=== PATIENT | male | born 1985 | race Caucasian/White ===

== ENCOUNTER 2020-05-03 13:34 | Outpatient (REF) | payer OTHER, SELFPAY ==
--- NOTE | 2020-05-03 13:35 | XR_ITS ---
EXAMINATION: XR KNEES, BILATERAL STANDING XR KNEE, RIGHT XR KNEE, LEFT CLINICAL INFORMATION: Pain COMPARISON: None TECHNIQUE: AP standing views of both knees as well as sunrise and lateral views of each knee. FINDINGS: There is no evidence of acute fracture or dislocation of the right or left knee. Joint spaces are maintained bilaterally. No significant degenerative spurring is seen. No right or left knee effusions are appreciated. There is minimal spurring about the lateral facet of the patellofemoral joint on the right. There is a small left patella spur seen site of insertion of the quadriceps tendon. XR/XR knee RT 2V IMPRESSION: No significant right or left knee abnormality appreciated.
--- NOTE | 2020-05-03 13:35 | XR_ITS ---
EXAMINATION: XR KNEES, BILATERAL STANDING XR KNEE, RIGHT XR KNEE, LEFT CLINICAL INFORMATION: Pain COMPARISON: None TECHNIQUE: AP standing views of both knees as well as sunrise and lateral views of each knee. FINDINGS: There is no evidence of acute fracture or dislocation of the right or left knee. Joint spaces are maintained bilaterally. No significant degenerative spurring is seen. No right or left knee effusions are appreciated. There is minimal spurring about the lateral facet of the patellofemoral joint on the right. There is a small left patella spur seen site of insertion of the quadriceps tendon. XR/XR knee standing BI IMPRESSION: No significant right or left knee abnormality appreciated.
--- NOTE | 2020-05-03 13:35 | XR_ITS ---
EXAMINATION: XR KNEES, BILATERAL STANDING XR KNEE, RIGHT XR KNEE, LEFT CLINICAL INFORMATION: Pain COMPARISON: None TECHNIQUE: AP standing views of both knees as well as sunrise and lateral views of each knee. FINDINGS: There is no evidence of acute fracture or dislocation of the right or left knee. Joint spaces are maintained bilaterally. No significant degenerative spurring is seen. No right or left knee effusions are appreciated. There is minimal spurring about the lateral facet of the patellofemoral joint on the right. There is a small left patella spur seen site of insertion of the quadriceps tendon. XR/XR knee LT 2V IMPRESSION: No significant right or left knee abnormality appreciated.
== END 2020-05-03 13:35 | disposition home or self-care (01) ==
LOC: HO.HOSX 13:34
PROVIDERS: PCP Nurse Practitioner Family; Referring Provider Nurse Practitioner Family; Visit Provider Orthopaedic Surgery
DX: M22.2X1 Patellofemoral disorders, right knee (principal); M22.2X2 Patellofemoral disorders, left knee; F17.210 Nicotine dependence, cigarettes, uncomplicated
CPT/HCPCS: 73560; 73565; 99202

== ENCOUNTER 2020-06-21 01:37 | Emergency (ER) | payer OTHER, SELFPAY ==
--- NOTE | 2020-06-21 | XR_ITS ---
EXAMINATION: ELBOW 3 VIEWS, LEFT CLINICAL INFORMATION: Pain following injury. COMPARISON: None. TECHNIQUE: AP, lateral, oblique views of the left elbow are provided. FINDINGS: There are no fractures or dislocations. No elbow joint effusion is identified. XR/XR elbow LT min 3V IMPRESSION: Unremarkable left elbow radiographs.
[2020-06-21 01:40] VITALS: BP 135/73; PULSE 85; RESP 16; TEMP 36.8; O2SAT 99; BMI 30.4
--- NOTE | 2020-06-21 03:31 | ED.EXTPRO ---
HPI - Extremity Problem General Chief complaint: Extremity Injury, Upper Stated complaint: Elbow swelling Time Seen by Provider: 06/21/20 03:31 Source: patient Mode of arrival: ambulatory Limitations: no limitations History of Present Illness HPI Narrative: Of the patient fell yesterday at work and landed on his back hitting his left elbow to the ground today woke up in the night because of increased pain in the left elbow noticed to have slight redness no open wound MD Complaint: extremity pain and extremity swelling Onset (ago): day(s) (1) Location: left Quality: aching Radiation: none Relieving factors: nothing Related Data Home Medications Medication Instructions Recorded Confirmed hydroxyzine HCl 25 mg tablet 25 mg PO BID PRN 05/03/20 sertraline PO 05/03/20 Previous Rx's Medication Instructions Recorded cephalexin [Keflex] 500 mg PO QID 10 Days #40 cap 06/21/20 doxycycline hyclate 100 mg PO BID 10 Days #20 tab 06/21/20 ibuprofen 600 mg PO Q6H PRN #20 tab 06/21/20 Allergies Allergy/AdvReac Type Severity Reaction Status Date / Time No Known Allergies Allergy Unverified 03/16/20 15:38 Review of Systems Review of Systems: Yes all other systems are reviewed and are negative PMFSH Past Medical History Medical History No known health problems Social History Social History Alcohol intake: never Packs Per Day: 0.5 Cigarettes Per Day: 10.0 Substance Use Type: Marijuana Advance Directives: No Advance Directives Information Provided: No Current occupational status: employed Current occupation: Right Handed Physical Exam Vital Signs: Vital Signs: Last Vital Signs Temp 98.2 F 06/21/20 01:40 Pulse 85 06/21/20 01:40 Resp 16 06/21/20 01:40 BP 135/73 06/21/20 01:40 Pulse Ox 99 06/21/20 01:40 Body Mass Index 30.4 Const: General: cooperative, healthy appearing, comfortable and no acute distress Extrem: Other: Soft tissue swelling at left olecranon bursa to touch no bony tenderness good range of movement of elbow as such Shoulder/upper arm images: 1. 2 x 2 cm erythematous soft tissue swelling at the olecranon tender>> bursitis MDM - Extremity (Nontraumatic) MDM Narrative Medical decision making narrative: Patient clinically with left olecranon bursitis with cellulitis likely got worse after the injury will give him Keflex and doxycycline and pain management give sling for support Imaging Data Left elbow: Attestation: I personally reviewed and interpreted this imaging study as follows: Radiologist's impression: XR/XR elbow LT min 3V IMPRESSION: Unremarkable left elbow radiographs. Discharge Plan Discharge Clinical Impression: Olecranon bursitis, left elbow Contusion of elbow, left Qualifiers: Encounter type: initial encounter Qualified Code(s): S50.02XA - Contusion of left elbow, initial encounter Patient Disposition: Home, Self-Care Instructions: Elbow Bursitis (ED), Contusion in Adults (ED) Additional Instructions: Wear the sling for support take pain medication and antibiotic as prescribed report to the ER if worsening of the redness/pain Prescriptions: New cephalexin [Keflex] 500 mg capsule 500 mg PO QID 10 Days Qty: 40 RF: 0 ibuprofen 600 mg tablet 600 mg PO Q6H PRN (Reason: pain) Qty: 20 RF: 0 doxycycline hyclate 100 mg tablet 100 mg PO BID 10 Days Qty: 20 RF: 0
[2020-06-21] MEDS: Ibuprofen 600 MG TABLET PO (04:07)
[2020-06-21] MEDS: cephALEXin 500 MG CAPSULE PO (04:07)
== END 2020-06-21 04:38 | disposition home or self-care (01) ==
PROVIDERS: Emergency Provider Internal Medicine
DX: S50.02XA Contusion of left elbow, initial encounter (principal); W01.0XXA Fall on same level from slipping, tripping and stumbling without subsequent striking against object, initial encounter; Y93.9 Activity, unspecified; Y92.9 Unspecified place or not applicable; Y99.0 Civilian activity done for income or pay
CPT/HCPCS: 73080; 99283

== ENCOUNTER 2024-06-11 11:30 | Outpatient (AMB) | payer OTHER, SELFPAY ==
--- NOTE | 2024-06-11 11:33 | MHC.OFFVIS ---
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 Patient reports this has is worse at night, he wakes up with both hands numb. Describes pain that radiates up into the right side of his neck. Reports difficulty with lifting, gripping, grasping, and squeezing when he is having pain. States his wrists feel tight and his hands get swelling causing him to be unable to make a full closed fist with strength. Patient reports numbness and tingling in all his bilateral digits. Hx of hand braces but he is unable to work with them. 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 Patient states that the symptoms have been going on for approximately 6 months, and that they have gradually worsened over that time. Patient states that his symptoms are intermittent, daily, and worse at night. Patient states that currently awakens from sleep. Patient states that he rarely experiences daytime symptoms. Patient states that all of his fingers go numb when his hand goes numb, but he is unsure if the small finger is actually involved or not. No other acute complaints or concerns at this time. [facility] Medical History No known health problems Social History Alcohol intake: never Patient Tobacco Use Status: Current everyday Tobacco user Tobacco use type: Cigarette Cigarette Packs Per Day: 0.5 Cigarettes Per Day: 10.0 Substance Use Type: Marijuana Current occupational status: employed Current occupation: Right Handed Review of Systems Const All systems reviewed & are unremarkable except as noted in HPI and below Physical Exam Vital Signs: BMI result Body Mass Index 28.9 Extrem Other: Normal sensation of the tips of all digits of bilateral hands in the office today No thenar or intrinsic wasting. Good APB muscle firing and good finger cross. Vascular: Capillary refill brisk. ROM: Patient can make a fist and extend all their digits. Skin: No lacerations or abrasions noted. General: No ecchymosis. No erythema or evidence of infection. Assessment & Plan Assessment & Plan (1) Numbness and tingling in both hands: Code(s): R20.0 - Anesthesia of skin; R20.2 - Paresthesia of skin Category: Medical Plan 1. Numbness and tingling of bilateral hands Symptoms intermittent, daily, worse at night Patient is educated about this condition and the diagnostic and treatment options available At this time, patient was referred for EMG and nerve conduction study for assessment of the health of the nerves bilateral upper extremities Patient was amenable to this plan Patient will follow-up after EMG and nerve conduction study for results review and discussion of further treatment options if indicated, sooner with any acute concerns Orders: Orders NE electromyogram (EMG) Today R20.0 - Anesthesia of skin, R20.2 - Paresthesia of skin NE nerve conduction velocity Today R20.0 - Anesthesia of skin, R20.2 - Paresthesia of skin Coding Level of Care Code New Pt Level 3 (25100) Diagnoses Numbness and tingling in both hands R20.0; R20.2
[2024-06-11 11:34] VITALS: BMI 28.9
--- OUTSIDE RECORDS SUMMARY | 2024-06-11 11:38 | XMS_ITS ---
Author Name [facility] [place] [facility] Address [address] [place] [address] Care Team Providers Care Reed Worker Name Role Phone MARIA DEL CARMEN REYES Primary Care Provide r Unavailable Selected Encounter This section includes the information on record at [place] for the Encounter. Date/Time Encounter Type Encounter Description Reason Pro vider Source May 12, 2024 11:57 AM Outpatient Encounter TELEPHONE TRIAGE IHE Encounter Template Text not used by [place] Plan of Treatment: Future Appointments (+ 6 months) and Future Tests (+/- 45 days) The Plan of Treatment section includes future care activities for the patient from all [place] treatmentfacilities. This section includes future appointments and future orders which are active, pending or scheduled. Future Appointments This section includes appointments that were scheduled to occur 6 months from the date of the Encounter, up to a maximum of 20 appointments. The data comes from all [place] treatment facilities. Appointment Date/Time Appointment Type Appointme nt Facility Name Jun 11, 2024 11:30 AM [facility]ORY [facility]INE [facility] Sep 17, 2024 01:00 PM AMBULATORY - MEDICINE [facility] Active, Pending, and Scheduled Orders This section includes a listing of several types of active, pending, and scheduled orders, including clinic medications orders, diagnostic test orders, procedure orders and consult orders; where the start date of the order is 45 days before the date of the Encounter or 45 days after the date of theEncounter. The data comes from all [place] treatment facilities. Test Date/Time Test Type Test Details Facility Name May 18, 2024 11:39 AM Consult Order [facility] [employer] Social History: Smoking Status (Most current) and Tobacco Use (All prior to encounter date) This section includes the most current, and the historical, smoking and tobacco- related health factors from the [place] facility where the Encounter took place. Current Smoking Status This section includes the most current smoking, or tobacco-related health factor, from the [place] facility where the Encounter took place. Date/Time Current Smoking Status Comment [facility] it Jun 09, 2019 03:29 PM CURRENT SMOKER [place] [facility] Tobacco Use History This section includes a history of the smoking, or tobacco-related health factors, that were collected on or before the date of the Encounter. The data comes from the [place] facility where the Encounter took place. Date/Time Smoking Status/Tobac co Use Comment Facility Jun 09, 2019 03:29 PM CURRENT SMOKER [place] [facility] [place] [facility] Mar 03, 2019 03:14 PM ORYX ADMIT TOBACCO SCREEN YES [facility] [place] [facility] Mar 03, 2019 03:14 PM ORYX ADMIT TOBACCO USE CIGS GR 5D [facility] [place] [facility] Mar 03, 2019 03:14 PM ORYX DAILY TOBACCO LEAD APPLIER RECEIVED [facility] [place] [facility] Mar 03, 2019 03:14 PM ORYX DAILY TOBACCO MEDS REFUSED [facility] [place] [facility] Mar 03, 2019 09:27 AM VA-TOBACCO USE 5 TO 15 YEARS [facility] [place] [facility] Mar 03, 2019 09:27 AM VA-TOBACCO USE ADVICE [facility] [place] [facility] Mar 03, 2019 09:27 AM VA-TOBACCO USE LEAD APPLIER NO [facility] [place] [facility] Mar 03, 2019 09:27 AM VA-TOBACCO USE MED NO [facility] [place] [facility] Mar 03, 2019 09:27 AM VA-TOBACCO USE WI 30 MIN OF WAKEUP [facility] [place] [facility] Mar 03, 2019 09:27 AM VA-TOBACCO USER EVERY DAY [facility] Jul 07, 2012 02:47 PM QUIT TOBACCO USE IN PAST YEAR quit [facility] month ago [facility] Encounter Notes: All associated encounter notes This section contains the clinical notes associated to the Encounter. Date/Time Encounter Note(s) Provider Source May 12, 2024 11:57 AM RN PROGRESS NOTE: LOCAL TITLE: CCC: CLINICAL TRIAGE STANDARD TITLE: RN PROGRESS NOTE DATE OF NOTE: MAY 12, 2024@11:57:14 ENTRY DATE: MAY 12, 2024@11:57:15 AUTHOR: AYANA BOLAÑOS EXP COSIGNER: URGENCY: STATUS: COMPLETED Patient Demographics Patient Name: BECK CIFUENTES Patient Primary [address]: [address] [place] [address] Patient Primary Phone: [phone] Patient : 1985 Patient Age: 39 Caller/Recipient Relation to Patient: Self Emergency Contact: PATRICK LOO Triage Summary Conducted triage/discussed symptoms Pain Score: 2 Utilized the Triage Tool: Yes Chief Complaint: Hand Pain (both hands) System WHEN: Within 24 Hours Nurse's Recommendation / WHEN: Within 24 Hours System WHERE: Clinic Nurse's Recommendation / WHERE: Clinic/[facility] Patient Disposition Patient/Caregiver agrees to plan of care: Yes Patient WHERE: Clinic/[facility] Patient WHEN: Within 24 hours Nursing Plan and Disposition Referred Patient for In-Person Appt Transferred patient to Sched & Admin-Apt Provided location of Urgent Care Center Advised of [place] [employer] [facility] Benefits Other course(s) of action Generated msg to PACT/Provider Provided guidance for worsening symptoms: *Caller/Patient* advised to call facilities [place] Clinical Contact Center or seek immediate medical attention for new or worsening symptoms Nurse Summary Nurse Summary: b/l hand & wrist pain x several months reports b/l hand & wrist pain x several months, feels that it might be carpal tunnel as his mother has similar history. denies injury, does work w/hands. at time of call right hand/wrist pain 2/10, left hand wrist 0/10 pain, states pain is worse is am. feels that hands are swollen in am, not red or swollen at time of call Plan: [facility] recommendation: medical eval w/in 24 hours, will go to local under ma w/worsening s/s or if unable to see pact [facility] [address] [place] [id number] Main number: [phone] [place] in agreement with [facility] RN recommendations. Message sent to 's PACT team via CPRS/CRM, View alerted 2 Pact Team members/Nurse/s PER VISN 1 Protocol for f/u. Caller/ verbalizes understanding of the information provided. Advised caller/ that a note will be forwarded to the provider and/or the manager wound care for review, further recommendations, and/or follow-up. Advised of 24 hour availability of clinical call center at [phone] to answer questions, address concerns & to provide assistance in navigating Healthcare for veterans. Given strict ED precautions to immediately seek treatment should their condition worsen, new signs or symptoms develop, or with any other emergent matters Modality: Warm conference call with [facility] for scheduling Verbalizes understanding to seek care in Urgent Care or Emergency Department should symptoms worsen before their appointment time. Clinical Contact Center Codes Clinic/Location: V1 CWM PHONE [facility] RN Decision Support System Output: Triage Complete Triage Date: 05/12/2024, 11:44 AM Triage Note: Decision Support Tool Used: TXCC Phone Triage Fri, 12 May 2024 16:39:30 +0000 [facility] Demographics 39 y/o Male Results CC: Hand Pain (both hands) Software suggested: Within 24 Hours Software suggested follow-up location: Clinic Values and Measures Duration of CC: 5 Months Positive Responses HPI: numbness, hands, new HPI: weakness, hands or arms Negative Responses Denies: HPI: hand pain, moderate to severe Denies: HPI: hand pain, radiation from neck Denies: HPI: hand pain, severe Denies: HPI: pain, radiation down arms Denies: HPI: skin erythema, hands Denies: HPI: urinary incontinence IMPORTANT: This note was created by [facility] Clinical Contact Center staff. Please do not alert the staff member by adding them as a signer for future communications. Alerts are not monitored by this user. /scot/ AYANA BOLAÑOS RN VISN1 [facility] Signed: 05/12/2024 11:57 Receipt Acknowledged By: 05/18/2024 09:42 /es/ ALIDA SPEAR LPN LPN 05/18/2024 10:04 /es/ LAQUITA ZAMAN RN REGISTERED NURSE AYANA BOLAÑOS [facility]
--- OUTSIDE RECORDS SUMMARY | 2024-06-11 11:38 | XMS_ITS | Continuity of Care Document ---
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 It does not include entries that were removed or entered in error. Problem Status Onset Date Problem Type Date of Resolution Comments Source Low Back Pain Active 006 Condition Jan 08, 2013 Entered By: BECK TATE Comment: worse on working [facility] Aftercare Following Surgery For Injury / Trauma Inactive Condition DoD joint pain, localized in the knee Active Condition DoD open wound of knee left Inactive Condition DoD lack of adequate sleep Active Condition DoD human papilloma virus infection Active Condition DoD acute bronchitis Inactive Condition DoD marital problem Inactive Condition DoD other specified family circumstances Active Condition 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 DoD headache syndromes Active Condition DoD Intervention And Counseling On Cessation Of Tobacco Use Active Condition DoD Body Mass Index Inactive Condition DoD obesity Active Condition DoD Patient Education Dietary Active Condition DoD Observation For Suspected Medical Condition Inactive Condition DoD no psychiatric diagnosis or condition on axis I Active Condition DoD Observation For Suspected Condition Inactive Condition DoD ankle sprain left Inactive Condition DoD borderline glaucoma Active Condition DoD scar Active Condition DoD acne Inactive Condition DoD nicotine dependence Active Condition DoD tobacco use Active Condition DoD 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 DoD refractive error - hypermetropia Active Condition DoD astigmatism regular Active Condition DoD Patient Education - Proper Use Of Medications Inactive Condition DoD visit for: routine eye exam Inactive Condition DoD abrasion or friction burn Inactive Condition DoD costochondritis (Tietze's syndrome) Inactive Condition DoD cellulitis of the right hand Inactive Condition DoD hand sprain right Inactive Condition DoD visit for: services physical separation Active Condition DoD visit for: laboratory Active Condition DoD visit for: screening exam pulmonary tuberculosis Active Condition DoD Need For Vaccination Against Bacterial Diseases Active Condition DoD Need For Vaccination Against Smallpox Active Condition DoD Need For Vaccination Hepatitis B Active Condition DoD visit for: services physical Active Condition DoD Cognitive Skills - Judgement Activities Inactive Condition DoD Need For Vaccination Against Influenza Inactive Condition DoD Need For Vaccination Typhoid Active Condition DoD Need For Vaccination Against Combinations Of Diseases Active Condition DoD Patient Education - Injury Prevention Inactive Condition DoD Guidance: Concerns About Alcohol Use Inactive Condition DoD Guidance: Concerns About Tobacco Use Active Condition DoD Guidance: Concerns About Unsafe Sexual Practices Inactive Condition DoD Patient Counseling: Active Condition DoD visit for: administrative purpose Inactive Condition DoD visit for: follow-up exam Inactive Condition DoD warts genital Inactive Condition DoD visit for: ears / hearing exam Active Condition DoD assessment of patient condition work-related Inactive Condition DoD warts genital Active Condition will u se liquid nitrogen on these to treat DoD common cold Inactive Condition DoD refractive error Active Condition DoD visit for: services physical accession Inactive Condition DoD Anxiety depression Active Condition [facility] Chronic post-traumatic stress disorder (SNOMED CT [id number]) Active Condition Jan 08, 2013 Entered By: BECK TATE [facility]: [facility] Entered By: BOBBI CARL Comment: reviewed [facility] Condylomata Acuminata Active Condition [place]/PERIODONT DIS NOS Active Condition [facility] History of calculus of kidney Active Condition [facility] History of male erectile disorder Active Condition Jun 07 13 Entered By: BECK TATE Comment: intermitant, worsening over last year [facility] Knee [facility] pain Active Condition [facility] LACK OF HOUSING Active Condition [facility] Personal History of Combat and Operational Stress Reaction Active Condition [facility] Renal colic Active Condition Nov 29, 2016 Entered By: LEYDI GARCIA Comment: Diagnosed and treated by [facility] on 11/29/2016 [facility] Thoracic back pain Active Condition [facility] Tobacco user Active Condition Jun 07, 2013 Entered By: BECK TATE Comment: 0.5ppd [facility] Allergies, Adverse Reactions, Alerts Combined list of allergies from 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 It does not include entries that were removed or entered in error. Substance Category Reaction Severity Reaction type Status Date Reported Comments Source No Known Allergies Drug allergy (disorder) active 04/29/2008 Conrad FLEMING Immunizations Combined list of available immunizations from the 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 Immunization Series Date Given Administered By Site Reaction Lot Number CVX Code Drug Rn Staffing Status Comments Source FLU,3 YRS (HISTORICAL) 2016 88 complet ed [facility] DTAP, UNSPECIFIED FORMULATION 2014 107 complet ed [facility] FLU,3 YRS (HISTORICAL) 2011 88 complet ed [facility] FLU,3 YRS (HISTORICAL) 2011 88 complet ed Miliatry [facility] tetanus toxoid, reduced diphtheria toxoid, and acellular pertu is vaccine, adsorbed 1 2011 LAQUITA ARREGUIN [id number] [place], [place] [address] complet ed tetanus toxoid, reduced diphtheri a toxoid, and acellular pertussis vaccine, adsorbed DoD influenza virus vaccine, live, attenuated, for intranasal use 1 2010 [id number] Unknown (UNK) comple t ed influenza virus vaccine, live, attenuate d, for intranasa l use DoD influenza virus vaccine, split virus (incl. purified surface antigen)-reti red CODE 1 2009 [id number] Sanofi Pasteur (PMC) complet ed influenza virus vaccine, split virus (incl. purified surface antigen)- retired CODE DoD anthrax vaccine 6 2009 [id number] Unknown (UNK) comple t ed anthrax vaccine DoD PNEUMOCOCCAL, UNSPECIFIED FORMULATION 2009 109 complet ed . [facility] anthrax vaccine 5 2009 [id number] [employer] [place] ([facility]) complet ed anthrax vaccine DoD typhoid Vi capsular polysaccharid e vaccine 1 2009 [id number] Sanofi Pasteur (PMC) complet ed typhoid Vi capsular polysacch aride vaccine DoD DTAP, UNSPECIFIED FORMULATION 2009 107 complet ed [facility] Novel influenza-H1N 1-09, injectable 1 2008 [id number] 127 Pixta. (NOV) complet ed Novel influenza -Q1V5-85, injectabl e DoD influenza virus vaccine, live, attenuated, for intranasal use 1 2008 [id number] 111 Given Goods. (MED) complet ed influenza virus vaccine, live, attenuate d, for intranasa l use DoD influenza virus vaccine, live, attenuated, for intranasal use 1 2008 [id number] 111 [employer]. (MED) complet ed influenza virus vaccine, live, attenuate d, for intranasa l use DoD influenza virus vaccine, live, attenuated, for intranasal use 1 2007 [id number] 111 Unknown (UNK) comple t ed influenza virus vaccine, live, attenuate d, for intranasa l use DoD anthrax vaccine 4 2007 [id number] [employer] [place] (MIP) complet ed anthrax vaccine DoD anthrax vaccine 3 2007 [id number] Unknown (UNK) comple t ed anthrax vaccine DoD anthrax vaccine 2 2007 [id number] 24 [employer] [place] (MIP) complet ed anthrax vaccine DoD hepatitis A vaccine, adult dosage 3 2007 [id number] 52 Unknown (UNK) comple t ed hepatitis A vaccine, adult dosage DoD anthrax vaccine 1 2007 ZEB GENTILE [id number] 24 [employer] [place] ([facility]) complet ed anthrax vaccine DoD hepatitis B vaccine, adult dosage 2 2007 ZEB GENTILE [id number] 43 SmithKline (SKB) complet ed hepatitis B vaccine, adult dosage DoD vaccinia (smallpox) vaccine 1 2007 ZEB GENTILE [id number] WyjulianneA[place]arl[place] (WAL) complet ed vaccinia (smallpox ) vaccine DoD tuberculin skin test; purified protein derivative solution, intradermal 1 2007 ZEB GENTILE [id number] 96 [place] (PD) complet ed tuberculi n skin test; purified protein derivativ e solution, intraderm al DoD influenza virus vaccine, split virus (incl. purified surface antigen)-reti red CODE 1 2006 [id number] 15 SmithKline (SKB) complet ed influenza virus vaccine, split virus (incl. purified surface antigen)- retired CODE DoD typhoid Vi capsular polysaccharid e vaccine 1 2006 [id number] Sanofi Pasteur (PMC) complet ed typhoid Vi capsular polysacch aride vaccine DoD hepatitis A and hepatitis B vaccine 2 2006 [id number] 104 [employer]VisorKline (SKB) complet ed hepatitis A and hepatitis B vaccine DoD poliovirus vaccine, inactivated 1 2006 [id number] 10 Sanofi Pasteur (PMC) complet ed polioviru s vaccine, inactivat ed DoD measles, mumps and rubella virus vaccine 1 2006 UNK 03 Unknown (UNK) Not Given measles, mumps and rubella virus vaccine DoD varicella virus vaccine 1 2006 UNK 21 Unknown (UNK) Not Given varicella virus vaccine DoD hepatitis B vaccine, adult dosage 1 2006 UNK 43 Unknown (UNK) Not Given hepatitis B vaccine, adult dosage DoD hepatitis A vaccine, adult dosage 1 2006 [id number] 52 Merck (MSD) complet ed hepatitis A vaccine, adult dosage DoD meningococcal polysaccharid e (groups A, C, Y and W-135) diphtheria toxoid conjugate vaccine (MCV4P) 1 2006 [id number] 114 Sanofi Pasteur (PMC) complet ed meningoco ccal polysacch aride (groups A, C, Y and W-135) diphtheri a toxoid conjugate vaccine (MCV4P) DoD tetanus toxoid, reduced diphtheria toxoid, and acellular pertu is vaccine, adsorbed 1 2006 [id number] 115 Sanofi Pasteur (PMC) complet ed tetanus toxoid, reduced diphtheri a toxoid, and acellular pertussis vaccine, adsorbed DoD Encounters Combined list of: 1) Encounters from Department of Veterans Affairs facilities going back up to thelast 18 months. 2) Encounters from the Department of Defense facilities going back up to 280 months. Location Location Details Encounter Type Encounter Number Reason For Visit Attending Provider ADM Date DC Date Status Disposition Source [employer](PES Optometry -Trainee) OUTPATIENT [id number] YARIEL CAN 12/19 Released w/o Limitations [employer](P ES Optomet ry-Kyree nee) [employer](TMC Ambulator y) OUTPATIENT [id number] TESS STEPHENSON 01/09 Released w/o Limitations [employer](T MC Ambulat ory) [employer](TMC Ambulator y) OUTPATIENT [id number] BUSTER JULIAN 01/16 Released w/o Limitations [employer](T MC Ambulat ory) [employer](IEP Hearing Conservat ion) OUTPATIENT [id number] BASIL THAYER 01/21 Released w/o Limitations [employer](I EP Hearing Conserv ation) [employer]([facility]MC Ambulator y) OUTPATIENT [id number] MARCELA MELÉNDEZ 02/05 Released w/o Limitations [employer](T MC Ambulat ory) [employer]([facility]MC Ambulator y) OUTPATIENT [id number] KOBE SANDHU 02/11 Released w/o Limitations [employer](T MC Ambulat ory) [employer](TMC Ambulator y) OUTPATIENT [id number] F/U ANANT LINDQUIST 02/18 Released w/o Limitations [employer](T MC Ambulat ory) [employer]([facility]MC Ambulator y) OUTPATIENT [id number] BUSTER JULIAN 02/24 Released w/o Limitations [employer](T MC Ambulat ory) BERNADETTE Wharton([facility]) OUTPATIENT [id number] SELF CARE CLASS ROXANA ACUNA 03/05 Released w/o Limitations [facility]) [facility]ERNADETTE Wharton([facility]) OUTPATIENT [id number] PT HERE FOR IMMUN CLINIC ONLY/[facility] VICENTE MAGALLON 04/29 Released w/o Limitations [facility]ERNA[facility] Pino(Inte rnal Medicin e Clinic) [facility] Primary Care) OUTPATIENT [id number] flu shot ZEB GENTILE 07/13 Released w/o Limitations [facility] Primary [facility]) [facility]) OUTPATIENT [id number] INPROC MEHDI KAMARA 07/17 Released w/o Limitations [facility]) [facility] Primary Care) OUTPATIENT [id number] PETRA FISHER 08/10 Released w/o Limitations [facility] Primary Care) [facility](Z [facility]SK Primary Care) OUTPATIENT [id number] f/u STD PETRA MAYERS 08/18 Released w/o Limitations [facility] Primary Care) [facility](Z [facility]SK Primary Care) OUTPATIENT [id number] SAMANTHAAdrianZEB 08/20 Released w/o Limitations [facility] Primary Care) [facility] OUTPATIENT [id number] 02/12 Released w/o Limitations Theater Facilit y [facility] Pre/Post Deploymen t) OUTPATIENT [id number] CATARINA BYRNE 04/30 Released w/o Limitations [facility] Pre/Pos t Deploym ent) [facility] Optometry ) OUTPATIENT [id number] chapter PAM Mcfadden 11/30 Released w/o Limitations [facility] Optomet ry) [facility](1AD 2CR [facility] [place]) OUTPATIENT [id number] CATARINA Pardo 12/15 Released w/o Limitations [facility](1AD 2CR [address] [place] N) [facility](1AD 2CR 6TH [place]) OUTPATIENT [id number] infecte d R hand KARISSA LOZANO 03/08 Immediate Referral [facility](1AD 2CR [facility] [place] N) [facility](1AD 2CR 6[facility] [place]) OUTPATIENT [id number] d/c KARISSA LOZANO 03/09 Released w/o Limitations [facility](1AD 2CR [address]TH [place] N) [facility] OUTPATIENT [id number] 11/03 Released w/o Limitations Theater Fac[facility] y [facility] OUTPATIENT [id number] 12/15 Released w/o Limitations Theater Facilit y [facility](Hearin g Conservat ion 2) OUTPATIENT [id number] Hearing Exam FREDRICK HASSAN Shilo 04/19 Released w/o Limitations [facility](Hear ing Conserv ation 2) [facility](Optome try Clinic) OUTPATIENT [id number] eye exam GAIL VERÓNICA K 05/28 Released w/o Limitations [facility](Opto metry Clinic) [facility]) OUTPATIENT [id number] visual field24 -2 LOIDA REYNOLDSELLI Hewitt 05/31 Released w/o Limitations [facility](Opto metry Clinic) [facility]) OUTPATIENT [id number] 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 Alvarado v/f 30-2 Fast YANNI ALVARADO 12/17 Released w/o Limitations [facility](Opht halmolo gy Clinic) [facility](Ophtha lmology Clinic) OUTPATIENT [id number] per Dr. Alvarado V/F ...use cyclo RX YANNI ALVARADO 01/09 Released w/o Limitations [facility](Deploy ment) OUTPATIENT [id number] PDHRA/V PRINCESS POLLOCK Tucker 01/09 Released w/o Limitations [facility](Depl oyment) JIAN [facility](Aviati on Clinic) OUTPATIENT [id number] Ankle Pain MORENO OLIVEIRA 04/18 Released with Work/Duty Limitations [facility]) OUTPATIENT [id number] MARGARITA FARMER 04/27 Released w/o Limitations [facility]) [facility]([employer] JAYSHREE Level 1) OUTPATIENT [id number] EVAL MARIA DEL ROSARIO ANG E 06/05 Released w/o Limitations [facility] M JAYSHREE Level 1) [facility]) OUTPATIENT [id number] YISEL JACOBS 06/10 Released w/o Limitations [facility]) [facility] JAYSHREE Level 1) OUTPATIENT [id number] rtm MARIA DEL ROSARIO ANG E 07/22 Released w/o Limitations [facility](IMCO M JAYSHREE Level 1) [facility] JAYSHREE Level 1) OUTPATIENT [id number] grp MARIA DEL ROSARIO ANG E 07/25 Released w/o Limitations [facility](IMCO M JAYSHREE Level 1) [facility](Clinic al Dietetics ) OUTPATIENT [id number] self referre d weight managem ent GWYN MCDONALD 08/05 Released w/o Limitations JINA [facility](Clin ical Dieteti cs) JINA Weber([facility] JAYSHREE Level 1) OUTPATIENT [id number] [facility] ANG, MARIA DEL ROSARIO E 08/08 Released w/o Limitations [facility] [place]IMCO M JAYSHREE Level 1) [facility] [place] JAYSHREE Level 1) OUTPATIENT [id number] [facility] ANG, MARIA DEL ROSARIO E 08/15 Released w/o Limitations [facility] [place]IM[facility] M JAYSHREE Level 1) [facility] [place]AY[place] Level 1) OUTPATIENT [id number] [facility] ANGMARIA DEL ROSARIO E 08/26 Released w/o Limitations [facility] [place] M JAYSHREE Level 1) [facility] [place] Level 1) OUTPATIENT [id number] [facility] ANGMARIA DEL ROSARIO E Released w/o Limitations [facility] [place] JAY[place] Level 1) [facility] [place] Level 1[place] OUTPATIENT [id number] [facility] ANG, MARIA DEL ROSARIO E 09/01 Released w/o Limitations [facility] [place]AY[place] Level 1) [facility] [place] [place] Level 1[place] OUTPATIENT [id number] [facility] ANG, MARIA DEL ROSARIO E 09/03 Released w/o Limitations [facility] [place] JAY[place]REE Level 1) [facility] [place](IMCOM JAYSHREE Level 1) OUTPATIENT [id number] [facility] ANGMARIA DEL ROSARIO E 09/15 Released w/o Limitations [facility] [place] M JAYSHREE Level 1) [facility] [place](IMCOM JAYSHREE Level 1) OUTPATIENT [id number] [facility] ANG, MARIA DEL ROSARIO E 09/23 Released w/o Limitations [facility] [place] M JAYSHREE Level 1) Watson[facility]INA Richey([facility]) OUTPATIENT [id number] Tobacco cessati on [facility] E 10/06 Released w/o Limitations [facility] J[facility] Armijo([facility]) WatsonJINA Richey(Aviati on [facility]) OUTPATIENT [id number] LUIS Alonso J 10/13 Released w/o Limitations [facility](Avia tion Clinic) [facility]) OUTPATIENT [id number] eye exam VERÓNICA REYNOLDS 10/15 Released w/o Limitations [facility](Opto metry Clinic) J[facility] M01C WTT 3) OUTPATIENT [id number] Chapter 14-12C HORTENSIA LCANCY 11/04 Released w/o Limitations JINA Weber([facility] M01C WTT 3) JINA Weber([facility]) OUTPATIENT [id number] chapter physicVERÓNICA Castellon 11/04 Released w/o Limitations [facility](Opto metry Clinic) [facility](Hearin g Conservat ion 2) OUTPATIENT [id number] Hearing Exam FREDRICK HASSAN 11/04 Released w/o Limitations [facility](Hear ing Conserv ation 2) [facility] OUTPATIENT [id number] DOC SANTIAGO 11/24 Sick at Home/Quarter s [facility]INA [facility]) JINA Weber(Aviati on Clinic) OUTPATIENT [id number] part 2 CHAPTER physicMORENO Momin 12/02 Released w/o Limitations JINA [facility](Avia tion Clinic) [facility](Aviati on Clinic) OUTPATIENT [id number] cyst on head WILIAN MANZANARES Aby 01/08 Released w/o Limitations [facility](Avia [facility]ion Clinic) [facility] OUTPATIENT [id number] FREDRICK MARTIN 01/10 Released w/o Limitations [facility]) [facility] OUTPATIENT [id number] DOC SANTIAGO 01/11 Released w/o Limitations JINA Weber([facility]) JINA Weber([facility]) OUTPATIENT [id number] mitali jaimes f/u MORENO OLIVEIRA 01/13 Released with Work/Duty Limitations JINA [facility]) [facility] Encounter [id number] DEBBIE UNGER 11/16 [facility] En[facility] [id number] 12/09 [facility] Encounter [id number] 12/09 [facility] Encounter [id number] 05/12 [facility] Out[facility] Encounter [id number] 05/12 [facility] Procedures Combined list of: 1) Procedures from Department of Veterans Affairs facilities going back up to thelast 18 months, not all VA non-surgical procedures are included; 2) All procedures from the Department of Defense facilities. Procedure Procedure Type Code Date Perfomer Comments Sourc e DESTRUCTION OF LESION(S), PENIS (EG, CONDYLOMA, PAPILLOMA, MOLLUSCUM CONTAGIOSUM, HERPETIC VESICLE), SIMPLE; CRYOSURGERY 02/25/20 07 DoD DESTRUCTION (EG, LASER SURGERY, ELECTROSURGERY, CRYOSURGERY, CHEMOSURGERY, SURGICAL CURETTEMENT), OF BENIGN LESIONS OTHER THAN SKIN TAGS OR CUTANEOUS VASCULAR PROLIFERATIVE LESIONS; UP TO 14 LESIONS 02/12/20 DoD DESTRUCTION (EG, LASER SURGERY, ELECTROSURGERY, CRYOSURGERY, CHEMOSURGERY, SURGICAL CURETTEMENT), OF BENIGN LESIONS OTHER THAN SKIN TAGS OR CUTANEOUS VASCULAR PROLIFERATIVE LESIONS; UP TO 14 LESIONS 02/06/20 DoD PHYS/OTH QUALIFIED [employer] PRODUCTS GLAZER QUALIFIED,EDUCATION,T RAIN,LICENSURE/REGULA TION (WHEN APPLICABLE) EDUC SER RENDERED TO PATS IN A GRP SETTING (EG,,OBESITY, OR DIABETIC INSTRUCT) 01/22/20 07 [facility] DESTRUCT (EG, LASER SURGERY, ELECTROSURGERY, CRYOSURGERY, CHEMOSURGERY, SURGICAL CURETTEMENT), PREMALIGNANT LESIONS (EG, ACTINIC KERATOSES); 2ND THRU 14 LESIONS, EA (LIST SEP ADDITION CD, 1ST LESION) 01/17/20 07 [facility] DETERMINATION OF REFRACTIVE STATE 12/20/19 07 [facility] INFLUENZA VIRUS VACCINE, TRIVALENT (IIV3), SPLIT VIRUS, 0.5 ML DOSAGE, FOR INTRAMUSCULAR USE 04/29/20 07 [facility] EDUCATIONAL SUPPLIES, SUCH BOOKS, TAPES, AND PAMPHLETS, FOR THE PATIENT'S EDUCATION AT COST TO PHYSICIAN OR OTHER QUALIFIED HEALTH [employer] PRODUCTS GLAZER 03/05/20 07 [facility] PSYCHIATRIC EVALUATION OF HOSPITAL RECORDS, OTHER PSYCHIATRIC REPORTS, PSYCHOMETRIC AND/OR PROJECTIVE TESTS, AND OTHER ACCUMULATED DATA FOR MEDICALDIAGNOSTIC PURPOSES 03/26/20 12 [facility] PREPARATION OF REPORT OF PATIENT'S PSYCHIATRIC STATUS, HISTORY, TREATMENT, OR PROGRESS (OTHER THAN FOR LEGAL OR CONSULTATIVE PURPOSES) FOR OTHER INDIVIDUALS, AGENCIES, OR INSURANCE CARRIERS 02/19/20 12 [facility] PSYCHIATRIC DIAGNOSTIC INTERVIEW EXAMINATION 02/13/20 12 [facility] FAMILY PSYCHOTHERAPY (CONJOINT PSYCHOTHERAPY) (WITH PATIENT PRESENT), 50 MINUTES 02/10/20 12 [facility] CRUTCHES UNDERARM, WOOD, ADJUSTABLE OR FIXED, PAIR, WITH PADS, TIPS AND HANDGRIPS 01/12/20 12 [facility] SIMPLE REPAIR OF SUPERFICIAL WOUNDS OF SCALP, NECK, AXILLAE, EXTERNAL GENITALIA, TRUNK AND/OR EXTREMITIES (INCLUDING HANDS AND FEET); 20.1 CM TO 30.0 CM 01/11/20 12 [facility] FAMILY PSYCHOTHERAPY (CONJOINT PSYCHOTHERAPY) (WITH PATIENT PRESENT), 50 MINUTES 01/10/20 12 [facility] FAMILY PSYCHOTHERAPY (CONJOINT PSYCHOTHERAPY) (WITH PATIENT PRESENT), 50 MINUTES 12/30/19 12 [facility] PSYCHIATRIC EVALUATION OF HOSPITAL RECORDS, OTHER PSYCHIATRIC REPORTS, PSYCHOMETRIC AND/OR PROJECTIVE TESTS, AND OTHER ACCUMULATED DATA FOR MEDICALDIAGNOSTIC PURPOSES 11/20/19 12 [facility] PREPARATION OF REPORT OF PATIENT'S PSYCHIATRIC STATUS, HISTORY, TREATMENT, OR PROGRESS (OTHER THAN FOR LEGAL OR CONSULTATIVE PURPOSES) FOR OTHER INDIVIDUALS, AGENCIES, OR INSURANCE CARRIERS 11/07/19 12 [facility] AUDIOMETRIC TESTING OF GROUPS 11/05/19 12 [facility] SCREENING TEST OF VISUAL ACUITY, QUANTITATIVE, BILATERAL 11/05/19 12 [facility] INDIVIDUAL PSYCHOTHERAPY, INSIGHT ORIENTED, BEHAVIOR MODIFYING AND/OR SUPPORTIVE, IN AN OFFICE OR OUTPATIENT FACILITY, APPROXIMATELY 45 TO 50 MINUTES [id number] WITH THE PATIENT 10/29/19 12 [facility] FITTING OF SPECTACLES, EXCEPT FOR APHAKIA; MONOFOCAL 10/16/19 12 [facility] INTERPRETATION OR EXPLANATION OF RESULTS OF PSYCHIATRIC, OTH MEDICAL EXAMS/PROCEDURES, OR OTH ACCUMULATED DATA TO FAMILY OR OTH RESPONSIBLE PERSONS,OR ADVISING THEM HOW TO ASSIST PATIENT 09/24/19 12 [facility] INTERACTIVE GROUP PSYCHOTHERAPY 09/16/19 12 [facility] INTERACTIVE GROUP PSYCHOTHERAPY 09/04/19 12 [facility] ALCOHOL AND/OR DRUG SERVICES; GROUP COUNSELING BY A CLINICIAN 09/02/19 [facility] ALCOHOL AND/OR DRUG SERVICES; GROUP COUNSELING BY A CLINICIAN 08/28/19 12 [facility] ALCOHOL AND/OR DRUG SERVICES; GROUP COUNSELING BY A CLINICIAN 08/26/19 12 [facility] ALCOHOL AND/OR DRUG SERVICES; GROUP COUNSELING BY A CLINICIAN 08/07/19 12 [facility] MEDICAL NUTRITION THERAPY; INITIAL ASSESSMENT AND INTERVENTION, INDIVIDUAL, [id number] WITH THE PATIENT, EACH 15 MINUTES 08/05/19 [facility] ALCOHOL AND/OR DRUG SERVICES; GROUP COUNSELING BY A CLINICIAN 07/29/19 12 [facility] ALCOHOL AND/OR DRUG SERVICES; GROUP COUNSELING BY A CLINICIAN 07/24/19 12 [facility] INTERPRETATION OR EXPLANATION OF RESULTS OF PSYCHIATRIC, OTH MEDICAL EXAMS/PROCEDURES, OR OTH ACCUMULATED DATA TO FAMILY OR OTH RESPONSIBLE PERSONS,OR ADVISING THEM HOW TO ASSIST PATIENT 07/22/19 12 [facility] SIMPLE REPAIR OF SUPERFICIAL WOUNDS OF SCALP, NECK, AXILLAE, EXTERNAL GENITALIA, TRUNK AND/OR EXTREMITIES (INCLUDING HANDS AND FEET); 2.5 CM OR LESS 06/10/20 11 [facility] BEHAVIORAL HEALTH SCREENING TO DETERMINE ELIGIBILITY FOR ADMISSION TO TREATMENT PROGRAM 06/05/20 11 [facility] ALBUTEROL, INHALATION SOLUTION, FDA-APPROVED FINAL PRODUCT, NON-COMPOUNDED, ADMINISTERED THROUGH DME, UNIT DOSE, 1 MG 04/27/20 11 [facility] SCREENING TEST OF VISUAL ACUITY, QUANTITATIVE, BILATERAL 01/10/20 11 [facility] VISUAL FIELD EXAM,UNILAT/BI,INTERP &REP;EXT EXM(EG,GOLDMANN VIS FLD,AT LEAST 3 ISOP PLOT&STAT DET W/IN RHYS 30DEG/QUANT,AUTO THRSH LINDA,OCT G-1,32/42,HUMP VIS FLD ANAL FULL THRSH 30-2,24-2, OR 30/60-2) 01/10/20 11 [facility] SCANNING COMPUTERIZED OPHTHALMIC DIAGNOSTIC IMAGING, POSTERIOR SEGMENT, WITH INTERPRETATION AND REPORT, UNILATERAL OR BILATERAL; OPTIC NERVE 12/18/19 11 [facility] COMPUTERIZED CORNEAL TOPOGRAPHY, UNILATERAL OR BILATERAL, WITH INTERPRETATION AND REPORT 11/30/19 11 [facility] DESTRUCTION (EG, LASER SURGERY, ELECTROSURGERY, CRYOSURGERY, CHEMOSURGERY, SURGICAL CURETTEMENT), OF BENIGN LESIONS OTHER THAN SKIN TAGS OR CUTANEOUS VASCULAR PROLIFERATIVE LESIONS; UP TO 14 LESIONS 11/22/19 11 [facility] VISUAL FIELD EXAM,UNILAT/BI,INTERP &REP;EXT EXM(EG,GOLDMANN VIS FLD,AT LEAST 3 ISOP PLOT&STAT DET W/IN RHYS 30DEG/QUANT,AUTO THRSH LINDA,OCT G-1,32/42,HUMP VIS FLD ANAL FULL THRSH 30-2,24-2, OR 30/60-2) 05/31/20 10 [facility] VISUAL FIELD EXAM,UNILAT/BI,INTERP &REP;EXT EXM(EG,GOLDMANN VIS FLD,AT LEAST 3 ISOP PLOT&STAT DET W/IN RHYS 30DEG/QUANT,AUTO THRSH LINDA,OCT G-1,32/42,HUMP VIS FLD ANAL FULL THRSH 30-2,24-2, OR 30/60-2) 05/28/20 10 [facility] COLLECTION OF VENOUS BLOOD BY VENIPUNCTURE 04/19/20 10 [facility] SCREENING TEST OF VISUAL ACUITY, QUANTITATIVE, BILATERAL 04/19/20 10 [facility] EAR PROTECTOR ATTENUATION MEASUREMENTS 04/19/20 10 [facility] COLLECTION OF VENOUS BLOOD BY VENIPUNCTURE 07/31/19 10 [facility] SCREENING TEST OF VISUAL ACUITY, QUANTITATIVE, BILATERAL 07/04/19 10 [facility] COLLECTION OF VENOUS BLOOD BY VENIPUNCTURE 07/04/19 10 [facility] PSYCHIATRIC DIAGNOSTIC INTERVIEW EXAMINATION 12/06/19 09 [facility] SCREENING TEST OF VISUAL ACUITY, QUANTITATIVE, BILATERAL 12/01/19 09 [facility] COLLECTION OF VENOUS BLOOD BY VENIPUNCTURE 04/30/20 08 [facility] IMMUNIZATION ADMINISTRATION (INCLUDES PERCUTANEOUS, INTRADERMAL, SUBCUTANEOUS, OR INTRAMUSCULAR INJECTIONS); 1 VACCINE (SINGLE OR COMBINATION VACCINE/TOXOID) 08/20/19 08 [facility] HEALTH AND BEHAVIOR INTERVENTION, EACH 15 MINUTES, [id number]; GROUP (2 OR MORE PATIENTS) 07/08/19 08 [facility] Psychiatric Diagnostic Evaluation Review of Records and Reports Psychiatric Diagnostic Evaluation Review of Records and Reports [id number] 07/14/19 13 CAROLYN ABDALLA [facility] Psychiatric Therapy Preparation of Psychiatric Status Report Psychiatric Therapy Preparation of Psychiatric Status Report [id number] 07/14/19 13 CAROLYN ABDALLA [facility] Psychiatric Diagnostic Evaluation Comprehensive Examination Psychiatric Diagnostic Evaluation Comprehensive Examination [id number] 02/20/20 12 JOHNTAHAN WILKERSON [facility] Psychiatric Therapy Preparation of Psychiatric Status Report Psychiatric Therapy Preparation of Psychiatric Status Report [id number] 02/19/20 12 FLORA KILLIAN [facility] Psychiatric Diagnostic Evaluation Review of Records and Reports Psychiatric Diagnostic Evaluation Review of Records and Reports [id number] 02/19/20 12 FLORA KILLIAN [facility] Clinical Social Work Counseling Marital 02/11/20 12 LULU MYERS [facility] Crutches, underarm, wood, adjustable or fixed, pair, with pads, tips and handgrips 01/12/20 12 DOC SANTIAGO [facility] Clinical Social Work Counseling Marital 01/10/20 12 LULU MYERS [facility] Clinical Social Work Counseling Marital 12/30/19 12 LULU MYERS [facility] Psychiatric Diagnostic Evaluation Review of Records and Reports Psychiatric Diagnostic Evaluation Review of Records and Reports [id number] 11/21/19 12 JENNIFER STRINGER [facility] Psychiatric Therapy Preparation of Psychiatric Status Report Psychiatric Therapy Preparation of Psychiatric Status Report [id number] 11/21/19 12 JENNIFER STRINGER [facility] Psychiatric Therapy Preparation of Psychiatric Status Report Psychiatric Therapy Preparation of Psychiatric Status Report [id number] 11/08/19 12 MADDIE NATION [facility] Psychiatric Diagnostic Evaluation Comprehensive Examination Psychiatric Diagnostic Evaluation Comprehensive Examination [id number] 11/08/19 12 MADDIE NATION [facility] Screening Test Of Visual Acuity, Quantitative, Bilateral Screening Test Of Visual Acuity, Quantitative, Bilateral [id number] 11/05/19 12 VERÓNICA REYNOLDS [facility] Audiogram (Screening) Audiogram (Screening) [id number] 11/05/19 12 FREDRICK HASSAN [facility] Audiometry Group Testing Audiometry Group Testing [id number] 11/05/19 12 FREDRICK HASSAN [facility] Clinical Social Work Individual Outpatient Counseling 45 Minutes Clinical Social Work Individual Outpatient Counseling 45 Minutes [id number] 10/29/19 12 JENNIFER STRINGER [facility] Spectacles Services Fitting Monofocal Except For Aphakia Spectacles Services Fitting Monofocal Except For Aphakia 60383 10/16/19 12 VERÓNICA REYNOLDS fit by tech [facility] Ophthalmological Prior Patient Start Comprehensive Care Ophthalmological Prior Patient Start Comprehensive Care [id number] 10/16/19 12 VERÓNICA REYNOLDS [facility] Determination Of Refractive State Determination Of Refractive State 77047 10/16/19 12 VERÓNICA REYNOLDS [facility] Scanning Computerized Ophthalmic Diagnostic Imaging Optic Nerve Scanning Computerized Ophthalmic Diagnostic Imaging Optic Nerve 81145 10/16/19 12 VERÓNICA REYNOLDS [facility] Psychiatric Therapy Counseling Family / Guardians Psychiatric Therapy Counseling Family / Guardians [id number] 09/24/19 12 MARIA DEL ROSARIO ANG E DoD Alcohol and/or drug services; group counseling by a clinician 09/16/19 12 MARIA DEL ROSARIO ANG E DoD Psychotherapy Group Interactive Psychotherapy Group Interactive [id number] 09/16/19 12 MARIA DEL ROSARIO ANG E DoD Alcohol and/or drug services; group counseling by a clinician 09/12/19 12 MARIA DEL ROSARIO ANG E DoD Psychotherapy Group Interactive Psychotherapy Group Interactive [id number] 09/12/19 12 MARIA DEL ROSARIO ANG E DoD Alcohol and/or drug services; group counseling by a clinician 09/06/19 12 MARIA DEL ROSARIO ANG E DoD Psychotherapy Group Interactive Psychotherapy Group Interactive [id number] 09/06/19 12 MARIA DEL ROSARIO ANG E DoD Alcohol and/or drug services; group counseling by a clinician 08/29/19 12 MARIA DEL ROSARIO ANG E DoD Psychotherapy Group Interactive Psychotherapy Group Interactive [id number] 08/29/19 12 MARIA DEL ROSARIO ANG E Nadja Alcohol and/or drug services; group counseling by a clinician 08/26/19 12 MARIA DEL ROSARIO ANG E DoD Psychotherapy Group Interactive Psychotherapy Group Interactive [id number] 08/26/19 12 MARIA DEL ROSARIO ANG E Nadja Psychiatric Therapy Counseling Family / Guardians Psychiatric Therapy Counseling Family / Guardians [id number] 08/06/19 12 MARIA DEL ROSARIO ANG Medical Nutrition Therapy Initial A e ment And Intervention Each 15 Minutes Medical Nutrition Therapy Initial Assessment And Intervention Each 15 Minutes [id number] 08/05/19 12 GWYN MCDONALD Alcohol and/or drug services; group counseling by a clinician 07/26/19 12 MARIA DEL ROSARIO ANG E DoD Psychotherapy Group Interactive Psychotherapy Group Interactive [id number] 07/26/19 12 MARIA DEL ROSARIO ANG DoD Behavioral health screening to determine eligibility for admi ion to treatment program 06/07/20 11 MARIA DEL ROSARIO ANG DoD Alcohol and/or drug a e ment 06/07/20 11 MARIA DEL ROSARIO ANG Psychiatric Diagnostic Evaluation Comprehensive Examination Psychiatric Diagnostic Evaluation Comprehensive Examination [id number] 06/07/20 11 MARIA DEL ROSARIO ANG Screening Test Of Visual Acuity, Quantitative, Bilateral Screening Test Of Visual Acuity, Quantitative, Bilateral 91701 01/10/20 11 OBI GALLEGOS Visual Chandler Test Extended Examination Visual Chandler Test Extended Examination [id number] 01/10/20 11 YANNI ALVARADO Ophthalmological Prior Patient Start Intermediate Level Care Ophthalmological Prior Patient Start Intermediate Level Care [id number] 01/10/20 11 YANNI ALVARADO Scanning Computerized Ophthalmic Diagnostic Imaging Optic Nerve Scanning Computerized Ophthalmic Diagnostic Imaging Optic Nerve 50216 12/18/19 11 YANNI ALVARADO Anterior Chamber Angles (Gonioscopy) Anterior Chamber Angles (Gonioscopy) 29110 12/18/19 11 YANNI ALVARADO Ophthalmological Prior Patient Start Comprehensive Care Ophthalmological Prior Patient Start Comprehensive Care 11507 12/18/19 11 YANNI ALVARADO Visual Chandler Test Extended Examination Visual Chandler Test Extended Examination [id number] 12/18/19 11 YANNI ALVARADO Computerized Corneal Topography Computerized Corneal Topography 39799 11/30/19 11 YANNI ALVARADO Determination Of Refractive State Determination Of Refractive State 27334 11/30/19 11 YANNI ALVARADO Corneal Pachymetry Both Eyes Corneal Pachymetry Both Eyes 18484 11/30/19 11 YANNI ALVARADO Ophthalmological New Patient Start Comprehensive Care Ophthalmological New Patient Start Comprehensive Care 02190 11/30/19 11 YANNI ALVARADO Destruct Of Benign Lesion By Any Method Second Through 14 11/22/19 11 RONNIE DANIEL Visual Chandler Test Extended Examination Visual Chandler Test Extended Examination [id number] 05/31/20 10 VERÓNICA REYNOLDS Ophthalmological Prior Patient Start Intermediate Level Care Ophthalmological Prior Patient Start Intermediate Level Care [id number] 05/31/20 10 VERÓNICA REYNOLDS Ophthalmological New Patient Start Comprehensive Care Ophthalmological New Patient Start Comprehensive Care 82540 05/28/20 10 VERÓNICA REYNOLDS Determination Of Refractive State Determination Of Refractive State 05363 05/28/20 10 VERÓNICA REYNOLDS Spectacles Services Fitting Monofocal Except For Aphakia Spectacles Services Fitting Monofocal Except For Aphakia 34820 05/28/20 10 VERÓNICA REYNOLDS [facility] Visual Chandler Test Extended Examination Visual Chandler Test Extended Examination [id number] 05/28/20 10 VERÓNICA REYNOLDS [facility] Diagnostic Imaging Ocular Coherence Topography 05/28/20 10 VERÓNICA REYNOLDS [facility] Audiogram (Screening) Audiogram (Screening) [id number] 04/19/20 10 ALLY BARRERA [facility] Audiometry Group Testing Audiometry Group Testing 54596 04/19/20 10 ALLY BARRERA [facility] Ear Protector Attenuation Measurements Ear Protector Attenuation Measurements 26131 04/19/20 10 ALLY BARRERA [facility] Psychiatric Diagnostic Evaluation Comprehensive Examination Psychiatric Diagnostic Evaluation Comprehensive Examination 84268 12/07/19 09 KEITH KELLER [facility] Screening Test Of Visual Acuity, Quantitative, Bilateral Screening Test Of Visual Acuity, Quantitative, Bilateral [id number] 12/01/19 09 PAM CHAUDHARY [facility] Influenza Virus Vaccine Intranasal Live Attenuated 05/02/20 08 SCHMITZMARGARITA RUCKER [facility] Immunization Admin By Intranasal / Oral Route One Vaccine Immunization Admin By Intranasal / Oral Route One Vaccine [id number] 05/02/20 08 [facility] Venipuncture Venipuncture [id number] 05/02/20 08 [facility] Hepatitis B Vaccine (Active) Adult Dosage 08/20/19 08 [facility] Skin Test Anergy Tuberculin Intradermal Skin Test Anergy Tuberculin Intradermal 72961 08/20/19 08 [facility] Anthrax Vaccine, For Subcutaneous Use 08/20/19 08 [facility] Vaccines Vaccines 11621 08/20/19 08 [facility] Immunization Administration By Injection, Each Additional Vaccine 08/20/19 08 [facility] Immunization Administration By Injection, One Vaccine Immunization Administration By Injection, One Vaccine [id number] 08/20/19 08 [facility] Health And Behav Intervention, Each Additional 15 Min Grp (2 Or More) Health And Behav Intervention, Each Additional 15 Min Grp (2 Or More) 07313 07/17/19 08 MEHDI KAMARA [facility] Influenza Split Virus Vaccine 0.5mL Dosage Intramuscular 05/04/20 07 JOHN PHAN [facility] Typhoid Vaccine Vi Capsular Polysaccharide, For Intramus Use Typhoid Vaccine Vi Capsular Polysaccharide, For Intramus Use 57866 05/04/20 [facility] Immun[facility] Administration By Injection, Each Additional Vaccine 05/04/20 [facility] Hepatitis A And Hepatitis B (Intramuscular Use) Adult Dosage Hepatitis A And Hepatitis B (Intramuscular Use) Adult Dosage 80469 05/04/20 [facility] Immunization Administration By Injection, One Vaccine Immunization Administration By Injection, One Vaccine 55941 05/04/20 [facility] Physician Supervised Services Provision Of Educational Supplies Physician Supervised Services Provision Of Educational Supplies [id number] 03/06/20 07 ROXANA ACUNA Destruction Of Flat Warts By Cryosurgery Up To 14 Lesions 02/25/20 07 BUSTER JULIAN Destruction Of Flat Warts By Cryosurgery Up To 14 Lesions 02/12/20 07 KRISTI BEDOYA Destruction Of Flat Warts By Cryosurgery Up To 14 Lesions 02/06/20 07 KRISTI BEDOYA wart rx with liquis nitrogen [facility] Ear mold/insert, not disposable, any type 01/22/20 07 [facility] Ear Protector Attenuation Measurements Ear Protector Attenuation Measurements [id number] 01/22/20 07 [facility] Threshold Audiogram (Pure Tone) Threshold Audiogram (Pure Tone) [id number] 01/22/20 07 [facility] Audiometry Group Testing Audiometry Group Testing 95903 01/22/20 07 [facility] Special Physician Services Analysis Of Computerized Data Special Physician Services Analysis Of Computerized Data [id number] 01/22/20 07 [facility] Physician Supervised Services Provision Of Special Supplies Physician Supervised Services Provision Of Special Supplies [id number] 01/22/20 07 [facility] Physician Supervised Group Educational Services 01/22/20 07 [facility] Destruct Of Premalignant Lesion By Any Method 2nd Through 14 01/17/20 07 BUSTER JULIAN Destruction Of Premalignant Lesion By Any Method One Lesion 01/17/20 07 BUSTER JULIAN Determination Of Refractive State Determination Of Refractive State 99220 12/20/19 07 TAMRA KAUR [facility] Spectacles Services Fitting Monofocal Except For Aphakia Spectacles Services Fitting Monofocal Except For Aphakia 59843 12/20/19 07 TAMRA KAUR Ophthalmological New Patient Start Intermediate Level Care Ophthalmological New Patient Start Intermediate Level Care 81765 12/20/19 07 TAMRA KAUR Social History Combined list of available smoking, tobacco, and other social history from 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 Social History Type Response Date Comment Source Tobacco smoking status [facility]-TOBACCO USER EVERY DAY 03/13/2021 [facility] History of tobacco use MS-TOBACCO USE > 15 LESS THAN 30 YEARS 03/13/2021 [facility] History of tobacco use MS-TOBACCO USER EVERY DAY 03/20/2020 [facility] History of tobacco use [facility]09[facility] History of tobacco use ORYX ADMIT TOBACCO SCREEN YES 03/03/[facility] [place] [facility] SPECIAL[facility] NO 01/21/2019 [facility] History of tobacco use CURRENT SMOKER 01/28/2018 [facility] History of tobacco use V1-PT NOT INTERESTED IN QUIT TOBACCO USE 10/29/2017 [facility] History of tobacco use CURRENT SMOKER 02/03/2017 [facility] History of tobacco use CURRENT SMOKER 08/16/2014 [facility] History of tobacco use V1-PT READY TO QUIT TOBACCO USE 06/07/2013 [facility] History of tobacco use QUIT TOBACCO USE IN PAST YEAR 08/21/2012 [facility] History of tobacco use QUIT TOBACCO USE IN PAST YEAR 07/07/2012 quit a month [facility] This section is an empty social history section. [facility] Plan of Care List of future care activities from Department of 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 Additional future care activities may be listed in the Assessment and Plan section. Date/Time Care Activity Care Activity Detail Facili ty 06/11/2024 AMBULATORY - MEDICINE [facility] [place] [facility] 09/17/2024 [facility] [place] [facility] 05/18/2024 Consult Order [facility] Cons Filling Layer Up's Choice DAVID
--- OUTSIDE RECORDS SUMMARY | 2024-06-11 11:38 | XMS_ITS ---
Author Name [facility] [place] Organization [facility] [place] Address [address] [place] [address] Care Team Providers Care Nipple Threader Name Role Phone MARIA DEL CARMEN REYES Primary Care Provide r Unavailable Selected Encounter This section includes the information on record at [place] for the Encounter. Date/Time Encounter Type Encounter Description Reason Pro vider Source May 12, 2024 12:42 PM Outpatient Encounter ADMIN PAT ACTIVTIES (MASNONCT) IHE Encounter Template Text not used by ME Plan of Treatment: Future Appointments (+ 6 months) and Future Tests (+/- 45 days) The Plan of Treatment section includes future care activities for the patient from all [place] treatmentfacilities. This section includes future appointments and future orders which are active, pending or scheduled. Future Appointments This section includes appointments that were scheduled to occur 6 months from the date of the Encounter, up to a maximum of 20 appointments. The data comes from all [place] treatment facilities. Appointment Date/Time Appointment Type Appointme nt Facility Name Jun 11, 2024 11:30 AM [facility] [place] Sep 17, 2024 01:00 PM [facility] Active, Pending, and Scheduled Orders This section includes a listing of several types of active, pending, and scheduled orders, including clinic medications orders, diagnostic test orders, procedure orders and consult orders; where the start date of the order is 45 days before the date of the Encounter or 45 days after the date of theEncounter. The data comes from all [place] treatment facilities. Test Date/Time Test Type Test Details Facility Name May 18, 2024 11:39 AM Consult Order [facility] Cons Reproductive Surgeon's Jabari LYNN Social History: Smoking Status (Most current) and Tobacco Use (All prior to encounter date) This section includes the most current, and the historical, smoking and tobacco- related health factors from the [place] facility where the Encounter took place. Current Smoking Status This section includes the most current smoking, or tobacco-related health factor, from the [place] facility where the Encounter took place. Date/Time Current Smoking Status Comment [facility] it Jun 09, 2019 03:29 PM CURRENT SMOKER ME C NTRL [facility] Tobacco Use History This section includes a history of the smoking, or tobacco-related health factors, that were collected on or before the date of the Encounter. The data comes from the [place] facility where the Encounter took place. Date/Time Smoking Status/Tobac co Use Comment Facility Jun 09, 2019 03:29 PM CURRENT SMOKER [place] [facility] [place] Mar 03, 2019 03:14 PM ORYX ADMIT TOBACCO SCREEN YES [place] [facility] [place] Mar 03, 2019 03:14 PM ORYX ADMIT TOBACCO USE CIGS GR 5D [place] [facility] [place] Mar 03, 2019 03:14 PM ORYX DAILY TOBACCO SHANK TURNER RECEIVED ME [facility] Mar 03, 2019 03:14 PM ORYX DAILY TOBACCO MEDS REFUSED [place] [facility] [facility] [place] [facility] Mar 03, 2019 09:27 AM VA-TOBACCO USE 5 TO 15 YEARS [place] [facility] [place] [facility] Mar 03, 2019 09:27 AM VA-TOBACCO USE ADVICE [place] [facility] [place] Mar 03, 2019 09:27 AM VA-TOBACCO USE SHANK TURNER NO [place] [facility] [place] [facility] Mar 03, 2019 09:27 AM VA-TOBACCO USE MED NO [place] [facility] [place] Mar 03, 2019 09:27 AM VA-TOBACCO USE WI 30 MIN OF WAKEUP [place] [facility] [place] Mar 03, 2019 09:27 AM [facility]ACCO USER EVERY DAY [facility] Jul 07, 2012 02:47 PM QUIT TOBACCO USE IN PAST YEAR [facility] Encounter Notes: All associated encounter notes This section contains the clinical notes associated to the Encounter. Date/Time Encounter Note(s) Provider Source May 12, 2024 12:43 PM ADMINISTRATIVE NOT E: LOCAL TITLE: CCC: SCHEDULING ADMINISTRATION STANDARD TITLE: ADMINISTRATIVE NOTE DATE OF NOTE: MAY 12, 2024@12:43:01 ENTRY DATE: MAY 12, 2024@12:43:01 AUTHOR: SILVIA MORA EXP COSIGNER: URGENCY: STATUS: COMPLETED CCC: SCHEDULING ADMINISTRATION Has ADDENDA Patient Demographics Patient Name: BECK CIFUENTES Patient Primary Phone: [phone] Patient Primary Address: [address] [place] [id number] Patient : 1985 Patient Age: 39 Caller/Recipient Relation to Patient: Self Administrative Administrative Note Reason: Other Administrative Note Comments: was transferred to to schedule a face to face appointment with PCP within 24 hours. was unable to find an available appointment for Petrolia's Bilateral hand/wrist pain, so will use backup option of Urgent Care. is requesting a call back from PACT Team to follow-up and help assist with his next steps. Petrolia can be reached at: [phone] IMPORTANT: This note was created by [facility] Clinical Contact Center staff. Please do not alert the staff member by adding them as a signer for future communications. Alerts are not monitored by this user. /scot/ SILVIA MORA Signed: 05/12/2024 12:43 Receipt Acknowledged By: 05/18/2024 10: /scot/ ALIDA SPEAR LPN LPN * AWAITING SIGNATURE * LAQUITA ZAMAN 05/18/2024 ADDENDUM STATUS: COMPLETED contacted and reports that he went to Urgent care Was given wrist splints, oral steroids, topical treatment, Ibuprofen. Diagnosis - Carpal Tunnel - bilateral hands [facility] MD in [place] /john SPEAR LPN LPN Signed: 05/18/2024 10:10 SILVIA MORA CN[facility]
--- OUTSIDE RECORDS SUMMARY | 2024-06-11 11:38 | XMS_ITS | Encounter Summary ---
Author Name [facility] [place] [facility] [place] Address [address] [place] [address] Care Team Providers Care Saw Feeder Name Role Phone MARIA DEL CARMEN REYES Primary Care Provide r Unavailable Selected Encounter This section includes the information on record at [place] for the Encounter. Date/Time Encounter Type Encounter Description Reason Provider Source November 17, 2023 11:53 AM Outpatient Encounter TELEPHONE TRIAGE LYNDON UNGER Encounter Template Text not used by [place] Plan of Treatment: Future Appointments (+ 6 months) and Future Tests (+/- 45 days) The Plan of Treatment section includes future care activities for the patient from all [place] treatmentfacilities. This section includes future appointments and future orders which are active, pending or scheduled. Future Appointments This section includes appointments that were scheduled to occur 6 months from the date of the Encounter, up to a maximum of 20 appointments. The data comes from all [place] treatment facilities. Appointment Date/Time Appointment Type Appointme nt Facility Name Dec 11, 2023 09:00 AM AMBULATORY - MEDICINE [facility] Active, Pending, and Scheduled Orders This section includes a listing of several types of active, pending, and scheduled orders, including clinic medications orders, diagnostic test orders, procedure orders and consult orders; where the start date of the order is 45 days before the date of the Encounter or 45 days after the date of theEncounter. The data comes from all [place] treatment facilities. Test Date/Time Test Type Test Details Facility Name Dec 27, 2023 12:00 AM Laboratory - Chemi stry Order SYPHILIS ABS W/RFLX BLOOD (SST-GOLD) SERUM [facility] Dec 27, 2023 12:00 AM Laboratory - Chemi stry Order CT/GC DNA PANEL(IN-HOUSE) URINE [facility] Dec 27, 2023 12:00 AM Laboratory - Chemi stry Order LIPID PANEL FASTING BLOOD (SST-SERUM) [facility] 29, 2024 12:00 AM Laboratory - Chemi stry Order BASIC METABOLIC PANEL (fasting) BLOOD (SST-SERUM) [facility] Dec 27, 2023 12:00 AM Laboratory - Chemi stry Order LIVER FUNCTION BLOOD (SST-SERUM) [facility] 29, 2024 12:00 AM Laboratory - Chemi stry Order CBC AND DIFF (AUTO) BLOOD (LAV-BLOOD) [facility] 29, 2024 12:00 AM Laboratory - Chemi stry Order HEMOGLOBIN A1C PANEL BLOOD (LAV-BLOOD) [facility] 29, 2024 12:00 AM Laboratory - Chemi stry Order HIV 1&2 Ag/Ab SCREEN BLOOD (SST-SERUM) [facility] 29, 2024 12:00 AM Laboratory - Chemi stry Order HERPES SIMPLEX ANTIBODIES 1&2 (IgG) BLOOD (SST-SERUM) [facility] 29, 2024 12:00 AM Laboratory - Chemi stry Order TSH BLOOD (SST-SERUM) [facility] Dec 27, 2023 12:00 AM Laboratory - Chemi stry Order HEPATITIS C ANTIBODY (HCV)-ARC BLOOD (MARBLED-TOP SERUM) [facility] Social History: Smoking Status (Most current) and Tobacco Use (All prior to encounter date) This section includes the most current, and the historical, smoking and tobacco- related health factors from the [place] facility where the Encounter took place. Current Smoking Status This section includes the most current smoking, or tobacco-related health factor, from the [place] facility where the Encounter took place. Date/Time Current Smoking Status Comment [facility] Jun 09, 2019 03:29 PM CURRENT SMOKER [place] C [facility] [place] [facility] Tobacco Use History This section includes a history of the smoking, or tobacco-related health factors, that were collected on or before the date of the Encounter. The data comes from the [place] facility where the Encounter took place. 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 [facility]ED [facility] Mar 03, 2019 03:14 PM ORYX DAILY TOBACCO MEDS [facility]FUSED [facility] Mar 03, 2019 09:27 AM VA-TOBACCO USE 5 TO 15 YEARS [facility] Mar 03, 2019 09:27 AM VA-TOBACCO USE ADVICE [facility] W[facility] Mar 03, 2019 09:27 AM 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 NO [facility] Mar 03, 2019 09:27 AM VA-TOBACCO USE MED NO [facility] Mar 03, 2019 09:27 AM VA-TOBACCO USE WI 30 MIN OF WAKEUP [facility] Mar 03, 2019 09:27 AM VA-TOBACCO USER EVERY DAY [facility] Jul 07, 2012 02:47 PM QUIT TOBACCO USE IN PAST YEAR quit a month ago [facility] Encounter Notes: All associated encounter notes This section contains the clinical notes associated to the Encounter. Date/Time Encounter Note(s) Provider Source November 21, 2023 04:03 PM ADDENDUM: LOCAL TITLE: Addendum STANDARD TITLE: ADDENDUM DATE OF NOTE: NOVEMBER 21, 2023@16:03:43 ENTRY DATE: NOVEMBER 21, 2023@16:03:44 AUTHOR: George REYES COSIGNER: URGENCY: STATUS: COMPLETED Last PCP visit 2020. Could you please call patient and schedule physical within the next 3 to 4 months lab order placed. Thank you /scot/ MARIA DEL CARMEN REYES MD PHYSICIAN Signed: 11/21/2023 16:04 Receipt Acknowledged By: 11/25/2023 09:40 /es/ GERARDO MANUEL CHRISTIANNE === --- Original Document --- 11/17/23 CCC: CLINICAL TRIAGE: Patient Demographics Patient Name: BECK CIFUENTES Patient Primary Address: [address] [place] [address] Patient Primary Phone: [phone] Patient : 1985 Patient Age: 38 Current Location: [address] [place] [address] Call Back Number: Caller/Recipient Relation to Patient: Self Emergency Contact: PATRICK LOO Triage Summary Conducted triage/discussed symptoms Pain Score: 8 (Severe Pain) Utilized the Triage Tool: Yes Chief Complaint: Tongue Pain System WHEN: Within 2 Weeks Nurse's Recommendation / WHEN: Within 8 Hours System WHERE: Clinic Nurse's Recommendation / WHERE: Telephone Visit Patient Disposition Patient/Caregiver agrees to plan of care: Yes Patient WHERE: Telephone Visit Patient WHEN: Within 8 hours Nursing Plan and Disposition Other course(s) of action Generated msg to PACT/Provider Provided guidance for worsening symptoms: *Caller/Patient* advised to call facilities [place] Clinical Contact Center or seek immediate medical attention for new or worsening symptoms Nurse Summary Nurse Summary: [place] reports tongue pain x 3 days approx. along with pertinent positive + negative s/sx detailed at the end of this RN's assessment. reports the pain is currently a 7/8-10. [place] attributes his s/sx to a filling that came out from his left lower tooth, behind his L canine tooth. reports since the filling came out (what he believes to be the filling), his tongue has been hurting, red and sore. Vet requests a referral from PCP to a dentist JAYSHREE. Vet also requests a call back from PACT JAYSHREE today. Vet agrees to go to for further evaluation if he doesn't receive a call back from PACT today. has no additional questions and/or requests at this time. Alerting PACT Team for review and follow up. - Clinical Contact Center Codes Clinic/Location: V1 CWM PHONE CCC RN TXCC Triage Complete Triage Date: 11/17/2023, 11:42 AM Triage Note: Phone Triage 17 Nov 2023 15:38:09 +0000 [facility] Demographics 38 y/o Male Results CC: Tongue Pain Software suggested: Within 2 Weeks Software suggested follow-up location: Clinic, consider [facility] care Values and Measures Duration of CC: 3 Days Positive Responses HPI: intraoral ulcers, white, painful HPI: tongue pain VS: temperature not taken Negative Responses Denies: HPI: buccal mucosal swelling Denies: HPI: cervical lymph node swelling and tenderness Denies: HPI: facial pain, unilateral, episodic Denies: HPI: facial tenderness and swelling, overlying jaw Denies: HPI: intraoral lump, duration longer than 2 weeks Denies: HPI: intraoral pain, moderate to severe Denies: HPI: jaw injury, within past 2 days Denies: HPI: mario-lingual swelling, episodic Denies: HPI: sore throat, moderate to severe Denies: HPI: strawberry tongue Denies: HPI: sublingual swelling, episodic Denies: HPI: tongue swelling, worsening Denies: HPI: tooth pain, moderate to severe Denies: HPI: vomiting Denies: MEDS: chemotherapy Denies: PMH: diabetes Denies: PMH: HIV positive Denies: PSH: organ transplant /scot/ LYNDON UNGER RN REGISTERED NURSE Signed: 11/17/2023 11:54 Receipt Acknowledged By: 11/20/2023 08:57 /scot/ FATOU ROWLAND RN REGISTERED NURSE 11/21/2023 10:32 /es/ ALIDA SPEAR LPN LPN 11/21/2023 16:00 /scot/ MARIA DEL CARMEN REYES MD PHYSICIAN 11/25/2023 ADDENDUM STATUS: UNSIGNED You may not VIEW this UNSIGNED Addendum. George REYES CNTRL [facility] [place] [facility] November 17, 2023 11:53 AM RN PROGRESS NOTE: LOCAL TITLE: CCC: CLINICAL TRIAGE STANDARD TITLE: RN PROGRESS NOTE DATE OF NOTE: NOVEMBER 17, 2023@11:53:42 ENTRY DATE: NOVEMBER 17, 2023@11:53:42 AUTHOR: UNGER,LYNDON EXP COSIGNER: URGENCY: STATUS: COMPLETED CCC: CLINICAL TRIAGE Has ADDENDA Patient Demographics Patient Name: BECK CIFUENTES Patient Primary Address: [address] [place] [address] Patient Primary Phone: [phone] Patient : 1985 Patient Age: 38 Current Location: [address] [place] [address] Call Back Number: Caller/Recipient Relation to Patient: Self Emergency Contact: PATRICK LOO Triage Summary Conducted triage/discussed symptoms Pain Score: 8 (Severe Pain) Utilized the Triage Tool: Yes Chief Complaint: Tongue Pain System WHEN: Within 2 Weeks Nurse's Recommendation / WHEN: Within 8 Hours System WHERE: Clinic Nurse's Recommendation / WHERE: Telephone Visit Patient Disposition Patient/Caregiver agrees to plan of care: Yes Patient WHERE: Telephone Visit Patient WHEN: Within 8 hours Nursing Plan and Disposition Other course(s) of action Generated msg to PACT/Provider Provided guidance for worsening symptoms: *Caller/Patient* advised to call facilities [place] Clinical Contact Center or seek immediate medical attention for new or worsening symptoms Nurse Summary Nurse Summary: [place] reports tongue pain x 3 days approx. along with pertinent positive + negative s/sx detailed at the end of this RN's assessment. [place] reports the pain is currently a 7/8-10. [place] attributes his s/sx to a filling that came out from his left lower tooth, behind his L canine tooth. [place] reports since the filling came out (what he believes to be the filling), his tongue has been hurting, red and sore. Vet requests a referral from PCP to a dentist JAYSHREE. Vet also requests a call back from PACT JAYSHREE today. Vet agrees to go to for further evaluation if he doesn't receive a call back from PACT today. has no additional questions and/or requests at this time. Alerting PACT Team for review and follow up. - Clinical Contact Center Codes Clinic/Location: V1 CWM PHONE CCC RN TXCC Triage Complete Triage Date: 11/17/2023, 11:42 AM Triage Note: Phone Triage 17 Nov 2023 15:38:09 +0000 [facility] Demographics 38 y/o Male Results CC: Tongue Pain Software suggested: Within 2 Weeks Software suggested follow-up location: Clinic, consider virtual care Values and Measures Duration of CC: 3 Days Positive Responses HPI: intraoral ulcers, white, painful HPI: tongue pain VS: temperature not taken Negative Responses Denies: HPI: buccal mucosal swelling Denies: HPI: cervical lymph node swelling and tenderness Denies: HPI: facial pain, unilateral, episodic Denies: HPI: facial tenderness and swelling, overlying jaw Denies: HPI: intraoral lump, duration longer than 2 weeks Denies: HPI: intraoral pain, moderate to severe Denies: HPI: jaw injury, within past 2 days Denies: HPI: mario-lingual swelling, episodic Denies: HPI: sore throat, moderate to severe Denies: HPI: strawberry tongue Denies: HPI: sublingual swelling, episodic Denies: HPI: tongue swelling, worsening Denies: HPI: tooth pain, moderate to severe Denies: HPI: vomiting Denies: MEDS: chemotherapy Denies: PMH: diabetes Denies: PMH: HIV positive Denies: PSH: organ transplant /scot/ LYNDON UNGER RN REGISTERED NURSE Signed: 11/17/2023 11:54 Receipt Acknowledged By: 11/20/2023 08:57 /scot/ FATOU ROWLAND RN REGISTERED NURSE 11/21/2023 10:32 /es/ ALIDA SPEAR LPN LPN 11/21/2023 16:00 /scot/ MARIA DEL CARMEN REYES MD PHYSICIAN 11/21/2023 ADDENDUM STATUS: COMPLETED Last PCP visit 2020. Could you please call patient and schedule physical within the next 3 to 4 months lab order placed. 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 /john FAUST Signed: 11/25/2023 09:40 LYNDON UNGER CNTRL [facility]
--- OUTSIDE RECORDS SUMMARY | 2024-06-11 11:38 | XMS_ITS | Encounter Summary ---
Author Name [facility] [place] Organization [facility] [place] [facility] [place] Address [address] [place] [address] Care Team Providers Care Hides And Skins Colorer Name Role Phone MARIA DEL CARMEN REYES Primary Care Provide r Unavailable Selected Encounter This section includes the information on record at [place] for the Encounter. Date/Time Encounter Type Encounter Description Reason Pro vider Source Dec 10, 2023 03:24 PM Outpatient Encounter TELEPHONE TRIAGE IHE Encounter Template Text not used by [place] Plan of Treatment: Future Appointments (+ 6 months) and Future Tests (+/- 45 days) The Plan of Treatment section includes future care activities for the patient from all [place] treatmentfacilities. This section includes future appointments and future orders which are active, pending or scheduled. Future Appointments This section includes appointments that were scheduled to occur 6 months from the date of the Encounter, up to a maximum of 20 appointments. The data comes from all [place] treatment facilities. Appointment Date/Time Appointment Type Appointme nt Facility Name Dec 11, 2023 09:00 [facility] Active, Pending, and Scheduled Orders This section includes a listing of several types of active, pending, and scheduled orders, including clinic medications orders, diagnostic test orders, procedure orders and consult orders; where the start date of the order is 45 days before the date of the Encounter or 45 days after the date of theEncounter. The data comes from all [place] treatment facilities. Test Date/Time Test Type Test Details Facility Name Dec 27, 2023 12:00 AM Laboratory - Chemi stry Order SYPHILIS ABS W/RFLX BLOOD (SST-GOLD) SERUM [facility] 29, 2024 12:00 AM Laboratory - Chemi stry Order CT/GC DNA PANEL(IN-HOUSE) URINE [facility] Dec 27, 2023 12:00 AM Laboratory - Chemi stry Order BASIC METABOLIC PANEL (fasting) BLOOD (SST-SERUM) [facility] 29, 2024 12:00 AM Laboratory - Chemi stry Order LIPID PANEL FASTING BLOOD (SST-SERUM) [facility] 29, 2024 12:00 AM Laboratory - Chemi stry Order LIVER FUNCTION BLOOD (SST-SERUM) [facility] 29, 2024 12:00 AM Laboratory - Chemi stry Order CBC AND DIFF (AUTO) BLOOD (LAV-BLOOD) [facility] 29, 2024 12:00 AM Laboratory - Chemi stry Order HEMOGLOBIN A1C PANEL BLOOD (LAV-BLOOD) [facility] 29, 2024 12:00 AM Laboratory - Chemi stry Order TSH BLOOD (SST-SERUM) [facility] 29, 2024 12:00 AM Laboratory - Chemi stry Order HIV 1&2 Ag/Ab SCREEN BLOOD (SST-SERUM) [facility] 29, 2024 12:00 AM Laboratory - Chemi stry Order HERPES SIMPLEX ANTIBODIES 1&2 (IgG) BLOOD (SST-SERUM) [facility] 29, 2024 12:00 AM Laboratory - Chemi stry Order HEPATITIS C ANTIBODY (HCV)-ARC BLOOD (MARBLED-TOP SERUM) [facility] Social History: Smoking Status (Most current) and Tobacco Use (All prior to encounter date) This section includes the most current, and the historical, smoking and tobacco- related health factors from the [facility] where the Encounter took place. Current Smoking Status This section includes the most current smoking, or tobacco-related health factor, from the [place] facility where the Encounter took place. Date/Time Current Smoking Status Comment [facility] Jun 09, 2019 03:29 PM CURRENT SMOKER [place] [facility] [place] [facility] Tobacco Use History This section includes a history of the smoking, or tobacco-related health factors, that were collected on or before the date of the Encounter. The data comes from the [place] facility where the Encounter took place. 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 Mar 03, 2019 03:14 PM ORYX DAILY TOBACCO MEDS REFUSED [facility] [place] [facility] Mar 03, 2019 09:27 AM VA-TOBACCO USE 5 TO 15 YEARS [facility] Mar 03, 2019 09:27 AM VA-TOBACCO USE ADVICE [facility] Mar 03, 2019 09:27 AM VA-TOBACCO USE MINE ENGINEERING SUPERVISOR NO [facility] Mar 03, 2019 09:27 AM VA-TOBACCO USE MED NO [facility] Mar 03, 2019 09:27 AM VA-TOBACCO USE WI 30 MIN OF WAKEUP [facility] Mar 03, 2019 09:27 AM VA-TOBACCO USER EVERY DAY [facility] Jul 07, 2012 02:47 PM QUIT TOBACCO USE IN PAST YEAR quit a month ago [facility] Encounter Notes: All associated encounter notes This section contains the clinical notes associated to the Encounter. Date/Time Encounter Note(s) Provider Source Dec 10, 2023 03:24 PM RN PROGRESS NOTE: LOCAL TITLE: CCC: CLINICAL TRIAGE STANDARD TITLE: RN PROGRESS NOTE DATE OF NOTE: DEC 10, 2023@15:24:12 ENTRY DATE: DEC 10, 2023@15:24:12 AUTHOR: MARIA ALEJANDRA DAMON COSIGNER: URGENCY: STATUS: COMPLETED CCC: CLINICAL TRIAGE Has ADDENDA Patient Demographics Patient Name: BECK CIFUENTES Patient Primary [address]: [address] [place] [id number] Patient Primary Phone: [phone] Patient : 1985 Patient Age: 38 Current Location: home Call Back Number: in chart Caller/Recipient Relation to Patient: Self Emergency Contact: PATRICK LOO Triage Summary Conducted triage/discussed symptoms Pain Score: 5 (Moderate to Severe Pain) Utilized the Triage Tool: Yes Chief Complaint: Knee Pain System WHEN: Within 3 Days Nurse's Recommendation / WHEN: Within 3 Days System WHERE: Clinic Nurse's Recommendation / WHERE: Clinic/[facility] Patient Disposition Patient/Caregiver agrees to plan of care: Yes Patient WHERE: Appointment Other - Patient Where Disposition: PCP Patient WHEN: Within 3 days Nursing Plan and Disposition Referred Patient for In-Person Appt Transferred patient to Sched & Admin-Apt Other course(s) of action Generated msg to PACT/Provider Provided guidance for worsening symptoms: *Caller/Patient* advised to call facilities [place] Clinical Contact Center or seek immediate medical attention for new or worsening symptoms Nurse Summary Nurse Summary: The calls complaining of chronic right knee pain worsening since he started working the past 2 days with sharp pain on lateral side when twisting, with kneeling, or walking on uneven surfaces. He also believes he may have carpal tunnel in bilateral hands with whole hand numbness in all fingers that can radiate up arm, but declines pain starting in neck and states it feels colder, but not physically colder, which is worse at night with difficulty grasping items. He also complains of an episode of neck pain about 2-3 weeks ago lasting for about 1 week when he tilted his head back with pain radiating to his throat and clavicle and drinking or swallowing difficulties (none now) and did not seek care. Advised to be assessed within 3 days and he agreed with plan and states he is finally in a place where he can start to reestablish his care at the [place] and mentions he has a few other conditions he would like to discuss once scheduled. Warm transferred for scheduling and if no availability he declined going to an in network urgent care locally. Clinical Contact Center Codes Clinic/Location: V1 CWM PHONE CCC RN TXCC Triage Complete Triage Date: 12/10/2023, 03:08 PM Triage Note: Phone Triage 10 Dec 2023 19:02:51 +0000 [facility] Demographics 38 y/o Male Results CC: Knee Pain Software suggested: Within 3 Days Software suggested follow-up location: Clinic, consider virtual care Values and Measures Duration of CC: 2 Weeks Positive Responses HPI: knee pain, moderate to severe VS: temperature not taken Negative Responses Denies: HPI: knee injury, within past 2 days Denies: HPI: knee pain, radiates from back Denies: HPI: knee pain, severe Denies: HPI: knee pain, worsening Denies: HPI: knee swelling, with knee pain Denies: HPI: leg numbness, new Denies: HPI: leg swelling, localized below the painful knee Denies: HPI: lymph node pain, lymph node swelling, inguinal Denies: HPI: pain, radiation down back of leg Denies: HPI: red streaks, from a spot on the knee Denies: HPI: skin erythema, knee Denies: HPI: skin lump, swollen, painful, over the knee Denies: HPI: skin swelling, knee, worsening Denies: HPI: skin tenderness, knee, worsening Denies: HPI: unable to walk Denies: PMH: clotting disorder Denies: PMH: gout Denies: PMH: rheumatoid arthritis Denies: PSH: knee surgery, within past week /scot/ MARIA ALEJANDRA HUGHES 1 [facility] 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 He states his knee is a bit better today. States he gets a sharp pain once a while. He denies any swelling at this time. [place] was supposed to have appt with PCP today at 9AM but he no showed. [place] states he plans to do sick call in [place] tomorrow and will reschedule PCP appt to follow up later if needed. /scot/ LAQUITA ZAMAN RN REGISTERED NURSE Signed: 12/11/2023 13:18 MARIA ALEJANDRA DAMON CN[facility]L [facility]
--- OUTSIDE RECORDS SUMMARY | 2024-06-11 11:38 | XMS_ITS ---
Author Name [facility] [place] Organization [facility] [place] Address [address] [place] [address] Care Team Providers Care Press Tool Maker Name Role Phone MARIA DEL CARMEN REYES Primary Care Provide r Unavailable Selected Encounter This section includes the information on record at [place] for the Encounter. Date/Time Encounter Type Encounter Description Reason Pro vider Source Dec 10, 2023 03:03 PM Outpatient Encounter ADMIN PAT ACTIVTIES (MASNONCT) IHE Encounter Template Text not used by [place] Plan of Treatment: Future Appointments (+ 6 months) and Future Tests (+/- 45 days) The Plan of Treatment section includes future care activities for the patient from all [place] treatmentfacilities. This section includes future appointments and future orders which are active, pending or scheduled. Future Appointments This section includes appointments that were scheduled to occur 6 months from the date of the Encounter, up to a maximum of 20 appointments. The data comes from all [place] treatment facilities. Appointment Date/Time Appointment Type Appointme nt Facility Name Dec 11, 2023 09:00 AM AM[facility]ULATORY - MEDICINE [facility] Active, Pending, and Scheduled Orders This section includes a listing of several types of active, pending, and scheduled orders, including clinic medications orders, diagnostic test orders, procedure orders and consult orders; where the start date of the order is 45 days before the date of the Encounter or 45 days after the date of theEncounter. The data comes from all [place] treatment facilities. Test Date/Time Test Type Test Details Facility Name Dec 27, 2023 12:00 AM Laboratory - Chemi stry Order SYPHILIS ABS W/RFLX BLOOD (SST-GOLD) SERUM [facility] Dec 27, 2023 12:00 AM Laboratory - Chemi stry Order CT/GC DNA PANEL(IN-HOUSE) URINE [facility] Dec 27, 2023 12:00 AM Laboratory - Chemi stry Order BASIC METABOLIC PANEL (fasting) BLOOD (SST-SERUM) [facility] Dec 27, 2023 12:00 AM Laboratory - Chemi stry Order LIPID PANEL FASTING BLOOD (SST-SERUM) [facility] 29, 2024 12:00 AM Laboratory - Chemi stry Order LIVER FUNCTION BLOOD (SST-SERUM) [facility] Dec 27, 2023 12:00 AM Laboratory - Chemi stry Order CBC AND DIFF (AUTO) BLOOD (LAV-BLOOD) [facility] 29, 2024 12:00 AM Laboratory - Chemi stry Order HEMOGLOBIN A1C PANEL BLOOD (LAV-BLOOD) [facility] 29, 2024 12:00 AM Laboratory - Chemi stry Order TSH BLOOD (SST-SERUM) [facility] Dec 27, 2023 12:00 AM Laboratory - Chemi stry Order HERPES SIMPLEX ANTIBODIES 1&2 (IgG) BLOOD (SST-SERUM) [facility] 29, 2024 12:00 AM Laboratory - Chemi stry Order HIV 1&2 Ag/Ab SCREEN BLOOD (SST-SERUM) [facility] Dec 27, 2023 12:00 AM Laboratory - Chemi stry Order HEPATITIS C ANTIBODY (HCV)-ARC BLOOD (MARBLED-TOP SERUM) [facility] Social History: Smoking Status (Most current) and Tobacco Use (All prior to encounter date) This section includes the most current, and the historical, smoking and tobacco- related health factors from the [place] facility where the Encounter took place. Current Smoking Status This section includes the most current smoking, or tobacco-related health factor, from the [place] facility where the Encounter took place. Date/Time Current Smoking Status Comment Facil ity Jun 09, 2019 03:29 PM CURRENT SMOKER [place] C [facility] Tobacco Use History This section includes a history of the smoking, or tobacco-related health factors, that were collected on or before the date of the Encounter. The data comes from the [place] facility where the Encounter took place. 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 [place] [facility]TR [facility] [place] [facility] Mar 03, 2019 03:14 PM ORYX DAILY TOBACCO MEDS REFUSED [place] [facility] [place] [facility] Mar 03, 2019 09:27 AM VA-TOBACCO USE 5 TO 15 YEARS [place] [facility]TR [facility] [place] [facility] Mar 03, 2019 09:27 AM VA-TOBACCO USE ADVICE [place] [facility] [place] [facility] Mar 03, 2019 09:27 AM VA-TOBACCO USE TABLE GAMES DEALER NO [place] [facility] [place] [facility] Mar 03, 2019 09:27 AM VA-TOBACCO USE MED NO [place] [facility] [place] [facility] Mar 03, 2019 09:27 AM VA-TOBACCO USE WI 30 MIN OF WAKEUP [place] [facility] [place] [facility] Mar 03, 2019 09:27 AM VA-TOBACCO USER EVERY DAY [place] [facility] [place] [facility] Jul 07, 2012 02:47 PM QUIT TOBACCO USE IN PAST YEAR quit a month ago [place] [facility] [place] [facility] Encounter Notes: All associated encounter notes This section contains the clinical notes associated to the Encounter. Date/Time Encounter Note(s) Provider Source Dec 10, 2023 03:03 PM ADMINISTRATIVE NOTE: LOCAL TITLE: CCC: SCHEDULING ADMINISTRATION STANDARD TITLE: ADMINISTRATIVE NOTE DATE OF NOTE: DEC 10, 2023@15:03:53 ENTRY DATE: DEC 10, 2023@15:03:54 AUTHOR: MIKAELA MARTINEZ COSIGNER: URGENCY: STATUS: COMPLETED CCC: SCHEDULING ADMINISTRATION Has ADDENDA Patient Demographics Patient Name: BECK CIFUENTES Patient Primary Phone: [phone] Patient Primary [address]: [address] [place] [id number] Patient : 1985 Patient Age: 38 Current Location: home Call Back Number: in chart Caller/Recipient Relation to Patient: Self Administrative Administrative Note Reason: Other Administrative Note Comments: Vet called for a STD screening he needs to be checked out he states no symptoms but he is starting with a new partner please reach out to the vet /scot/ MIKAELA MARTINEZ Signed: 12/10/2023 15:04 Receipt Acknowledged By: 12/12/2023 08:23 /es/ ALIDA SPEAR LPN LPN 12/11/2023 13:21 /scot/ LAQUITA ZAMAN RN REGISTERED NURSE 12/11/2023 ADDENDUM STATUS: COMPLETED STD screening order already in place. /scot/ LAQUITA ZAMAN RN REGISTERED NURSE Signed: 12/11/2023 13:21 [facility]
== END 2024-06-11 11:43 | disposition home or self-care (01) ==
PROVIDERS: PCP Internal Medicine
DX: R20.0 Anesthesia of skin (principal); R20.2 Paresthesia of skin
CPT/HCPCS: 99203

== ENCOUNTER → 2024-06-11 11:30 | Outpatient (BNVA) | payer OTHER, SELFPAY | PROVIDERS: PCP Internal Medicine | DX: R20.0 Anesthesia of skin (principal); R20.2 Paresthesia of skin | CPT/HCPCS: 99202 ==

== ENCOUNTER 2024-07-15 14:06 | Outpatient (REF) | payer OTHER, SELFPAY ==
--- NOTE | 2024-07-15 14:12 | EMG_ITS ---
Chief complaint: Bilateral hand numbness Reason for referral: Evaluate for Carpal Tunnel Syndrome Referred by: Alex STOVER Procedure done: Bilateral upper extremities NCS/EMG Precautions and/or limitations: None The limb temperature was monitored continuously and remained between 32-36 degrees C during the performance of the NCS. Nerve Conduction Studies Anti Sensory Summary Table ?Stim Site NR Onset (ms) Norm Onset (ms) Peak (ms) Norm Peak (ms) O-P Amp (?V) Norm O-P Amp Site1 Site2 Delta-0 (ms) Dist (cm) Jignesh (m/s) Norm Jignesh (m/s) Left Median Anti Sensory (2nd Digit) Wrist ? 3.7 4.5 <3.6 6.7 >10 Wrist 2nd Digit 3.7 14.0 38 Right Median Anti Sensory (2nd Digit) Wrist NR <3.6 >10 Wrist 2nd Digit 14.0 Right Radial Anti Sensory (Thumb) Forearm ? 1.5 2.3 <3.1 14.4 Forearm Thumb 1.5 0.0 Left Ulnar Anti Sensory (5th Digit) Wrist ? 0.9 2.9 <3.7 16.1 >15.0 Wrist 5th Digit 0.9 14.0 156 Right Ulnar Anti Sensory (5th Digit) Wrist ? 1.0 3.0 <3.7 17.5 >15.0 Wrist 5th Digit 1.0 14.0 140 Motor Summary Table ?Stim Site NR Onset (ms) Norm Onset (ms) O-P Amp (mV) Norm O-P Amp iAmp (mV) Amp (1st) (%) Site1 Site2 Delta-0 (ms) Dist (cm) Jignesh (m/s) Norm Jignesh (m/s) Left Median Motor (Abd Poll Brev) Wrist ? 4.3 <3.9 11.0 >4.5 13.0 100.0 Elbow Wrist 4.2 20.5 49 >45 Elbow ? 8.5 10.7 12.8 97.3 Right Median Motor (Abd Poll Brev) Wrist ? 6.1 <3.9 9.6 >4.5 11.6 100.0 Elbow Wrist 4.5 22.5 50 >45 Elbow ? 10.6 8.9 10.9 92.7 Left Ulnar Motor (Abd Dig Minimi) Wrist ? 2.9 <3.0 6.1 >5 7.8 100.0 B Elbow Wrist 3.7 21.0 57 >45 B Elbow ? 6.6 6.0 7.6 98.4 A Elbow B Elbow 1.9 10.0 53 >45 A Elbow ? 8.5 6.8 9.4 111.5 Right Ulnar Motor (Abd Dig Minimi) Wrist ? 2.9 <3.0 5.1 >5 6.3 100.0 B Elbow Wrist 4.1 22.0 54 >45 B Elbow ? 7.0 5.5 7.2 107.8 A Elbow B Elbow 2.0 10.0 50 >45 A Elbow ? 9.0 5.6 7.3 109.8 EMG ?Side Muscle Nerve Root Ins Act Fibs Psw Amp Dur Poly Recrt Int Pat Comment Right 1stDorInt Ulnar C8-T1 Nml Nml Nml Nml Nml 0 Nml Complete Right FlexCarRad Median C6-7 Nml Nml Nml Nml Nml 0 Nml Complete Right Biceps Musculocut C5-6 Nml Nml Nml Nml Nml 0 Nml Complete Right Triceps Radial C6-7-8 Nml Nml Nml Nml Nml 0 Nml Complete Right Deltoid Axillary C5-6 Nml Nml Nml Nml Nml 0 Nml Complete Left 1stDorInt Ulnar C8-T1 Nml Nml Nml Nml Nml 0 Nml Complete Left FlexCarRad Median C6-7 Nml Nml Nml Nml Nml 0 Nml Complete Left Biceps Musculocut C5-6 Nml Nml Nml Nml Nml 0 Nml Complete Left Triceps Radial C6-7-8 Nml Nml Nml Nml Nml 0 Nml Complete Left Deltoid Axillary C5-6 Nml Nml Nml Nml Nml 0 Nml Complete FINDINGS: Bilateral median motor nerves showed prolonged distal latency, normal amplitude and normal conduction velocity. Right median sensory nerve showed absent response. Left median sensory nerve showed small amplitude and prolonged peak latency. All other nerves tested were within normal. Concentric needle EMG was performed in selected muscles of the upper extremity. Study did not reveal signs of electric abnormalities as shown in the table above. IMPRESSION: 1. This is an abnormal study. 2. There is electrodiagnostic evidence for bilateral moderate-severe median neuropathy at the wrist, consistent with carpal tunnel syndrome. Right worse than left. 3. There is no electrodiagnostic evidence for ulnar neuropathy, brachial plexopathy, or cervical radiculopathy. Thank you for your kind referral. Aisha Mark MD, DAVID Board Certified, [place] [employer] and Rehabilitation (ABPMR) Board Certified, [place] Board of Electrodiagnostic Medicine (ABEM) CODIN [phone] x 2 MTDD
--- OUTSIDE RECORDS SUMMARY | 2024-07-15 18:44 | XMS_ITS | Continuity of Care Document ---
Author Name [facility] Organization [facility] Care Team Providers Care Anesthesiologist Assistant Certified Name Role Phone 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 It does not include entries that were removed or entered in error. Problem Status Onset Date Problem Type Date of Resolution Comments Source Low Back Pain Active 006 Condition Jan 08, 2013 Entered By: BECK TATE Comment: worse on working [facility] Anxiety depression Active Condition [facility] Chronic post-traumatic stress disorder (SNOMED [place] [id number]) Active Condition Jan 08, 2013 Entered By: BECK TATE [facility] Entered By: [facility] Entered By: BOBBI CARL Comment: reviewed [facility] Condylomata Acuminata Active Condition [place] GINGIV/PERIODONT DIS NOS Active Condition [facility] [...] LEYDI GARCIA Comment: Diagnosed and treated by [facility] on 11/29/2016 [facility] Thoracic back pain Active Condition [facility] Tobacco user Active Condition Jun 07, 2013 Entered By: BECK TATE Comment: 0.5ppd [facility] Aftercare Following [...] for: services physical accession Inactive Condition DoD Allergies, Adverse Reactions, Alerts Combined list of [...] Site Reaction Lot Number CVX Code Drug Manager Configuration Status Comments Source FLU,3 YRS (HISTORICAL) 2016 88 complet ed [facility] DTAP, UNSPECIFIED FORMULATION 2014 107 complet ed [facility] FLU,3 YRS (HISTORICAL) 2011 88 complet ed [facility] FLU,3 YRS (HISTORICAL) 2011 88 complet ed Miliatry [facility] tetanus toxoid, reduced diphtheria toxoid, and acellular pertu is vaccine, adsorbed 1 2011 LAQUITA ARREGUIN [id number] [place], [place] [address]) complet ed tetanus toxoid, reduced diphtheri a toxoid, and acellular pertussis vaccine, adsorbed DoD influenza virus vaccine, live, attenuated, for intranasal use 1 2010 [id number] 111 Unknown (UNK) comple t ed influenza virus vaccine, live, attenuate d, for intranasa l use DoD influenza virus vaccine, split virus (incl. purified surface antigen)-reti red CODE 1 2009 [id number] Sanofi Pasteur (PMC) complet ed influenza virus vaccine, split virus (incl. purified surface antigen)- retired CODE DoD anthrax vaccine 6 2009 [id number] Unknown (UNK) comple t ed anthrax vaccine DoD PNEUMOCOCCAL, UNSPECIFIED FORMULATION 2009 109 complet ed . [facility] anthrax vaccine 5 2009 [id number] [employer] [place] ([facility]) complet ed anthrax vaccine DoD typhoid Vi capsular polysaccharid e vaccine 1 2009 [id number] Sanofi Pasteur (PMC) complet ed typhoid Vi capsular polysacch aride vaccine DoD DTAP, UNSPECIFIED FORMULATION 2009 107 complet ed [facility] Novel influenza-H1N 1-09, injectable 1 2008 [id number] [employer]. (NOV) complet ed Novel influenza -T3T2-76, injectabl e DoD influenza virus vaccine, live, attenuated, for intranasal use 1 2008 [id number] 111 [employer]. (MED) complet ed influenza virus vaccine, live, attenuate d, for intranasa l use DoD influenza virus vaccine, live, attenuated, for intranasal use 1 2008 [id number] 111 [employer]. (MED) complet ed influenza virus vaccine, live, attenuate d, for intranasa l use DoD influenza virus vaccine, live, attenuated, for intranasal use 1 2007 [id number] 111 Unknown (UNK) comple t ed influenza virus vaccine, live, attenuate d, for intranasa l use DoD anthrax vaccine 4 2007 [id number] 24 [employer] [place] (MIP) complet ed anthrax vaccine DoD anthrax vaccine 3 2007 [id number] 24 Unknown (UNK) comple t ed anthrax vaccine DoD anthrax vaccine 2 2007 [id number] 24 [employer] [place] (MIP) complet ed anthrax vaccine DoD hepatitis A vaccine, adult dosage 3 2007 [id number] 52 Unknown (UNK) comple t ed hepatitis A vaccine, adult dosage DoD anthrax vaccine 1 2007 ZEB GENTILE [id number] 24 [employer] [place] ([facility]) complet ed anthrax vaccine DoD hepatitis B vaccine, adult dosage 2 2007 ZEB GENTILE [id number] 43 SmithKline (SKB) complet ed hepatitis B vaccine, adult dosage DoD vaccinia (smallpox) vaccine 1 2007 ZEB GENTILE [id number] WyjulianneA[place]arlotte (WAL) complet ed vaccinia (smallpox ) vaccine DoD tuberculin skin test; purified protein derivative solution, intradermal 1 2007 ZEB GENTILE [id number] 96 [place] (PD) complet ed tuberculi n [...] B vaccine 2 2006 [id number] 104 [employer]Kline (SKB) complet ed hepatitis A and hepatitis B vaccine DoD poliovirus vaccine, inactivated 1 2006 [id number] 10 Sanofi Pasteur (PMC) complet ed polioviru [...] diphtheria toxoid conjugate vaccine (MCV4P) 1 2006 [id number] 114 Sanofi Pasteur (PMC) complet ed meningoco ccal polysacch aride (groups A, C, Y and W-135) diphtheri a toxoid conjugate vaccine (MCV4P) DoD tetanus toxoid, reduced diphtheria toxoid, and acellular pertu is vaccine, adsorbed 1 2006 [id number] 115 Sanofi Pasteur (PMC) complet ed [...] Source [employer](PES Optometry -Trainee) OUTPATIENT [id number] YARIEL CAN 12/19 Released w/o Limitations [employer](P ES Optomet ry-Kyree nee) [employer](TMC Ambulator y) OUTPATIENT [id number] TESS STEPHENSON 01/09 Released w/o Limitations [employer](T MC Ambulat ory) [employer](TMC Ambulator y) OUTPATIENT [id number] BUSTER JULIAN 01/16 Released w/o Limitations [employer](T MC Ambulat ory) [employer](IEP Hearing Conservat ion) OUTPATIENT [id number] BASIL THAYER 01/21 Released w/o Limitations [employer](I EP Hearing Conserv ation) [employer](TMC Ambulator y) OUTPATIENT [id number] MARCELA MELÉNDEZ 02/05 Released w/o Limitations [employer](T MC Ambulat ory) [employer](TMC Ambulator y) OUTPATIENT [id number] KOBE SANDHU 02/11 Released w/o Limitations [employer](T MC Ambulat ory) [employer](TMC Ambulator y) OUTPATIENT [id number] F/U ANANT LINDQUIST 02/18 Released w/o Limitations [employer](T MC Ambulat ory) [employer](TMC Ambulator y) OUTPATIENT [id number] BUSTER JULIAN 02/24 Released w/o Limitations [employer](T MC Ambulat ory) BERNADETTE Wharton([facility]) OUTPATIENT [id number] SELF CARE CLASS ROXANA ACUNA 03/05 Released w/o Limitations BERNADETTE Pino([facility]) BERNADETTE Wharton([facility]) OUTPATIENT [id number] PT HERE FOR IMMUN CLINIC ONLY/[facility] VICENTE MAGALLON 04/29 Released w/o Limitations BERNADETTE Pino(Inte rnal Medicin e Clinic) [facility] Primary Care) OUTPATIENT [id number] flu shot ZEB GENTILE 07/13 Released w/o Limitations [facility]) [facility]) OUTPATIENT [id number] INPROC MEHDI KAMARA 07/17 Released w/o Limitations [facility]) [facility](Z VSK Primary Care) OUTPATIENT [id number] PETRA FISHER 08/10 Released w/o Limitations [facility](ZZZ [facility]SK Primary Care) [facility](Z VSK Primary Care) OUTPATIENT [id number] f/u STD PETRA MAYERS 08/18 Released w/o Limitations [facility](Z VSK Primary Care) [facility](Z VSK Primary Care) OUTPATIENT [id number] SAMANTHAAdrianZEB 08/20 Released w/o Limitations [facility](Z [facility]SK Primary Care) [facility] OUTPATIENT [id number] 02/12 Released w/o Limitations Theater Facilit y [facility]SK Pre/Post Deploymen t) OUTPATIENT [id number] CATARINA BYRNE 04/30 Released w/o Limitations [facility]SK Pre/Pos t Deploym ent) [facility] Optometry ) OUTPATIENT [id number] chapter PAM Mcfadden 11/30 Released w/o Limitations [facility]SK Optomet ry) [facility](1AD 2CR 6TH [place]) OUTPATIENT [id number] CATARINA Pardo 12/15 Released w/o Limitations [facility](1AD 2CR 6TH [place] N) [facility](1AD 2CR 6TH S[place]ADRON) OUTPATIENT [id number] infecte d R hand KARISSA LOZANO 03/08 Immediate Referral [facility](1AD 2CR 6TH [place] N) [facility](1AD 2CR 6TH [place]) OUTPATIENT [id number] d/c KARISSA LOZANO 03/09 Released w/o Limitations [facility](1AD 2CR 6TH [place]QU[place] N) [facility] OUTPATIENT [id number] 11/03 Released w/o Limitations Theater Facilit y [facility] OUTPATIENT [id number] 12/15 Released w/o Limitations Theater Facilit y [facility](Hearin g Conservat ion 2) OUTPATIENT [id number] Hearing Exam FREDRICK HASSAN Shilo 04/19 Released w/o Limitations [facility](Hear ing Conserv ation 2) [facility] try Clinic) OUTPATIENT [id number] eye exam GAIL VERÓNICA K 05/28 Released w/o Limitations [facility](Opto metry Clinic) [facility]) OUTPATIENT [id number] visual field24 -2 LOIDA REYNOLDSELLI Hewitt 05/31 Released w/o Limitations [facility](Opto metry Clinic) [facility]) OUTPATIENT [id number] Tobacco Quill Machine Operator MARGARITA Marx 08/06 Released w/o Limitations JINA Weber([facility]) [facility](Aviati on Clinic) OUTPATIENT [id number] REFERRA L TO DERM MORENO OLIVEIRA 09/28 Released w/o Limitations [facility](Avia tion Clinic) [facility](Dermat ology Clinic) OUTPATIENT [id number] Genital warts RONNIE DANIEL 11/21 Released w/o Limitations [facility](Derm atology Clinic) [facility](Ophtha lmology Clinic) OUTPATIENT [id number] PRK Screen YANNI ALVARADO 11/29 Released w/o Limitations [facility](Opht halmolo gy Clinic) [facility](Ophtha lmology Clinic) OUTPATIENT [id number] per Dr. Alvarado v/f 30-2 Fast YANNI ALVARADO 12/17 Released w/o Limitations [facility](Opht halmolo gy Clinic) [facility](Ophtha lmology Clinic) OUTPATIENT [id number] per Dr. Alvarado V/F ...use cyclo RX YANNI ALVARADO 01/09 Released w/o Limitations [facility](Deploy ment) OUTPATIENT [id number] PDHRA/V PRINCESS POLLOCK Tucker 01/09 Released w/o Limitations [facility](Depl oyment) [facility]INA [facility](Aviati on Clinic) OUTPATIENT [id number] Ankle Pain MORENO OLIVEIRA 04/18 Released with Work/Duty Limitations [facility]INA Weber([facility]) OUTPATIENT [id number] MARGARITA FARMER 04/27 Released w/o Limitations JINA Weber([facility]) [facility]INA Weber([employer] JAYSHREE Level 1) OUTPATIENT [id number] EVAL MARIA DEL ROSARIO ANG E 06/05 Released w/o Limitations JINA Weber([facility] M JAYSHREE Level 1) JINA Weber([facility]) OUTPATIENT [id number] YISEL JACOBS 06/10 Released w/o Limitations JINA [facility]) JINA Weber([employer] JAYSHREE Level 1) OUTPATIENT [id number] rtm MARIA DEL ROSARIO ANG E 07/22 Released w/o Limitations JINA Weber([facility]CO M JAYSHREE Level 1) [facility]([employer] JAYSHREE Level 1) OUTPATIENT [id number] grp MARIA DEL ROSARIO ANG E 07/25 Released w/o Limitations JINA Weber([facility] M JAYSHREE Level 1) J[facility] Weber(Clinic al Dietetics ) OUTPATIENT [id number] self referre d weight managem ent GWYN MCDONALD 08/05 Released w/o Limitations JINA Weber(Clin ical Dieteti cs) JINA Weber([facility] JAYSHREE Level 1) OUTPATIENT [id number] [facility] ANG, MARIA DEL ROSARIO E 08/08 Released w/o Limitations [facility] [place] M JAY[place] 1) [facility] [place] [place] Level 1[place] OUTPATIENT [id number] [facility] ANG, MARIA DEL ROSARIO E 08/15 Released w/o Limitations [facility] [place] [place]AY[place] Level 1) [facility] [place] [place] Level 1) OUTPATIENT [id number] [facility] ANGMARIA DEL ROSARIO E 08/26 Released w/o Limitations [facility] [place] Level 1) [facility] [place] [place] Level 1) OUTPATIENT [id number] [facility] ANGMARIA DEL ROSARIO E Released w/o Limitations [facility] [place] 1[place] [facility] [place] [place] [place] Level 1[place] OUTPATIENT [id number] [facility] ANG, MARIA DEL ROSARIO E 09/01 Released w/o Limitations [facility] [place] 1[place] [facility] [place] [place] Level 1[place] OUTPATIENT [id number] [facility] ANG, MARIA DEL ROSARIO E 09/03 Released w/o Limitations [facility] [place] Level 1) [facility] SHRUTHI [place]([facility] JAYSHREE Level 1) OUTPATIENT [id number] [facility] ANGMARIA DEL ROSARIO E 09/15 Released w/o Limitations [facility] [place]AY[place] Level 1) [facility] SHRUTHI [place]([facility] JAYSHREE Level 1) OUTPATIENT [id number] [email or web address] ANG, MARIA DEL ROSARIO E 09/23 Released w/o Limitations [facility] [place] JAYSHREE Level 1) WatsonJINA Richey([facility]) OUTPATIENT [id number] Tobacco cessati on [facility] E 10/06 Released w/o Limitations [facility] JINA Armijo([facility]) WatsonJINA Richey(Aviati on [facility]) OUTPATIENT [id number] LUIS Alonso J 10/13 Released w/o Limitations [facility](Avia tion Clinic) [facility]) OUTPATIENT [id number] eye exam VERÓNICA REYNOLDS 10/15 Released w/o Limitations [facility](Opto metry Clinic) JINA [facility] M01C WTT 3) OUTPATIENT [id number] Chapter 14-12C HORTENSIA CLANCY 11/04 Released w/o Limitations JINA Weber([facility] M01C WTT 3) JINA Weber([facility]) OUTPATIENT [id number] chapter physicVERÓNICA Castellon 11/04 Released w/o Limitations JINA [facility]o metry Clinic) JINA Weber(Hearin g Conservat ion 2) OUTPATIENT [id number] Hearing Exam FREDRICK HASSAN 11/04 Released w/o Limitations JINA [facility](Hear ing Conserv ation 2) [facility] OUTPATIENT [id number] DOC SANTIAGO 11/24 Sick at Home/Quarter s JINA Weber([facility] gen [facility] Clinic) JINA Weber(Aviati on Clinic) OUTPATIENT [id number] part 2 CHAPTER physicMORENO Momin 12/02 Released w/o Limitations JINA Weber(Avia tion Clinic) JINA Weber([facility]iati on Clinic) OUTPATIENT [id number] cyst on head WILIAN MANZANARES Aby 01/08 Released w/o Limitations JINA [facility](Avia tion Clinic) [facility] OUTPATIENT [id number] FREDRICK MARTIN 01/10 Released w/o Limitations JINA Weber([facility]) [facility] OUTPATIENT [id number] DOC SANTIAGO 01/11 Released w/o Limitations JINA Weber([facility]) JINA Weber([facility]) OUTPATIENT [id number] mitali jaimes f/u MORENO OLIVEIRA 01/13 Released with Work/Duty Limitations JINA [facility]) [facility] Encounter [id number] DEBBIE UNGER 11/16 [facility] En[facility] [id number] 12/09 [facility] Encounter [id number] 12/09 [facility] Encounter [id number] 05/12 [facility] En[facility] [id number] 05/12 [facility] Encounter [id number] 07/08 [facility] Encounter [id number] 07/12 [facility] Procedures [...] PROLIFERATIVE LESIONS; UP TO 14 LESIONS 02/12/20 07 [facility] DESTRUCTION (EG, LASER SURGERY, ELECTROSURGERY, CRYOSURGERY, CHEMOSURGERY, SURGICAL CURETTEMENT), OF BENIGN LESIONS OTHER THAN SKIN TAGS OR CUTANEOUS VASCULAR PROLIFERATIVE LESIONS; UP TO 14 LESIONS 02/06/20 07 [facility] PHYS/OTH QUALIFIED HEALTH MILL LABOR SUPERVISOR QUALIFIED,EDUCATION,T RAIN,LICENSURE/REGULA TION (WHEN APPLICABLE) EDUC SER RENDERED TO PATS IN A GRP SETTING (EG,,OBESITY, OR DIABETIC INSTRUCT) 01/22/20 07 [facility] DESTRUCT (EG, LASER SURGERY, ELECTROSURGERY, CRYOSURGERY, CHEMOSURGERY, SURGICAL CURETTEMENT), PREMALIGNANT LESIONS (EG, ACTINIC KERATOSES); 2ND THRU 14 LESIONS, EA (LIST SEP ADDITION CD, 1ST LESION) 01/17/20 07 [facility] DETERMINATION OF REFRACTIVE STATE 12/20/19 07 [facility] INFLUENZA VIRUS VACCINE, TRIVALENT (IIV3), SPLIT VIRUS, 0.5 ML DOSAGE, FOR INTRAMUSCULAR USE 04/29/20 07 [facility] EDUCATIONAL SUPPLIES, SUCH BOOKS, TAPES, AND PAMPHLETS, FOR THE PATIENT'S EDUCATION AT COST TO PHYSICIAN OR OTHER QUALIFIED HEALTH MILL LABOR SUPERVISOR 03/05/20 07 [facility] PSYCHIATRIC EVALUATION OF HOSPITAL RECORDS, OTHER PSYCHIATRIC REPORTS, PSYCHOMETRIC AND/OR PROJECTIVE TESTS, AND OTHER ACCUMULATED DATA FOR MEDICALDIAGNOSTIC PURPOSES 03/26/20 12 [facility] PREPARATION OF REPORT OF PATIENT'S PSYCHIATRIC STATUS, HISTORY, TREATMENT, OR PROGRESS (OTHER THAN FOR LEGAL OR CONSULTATIVE PURPOSES) FOR OTHER INDIVIDUALS, AGENCIES, OR INSURANCE CARRIERS 02/19/20 12 [facility] PSYCHIATRIC DIAGNOSTIC INTERVIEW EXAMINATION 02/13/20 12 [facility] FAMILY PSYCHOTHERAPY (CONJOINT PSYCHOTHERAPY) (WITH PATIENT PRESENT), 50 MINUTES 02/10/20 12 [facility] CRUTCHES UNDERARM, WOOD, ADJUSTABLE OR FIXED, PAIR, WITH PADS, TIPS AND HANDGRIPS 01/12/20 12 [facility] SIMPLE REPAIR OF SUPERFICIAL WOUNDS OF SCALP, NECK, AXILLAE, EXTERNAL GENITALIA, TRUNK AND/OR EXTREMITIES (INCLUDING HANDS AND FEET); 20.1 CM TO 30.0 CM 01/11/20 12 [facility] FAMILY PSYCHOTHERAPY (CONJOINT PSYCHOTHERAPY) (WITH PATIENT PRESENT), 50 MINUTES 01/10/20 12 [facility] FAMILY PSYCHOTHERAPY (CONJOINT PSYCHOTHERAPY) (WITH PATIENT PRESENT), 50 MINUTES 12/30/19 12 [facility] PSYCHIATRIC EVALUATION OF HOSPITAL RECORDS, OTHER PSYCHIATRIC REPORTS, PSYCHOMETRIC AND/OR PROJECTIVE TESTS, AND OTHER ACCUMULATED DATA FOR MEDICALDIAGNOSTIC PURPOSES 11/20/19 12 [facility] PREPARATION OF REPORT OF PATIENT'S PSYCHIATRIC STATUS, HISTORY, TREATMENT, OR PROGRESS (OTHER THAN FOR LEGAL OR CONSULTATIVE PURPOSES) FOR OTHER INDIVIDUALS, AGENCIES, OR INSURANCE CARRIERS 11/07/19 [facility] AUDIOMETRIC TESTING OF GROUPS 11/05/19 [facility] SCREENING TEST OF VISUAL ACUITY, QUANTITATIVE, BILATERAL 11/05/19 12 [facility] INDIVIDUAL PSYCHOTHERAPY, INSIGHT ORIENTED, BEHAVIOR MODIFYING AND/OR SUPPORTIVE, IN AN OFFICE OR OUTPATIENT FACILITY, APPROXIMATELY 45 TO 50 MINUTES [id number] WITH THE PATIENT 10/29/19 [facility] FITTING OF SPECTACLES, EXCEPT FOR APHAKIA; MONOFOCAL 10/16/19 12 [facility] INTERPRETATION OR EXPLANATION OF RESULTS OF PSYCHIATRIC, OTH MEDICAL EXAMS/PROCEDURES, OR OTH ACCUMULATED DATA TO FAMILY OR OTH RESPONSIBLE PERSONS,OR ADVISING THEM HOW TO ASSIST PATIENT 09/24/19 12 [facility] INTERACTIVE GROUP PSYCHOTHERAPY 09/16/19 12 [facility] INTERACTIVE GROUP PSYCHOTHERAPY 09/04/19 12 [facility] ALCOHOL AND/OR DRUG SERVICES; GROUP COUNSELING BY A CLINICIAN 09/02/19 12 [facility] ALCOHOL AND/OR DRUG SERVICES; GROUP COUNSELING BY A CLINICIAN 08/28/19 12 [facility] ALCOHOL AND/OR DRUG SERVICES; GROUP COUNSELING BY A CLINICIAN 08/26/19 12 [facility] ALCOHOL AND/OR DRUG SERVICES; GROUP COUNSELING BY A CLINICIAN 08/07/19 12 [facility] MEDICAL NUTRITION THERAPY; INITIAL ASSESSMENT AND INTERVENTION, INDIVIDUAL, [id number] WITH THE PATIENT, EACH 15 MINUTES 08/05/19 12 [facility] ALCOHOL AND/OR DRUG SERVICES; GROUP COUNSELING BY A CLINICIAN 07/29/19 12 [facility] ALCOHOL AND/OR DRUG SERVICES; GROUP COUNSELING BY A CLINICIAN 07/24/19 12 [facility] INTERPRETATION OR EXPLANATION OF RESULTS OF PSYCHIATRIC, OTH MEDICAL EXAMS/PROCEDURES, OR OTH ACCUMULATED DATA TO FAMILY OR OTH RESPONSIBLE PERSONS,OR ADVISING THEM HOW TO ASSIST PATIENT 07/22/19 12 [facility] SIMPLE REPAIR OF SUPERFICIAL WOUNDS OF SCALP, NECK, AXILLAE, EXTERNAL GENITALIA, TRUNK AND/OR EXTREMITIES (INCLUDING HANDS AND FEET); 2.5 CM OR LESS 06/10/20 11 [facility] BEHAVIORAL HEALTH SCREENING TO DETERMINE ELIGIBILITY FOR ADMISSION TO TREATMENT PROGRAM 06/05/20 11 [facility] ALBUTEROL, INHALATION SOLUTION, FDA-APPROVED FINAL PRODUCT, NON-COMPOUNDED, ADMINISTERED THROUGH DME, UNIT DOSE, 1 MG 04/27/20 11 [facility] SCREENING TEST OF VISUAL ACUITY, QUANTITATIVE, BILATERAL 01/10/20 11 [facility] VISUAL FIELD EXAM,UNILAT/BI,INTERP &REP;EXT EXM(EG,GOLDMANN VIS FLD,AT LEAST 3 ISOP PLOT&STAT DET W/IN RHYS 30DEG/QUANT,AUTO THRSH LINDA,OCT G-1,32/42,HUMP VIS FLD ANAL FULL THRSH 30-2,24-2, OR 30/60-2) 01/10/20 11 [facility] SCANNING COMPUTERIZED OPHTHALMIC DIAGNOSTIC IMAGING, POSTERIOR SEGMENT, WITH INTERPRETATION AND REPORT, UNILATERAL OR BILATERAL; OPTIC NERVE 12/18/19 11 [facility] COMPUTERIZED CORNEAL TOPOGRAPHY, UNILATERAL OR BILATERAL, WITH INTERPRETATION AND REPORT 11/30/19 11 [facility] DESTRUCTION (EG, LASER SURGERY, ELECTROSURGERY, CRYOSURGERY, CHEMOSURGERY, SURGICAL CURETTEMENT), OF BENIGN LESIONS OTHER THAN SKIN TAGS OR CUTANEOUS VASCULAR PROLIFERATIVE LESIONS; UP TO 14 LESIONS 11/22/19 11 [facility] VISUAL FIELD EXAM,UNILAT/BI,INTERP &REP;EXT EXM(EG,GOLDMANN VIS FLD,AT LEAST 3 ISOP PLOT&STAT DET W/IN RHYS 30DEG/QUANT,AUTO THRSH LINDA,OCT G-1,32/42,HUMP VIS FLD ANAL FULL THRSH 30-2,24-2, OR 30/60-2) 05/31/20 10 [facility] VISUAL FIELD EXAM,UNILAT/BI,INTERP &REP;EXT EXM(EG,GOLDMANN VIS FLD,AT LEAST 3 ISOP PLOT&STAT DET W/IN RHYS 30DEG/QUANT,AUTO THRSH LINDA,OCT G-1,32/42,HUMP VIS FLD ANAL FULL THRSH 30-2,24-2, OR 30/60-2) 05/28/20 10 [facility] COLLECTION OF VENOUS BLOOD BY VENIPUNCTURE 04/19/20 10 [facility] SCREENING TEST OF VISUAL ACUITY, QUANTITATIVE, BILATERAL 04/19/20 10 [facility] EAR PROTECTOR ATTENUATION MEASUREMENTS 04/19/20 10 [facility] COLLECTION OF VENOUS BLOOD BY VENIPUNCTURE 07/31/19 10 [facility] SCREENING TEST OF VISUAL ACUITY, QUANTITATIVE, BILATERAL 07/04/19 10 [facility] COLLECTION OF VENOUS BLOOD BY VENIPUNCTURE 07/04/19 10 [facility] PSYCHIATRIC DIAGNOSTIC INTERVIEW EXAMINATION 12/06/19 09 [facility] SCREENING TEST OF VISUAL ACUITY, QUANTITATIVE, BILATERAL 12/01/19 09 [facility] COLLECTION OF VENOUS BLOOD BY VENIPUNCTURE 04/30/20 08 [facility] IMMUNIZATION ADMINISTRATION (INCLUDES PERCUTANEOUS, INTRADERMAL, SUBCUTANEOUS, OR INTRAMUSCULAR INJECTIONS); 1 VACCINE (SINGLE OR COMBINATION VACCINE/TOXOID) 08/20/19 08 [facility] HEALTH AND BEHAVIOR INTERVENTION, EACH 15 MINUTES, [id number]; GROUP (2 OR MORE PATIENTS) 07/08/19 08 [facility] Psychiatric Diagnostic Evaluation Review of Records and Reports Psychiatric Diagnostic Evaluation Review of Records and Reports [id number] 07/14/19 13 CAROLYN ABDALLA [facility] Psychiatric Therapy Preparation of Psychiatric Status Report Psychiatric Therapy Preparation of Psychiatric Status Report [id number] 07/14/19 13 CAROLYN ABDALLA [facility] Psychiatric Diagnostic Evaluation Comprehensive Examination Psychiatric Diagnostic Evaluation Comprehensive Examination [id number] 02/20/20 12 JOHNATHAN WILKERSON [facility] Psychiatric Therapy Preparation of Psychiatric Status Report Psychiatric Therapy Preparation of Psychiatric Status Report [id number] 02/19/20 12 FLORA KILLIAN [facility] [facility] Psychiatric Diagnostic Evaluation Review of Records and Reports Psychiatric Diagnostic Evaluation Review of Records and Reports [id number] 02/19/20 12 FLORA KILLIAN [facility] Clinical Social Work Counseling Marital 02/11/20 12 LULU MYERS [facility] Crutches, underarm, wood, adjustable or fixed, pair, with pads, tips and handgrips 01/12/20 12 DOC SANTIAGO [facility] Clinical Social Work Counseling Marital 01/10/20 12 LULU MYERS [facility] Clinical Social Work Counseling Marital 12/30/19 12 LULU MYERS [facility] Psychiatric Diagnostic Evaluation Review of Records and Reports Psychiatric Diagnostic Evaluation Review of Records and Reports [id number] 11/21/19 12 JENNIFER STRINGER [facility] Psychiatric Therapy Preparation of Psychiatric Status Report Psychiatric Therapy Preparation of Psychiatric Status Report [id number] 11/21/19 12 JENNIFER STRINGER [facility] Psychiatric Therapy Preparation of Psychiatric Status Report Psychiatric Therapy Preparation of Psychiatric Status Report [id number] 11/08/19 12 MADDIE NATION [facility] Psychiatric Diagnostic Evaluation Comprehensive Examination Psychiatric Diagnostic Evaluation Comprehensive Examination [id number] 11/08/19 12 MADDIE NATION [facility] Screening Test Of Visual Acuity, Quantitative, Bilateral Screening Test Of Visual Acuity, Quantitative, Bilateral [id number] 11/05/19 12 VERÓNICA REYNOLDS [facility] Audiogram (Screening) Audiogram (Screening) [id number] 11/05/19 12 FREDRICK HASSAN [facility] Audiometry Group Testing Audiometry Group Testing 13612 11/05/19 12 FREDRICK HASSAN [facility] Clinical Social Work Individual Outpatient Counseling 45 Minutes Clinical Social Work Individual Outpatient Counseling 45 Minutes [id number] 10/29/19 12 JENNIFER STRINGER [facility] Spectacles Services Fitting Monofocal Except For Aphakia Spectacles Services Fitting Monofocal Except For Aphakia 14846 10/16/19 12 VERÓNICA REYNOLDS fit by [facility] Ophthalmological Prior Patient Start Comprehensive Care Ophthalmological Prior Patient Start Comprehensive Care 43272 10/16/19 12 VERÓNICA REYNOLDS [facility] Determination Of Refractive State Determination Of Refractive State 88323 10/16/19 12 VERÓNICA REYNOLDS [facility] Scanning Computerized Ophthalmic Diagnostic Imaging Optic Nerve Scanning Computerized Ophthalmic Diagnostic Imaging Optic Nerve 02284 10/16/19 12 VERÓNICA REYNOLDS [facility] Psychiatric Therapy Counseling Family / Guardians Psychiatric Therapy Counseling Family / Guardians 53103 09/24/19 12 MARIA DEL ROSARIO ANG E DoD Alcohol and/or drug services; group counseling by a clinician 09/16/19 12 MARIA DEL ROSARIO ANG E DoD Psychotherapy Group Interactive Psychotherapy Group Interactive [id number] 09/16/19 12 MARIA DEL ROSARIO ANG E DoD Alcohol and/or drug services; group counseling by a clinician 09/12/19 12 ASHIA HOPE E DoD Psychotherapy Group Interactive Psychotherapy Group Interactive [id number] 09/12/19 12 ASHIA HOPE E Nadja Alcohol and/or drug services; group counseling by a clinician 09/06/19 12 ASHIA HOPE E DoD Psychotherapy Group Interactive Psychotherapy Group Interactive [id number] 09/06/19 12 ASHIA HOPE E Nadja Alcohol and/or drug services; group counseling by a clinician 08/29/19 12 MARIA DEL ROSARIO ANG E Nadja Psychotherapy Group Interactive Psychotherapy Group Interactive [id number] 08/29/19 12 ASHIA HOPE E Nadja Alcohol and/or drug services; group counseling by a clinician 08/26/19 12 ASHIA HOPE E DoD Psychotherapy Group Interactive Psychotherapy Group Interactive [id number] 08/26/19 12 ASHIA HOPE E DoD Psychiatric Therapy Counseling Family / Guardians Psychiatric Therapy Counseling Family / Guardians 27698 08/06/19 12 MARIA DEL ROSARIO ANG E DoD Medical Nutrition Therapy Initial A e ment And Intervention Each 15 Minutes Medical Nutrition Therapy Initial Assessment And Intervention Each 15 Minutes [id number] 08/05/19 12 GWYN MCDONALD Nadja Alcohol and/or drug services; group counseling by a clinician 07/26/19 12 MARIA DEL ROSARIO ANG Psychotherapy Group Interactive Psychotherapy Group Interactive [id number] 07/26/19 12 MARIA DEL ROSARIO ANG Behavioral health screening to determine eligibility for admi ion to treatment program 06/07/20 11 MARIA DEL ROSARIO ANG Alcohol and/or drug a e ment 06/07/20 11 MARIA DEL ROSARIO ANG Psychiatric Diagnostic Evaluation Comprehensive Examination Psychiatric Diagnostic Evaluation Comprehensive Examination [id number] 06/07/20 11 MARIA DEL ROSARIO ANG Screening Test Of Visual Acuity, Quantitative, Bilateral Screening Test Of Visual Acuity, Quantitative, Bilateral 78625 01/10/20 11 OBI GALLEGOS Visual Chandler Test Extended Examination Visual Chandler Test Extended Examination [id number] 01/10/20 11 YANNI ALVARADO Ophthalmological Prior Patient Start Intermediate Level Care Ophthalmological Prior Patient Start Intermediate Level Care 35986 01/10/20 11 YANNI ALVARADO Scanning Computerized Ophthalmic Diagnostic Imaging Optic Nerve Scanning Computerized Ophthalmic Diagnostic Imaging Optic Nerve 66163 12/18/19 11 YANNI ALVARADO Anterior Chamber Angles (Gonioscopy) Anterior Chamber Angles (Gonioscopy) 44346 12/18/19 11 YANNI ALVARADO Ophthalmological Prior Patient Start Comprehensive Care Ophthalmological Prior Patient Start Comprehensive Care 22095 12/18/19 11 YANNI ALVARADO Visual Chandler Test Extended Examination Visual Chandler Test Extended Examination [id number] 12/18/19 11 YANNI ALVARADO Computerized Corneal Topography Computerized Corneal Topography 08371 11/30/19 11 YANNI ALVARADO Determination Of Refractive State Determination Of Refractive State 18610 11/30/19 11 YANNI ALVARADO Corneal Pachymetry Both Eyes Corneal Pachymetry Both Eyes 50833 11/30/19 11 YANNI ALVARADO Ophthalmological New Patient Start Comprehensive Care Ophthalmological New Patient Start Comprehensive Care 00864 11/30/19 11 YANNI ALVARADO Destruct Of Benign Lesion By Any Method Second Through 14 11/22/19 11 RONNIE DANIEL Visual Chandler Test Extended Examination Visual Chandler Test Extended Examination 34574 05/31/20 10 VERÓNICA REYNOLDS Ophthalmological Prior Patient Start Intermediate Level Care Ophthalmological Prior Patient Start Intermediate Level Care 58765 05/31/20 10 VERÓNICA REYNOLDS Ophthalmological New Patient Start Comprehensive Care Ophthalmological New Patient Start Comprehensive Care 63682 05/28/20 10 VERÓNICA REYNOLDS Determination Of Refractive State Determination Of Refractive State 48815 05/28/20 10 VERÓNICA REYNOLDS Spectacles Services Fitting Monofocal Except For Aphakia Spectacles Services Fitting Monofocal Except For Aphakia 89104 05/28/20 10 VERÓNICA REYNOLDS Visual Chandler Test Extended Examination Visual Chandler Test Extended Examination 37178 05/28/20 10 VERÓNICA REYNOLDS Diagnostic Imaging Ocular Coherence Topography 05/28/20 10 VERÓNICA REYNOLDS Audiogram (Screening) Audiogram (Screening) 76607 04/19/20 10 ALLY BARRERA [facility] Audiometry Group Testing Audiometry Group Testing 25084 04/19/20 10 ELCHOALLY [facility] Ear Protector Attenuation Measurements Ear Protector Attenuation Measurements 34234 04/19/20 10 ALLY BARRERA [facility] Psychiatric Diagnostic Evaluation Comprehensive Examination Psychiatric Diagnostic Evaluation Comprehensive Examination [id number] 12/07/19 09 KEITH KELLER [facility] Screening Test Of Visual Acuity, Quantitative, Bilateral Screening Test Of Visual Acuity, Quantitative, Bilateral 33299 12/01/19 09 PAM CHAUDHARY [facility] Influenza Virus Vaccine Intranasal Live Attenuated 05/02/20 08 MARGARITA SCHMITZ [facility] Immunization Admin By Intranasal / Oral Route One Vaccine Immunization Admin By Intranasal / Oral Route One Vaccine 52397 05/02/20 08 MARGARITA SCHMITZ [facility] Venipuncture Venipuncture 24461 05/02/20 08 [facility] Hepatitis B Vaccine (Active) Adult Dosage 08/20/19 08 [facility] Skin Test Anergy Tuberculin Intradermal Skin Test Anergy Tuberculin Intradermal 38616 08/20/19 08 [facility] Anthrax Vaccine, For Subcutaneous Use 08/20/19 08 [facility] Vaccines Vaccines 02742 08/20/19 08 [facility] Immunization Administration By Injection, Each Additional Vaccine 08/20/19 08 [facility] Immunization Administration By Injection, One Vaccine Immunization Administration By Injection, One Vaccine 51344 08/20/19 08 ZEB GENTILE [facility] Health And Behav Intervention, Each Additional 15 Min Grp (2 Or More) Health And Behav Intervention, Each Additional 15 Min Grp (2 Or More) [id number] 07/17/19 08 MEHDI KAMARA [facility] Influenza Split Virus Vaccine 0.5mL Dosage Intramuscular 05/04/[facility] Vi Capsular Polysaccharide, For Intramus Use Typhoid Vaccine Vi Capsular Polysaccharide, For Intramus Use 73743 05/04/20 [facility] Immunization Administration By Injection, Each Additional Vaccine 05/04/[address] [facility] Hepatitis A And Hepatitis B (Intramuscular Use) Adult Dosage Hepatitis A And Hepatitis B (Intramuscular Use) Adult Dosage 04243 05/04/20 [facility] Immun[facility] Administration By Injection, One Vaccine Immunization Administration By Injection, One Vaccine 75870 05/04/[address] [facility] Physician Supervised Services Provision Of Educational Supplies Physician Supervised Services Provision Of Educational Supplies [id number] 03/06/20 07 ROXANA ACUNA [facility] Destruction Of Flat Warts By Cryosurgery Up To 14 Lesions 02/25/20 07 BUSTER JULIAN [facility] Destruction Of Flat Warts By Cryosurgery Up To 14 Lesions 02/12/20 07 KRISTI BEDOYA [facility] Destruction Of Flat Warts By Cryosurgery Up To 14 Lesions 02/06/20 07 KRISTI BEDOYA wart rx with liquis nitrogen [facility] Ear mold/insert, not disposable, any type 01/22/20 07 [facility] Ear Protector Attenuation Measurements Ear Protector Attenuation Measurements [id number] 01/22/20 07 [facility] Threshold Audiogram (Pure Tone) Threshold Audiogram (Pure Tone) 24156 01/22/20 07 [facility] Audiometry Group Testing Audiometry Group Testing [id number] 01/22/20 07 [facility] Special Physician Services Analysis Of Computerized Data Special Physician Services Analysis Of Computerized Data 45753 01/22/20 07 [facility] Physician Supervised Services Provision Of Special Supplies Physician Supervised Services Provision Of Special Supplies [id number] 01/22/20 07 [facility] Physician Supervised Group Educational Services 01/22/20 07 BASIL THAYER [facility] Destruct Of Premalignant Lesion By Any Method 2nd Through 14 01/17/20 07 BUSTER JULIAN Destruction Of Premalignant Lesion By Any Method One Lesion 01/17/20 07 BUSTER JULIAN [facility] Determination Of Refractive State Determination Of Refractive State 66887 12/20/19 07 TAMRA KAUR Spectacles Services Fitting Monofocal Except For Aphakia Spectacles Services Fitting Monofocal Except For Aphakia 74194 12/20/19 07 TAMRA KAUR Ophthalmological New Patient Start Intermediate Level Care Ophthalmological New Patient Start Intermediate Level Care 22584 12/20/19 07 TAMRA KAUR Social History Combined list of available smoking, tobacco, and other social history from 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 Social History Type Response Date Comment Source Tobacco smoking status [place] DE-TOBACCO USER EVERY DAY 03/13/2021 [place] History of tobacco use DE-TOBACCO USE WI 30 MIN OF WAKEUP 03/13/2021 [place] History of tobacco use DE-TOBACCO USER EVERY DAY 03/20/2020 [place] History of tobacco use [facility] History of tobacco use ORYX ADMIT [facility]BACCO [facility]CREEN [facility]03[facility] History of tobacco use DE-TOBACCO USE CONTACT LENS EDGE BUFFER NO 03/03/2019 [facility] History of tobacco use DE-TOBACCO USE MED NO 01/21/2019 [place] History of tobacco use CURRENT SMOKER 01/28/2018 [facility] [place] History of tobacco use V1-PT NOT INTERESTED IN QUIT TOBACCO USE 10/29/2017 [place] History of tobacco use CURRENT SMOKER 02/03/2017 [place] History of tobacco use CURRENT SMOKER 08/16/2014 [place] History of tobacco use V1-PT READY TO QUIT TOBACCO USE 06/07/2013 [place] History of tobacco use QUIT TOBACCO USE IN PAST YEAR 08/21/2012 [place] History of tobacco use QUIT TOBACCO USE IN PAST YEAR 07/07/2012 [facility] This section is an empty social history section. [facility] Plan of Care List of future care activities from Department of 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 Additional future care activities may be listed in the Assessment and Plan section. Date/Time Care Activity Care Activity Detail [facility] 09/10/2024 AMBULATORY - MEDICINE AMBULATORY - MEDICI [facility] 09/17/2024 AMBULATORY - MEDICINE AMBULATORY - MEDICI [facility]
--- OUTSIDE RECORDS SUMMARY | 2024-07-15 18:44 | XMS_ITS ---
Author Name [facility] [place] [facility] [place] Address [address] [place] [address] Care Team Providers Care Showroom Executive Director Name Role Phone MARIA DEL CARMEN REYES Primary Care Provide r Unavailable Selected Encounter This section includes the information on record at [place] for the Encounter. Date/Time Encounter Type Encounter Description Reason Pro vider Source May 12, 2024 12:42 PM Outpatient Encounter ADMIN PAT ACTIVTIES (MASNONCT) IHE Encounter Template Text not used by [place] Plan of Treatment: Future Appointments (+ 6 months) and Future Tests (+/- 45 days) The Plan of Treatment section includes future care activities for the patient from all [place] treatmentfacilities. This section includes future appointments and future orders which are active, pending or scheduled. Future Appointments This section includes appointments that were scheduled to occur 6 months from the date of the Encounter, up to a maximum of 20 appointments. The data comes from all [place] treatment facilities. Appointment Date/Time Appointment Type Appointme nt Facility Name Jun 11, 2024 11:30 AM AM[place]ULATORY [place]ICINE [place] [facility] [place] [facility] Sep 10, 2024 11:00 AM AMBULATORY - MEDICINE [facility] Sep 17, 2024 01:00 PM AMBULATORY - MEDICINE [facility] [place] [facility] Active, Pending, and Scheduled Orders This section includes a listing of several types of active, pending, and scheduled orders, including clinic medications orders, diagnostic test orders, procedure orders and consult orders; where the start date of the order is 45 days before the date of the Encounter or 45 days after the date of theEncounter. The data comes from all [place] treatment facilities. Test Date/Time Test Type Test Details Facility Name May 18, 2024 11:39 AM Consult Order [facility] [employer] Supervisor's [facility] Social History: Smoking Status (Most current) and Tobacco Use (All prior to encounter date) This section includes the most current, and the historical, smoking and tobacco- related health factors from the [place] facility where the Encounter took place. Current Smoking Status This section includes the most current smoking, or tobacco-related health factor, from the [place] facility where the Encounter took place. Date/Time Current Smoking Status Comment [facility] Jun 09, 2019 03:29 PM CURRENT [place]KER [place] [facility] Tobacco Use History This section includes a history of the smoking, or tobacco-related health factors, that were collected on or before the date of the Encounter. The data comes from the [place] facility where the Encounter took place. Date/Time Smoking Status/Tobac co Use Comment [facility] Jun 09, 2019 03:29 PM [place]ER [place] [facility] Mar 03, 2019 03:14 PM ORYX ADMIT TOBACCO SCREEN YES [place] [facility] Mar 03, 2019 03:14 PM ORYX ADMIT TOBACCO USE CIGS GR 5D [place] [facility] Mar 03, 2019 03:14 PM ORYX DAILY TOBACCO APPRENTICE ARCHITECT RECEIVED [place] [facility] Mar 03, 2019 03:14 PM ORYX DAILY TOBACCO MEDS REFUSED [place] [facility] [place] [facility] Mar 03, 2019 09:27 AM VA-TOBACCO USE 5 TO 15 YEARS [place] [facility] [place] [facility] Mar 03, 2019 09:27 AM VA-TOBACCO USE ADVICE [place] [facility] Mar 03, 2019 09:27 AM VA-TOBACCO USE APPRENTICE ARCHITECT NO [place] [facility] [place] [facility] Mar 03, 2019 09:27 AM VA-TOBACCO USE MED NO [place] [facility] Mar 03, 2019 09:27 AM VA-TOBACCO USE WI 30 MIN [facility] WAKEUP [facility] Mar 03, 2019 09:27 AM VA-TOBACCO USER EVERY DAY [facility] Jul 07, 2012 02:47 PM QUIT TOBACCO USE IN PAST YEAR [facility] Encounter Notes: All associated encounter notes [...] Patient Name: BECK CIFUENTES Patient Primary Phone: [phone] Patient Primary Address: [address] [place] [address] Patient : 1985 Patient Age: 39 Caller/Recipient Relation to Patient: Self Administrative Administrative Note Reason: Other Administrative Note Comments: [place] was transferred to to schedule a face to face appointment with PCP within 24 hours. was unable to find an available appointment for [place]'s Bilateral hand/wrist pain, so will use backup option of Urgent Care. is requesting a call back from PACT Team to follow-up and help assist with his next steps. [place] can be reached at: [phone] IMPORTANT: This note was created by [facility] Clinical Contact Center staff. Please do not alert the staff member by adding them as a signer for future communications. Alerts are not monitored by this user. /scot/ SILVIA MORA Signed: 05/12/2024 12:43 Receipt Acknowledged By: 05/18/2024 10:19 /scot/ ALIDA SPEAR LPN LPN 07/05/2024 16:08 /es/ LAQUITA ZAMAN RN REGISTERED NURSE 05/18/2024 ADDENDUM STATUS: COMPLETED [place] contacted and reports that he went to Urgent care Was given wrist splints, oral steroids, topical treatment, Ibuprofen. Diagnosis - Carpal Tunnel - bilateral hands [facility] MD in [place] /scot/ ALIDA SPEAR LPN LPN Signed: 05/18/2024 10:10 [facility]IA [facility]L [facility]
--- OUTSIDE RECORDS SUMMARY | 2024-07-15 18:45 | XMS_ITS ---
Author Name [facility] [place] Organization [facility] [place] [facility] [place] Address [address] [place] [address] Care Team Providers Care Microsoft Dynamics Consultant Name Role Phone MARIA DEL CARMEN REYES Primary Care Provide r Unavailable Selected Encounter This section includes the information on record at [place] for the Encounter. Date/Time Encounter Type Encounter Description Reason Pro vider Source Jul 12, 2024 09:20 AM Outpatient Encounter PRIMARY CARE/MEDICINE IHE Encounter Template Text not used by [place] Plan of Treatment: Future Appointments (+ 6 months) and Future Tests (+/- 45 days) The Plan of Treatment section includes future care activities for the patient from all [place] treatmentfacilities. This section includes future appointments and future orders which are active, pending or scheduled. Future Appointments This section includes appointments that were scheduled to occur 6 months from the date of the Encounter, up to a maximum of 20 appointments. The data comes from all [place] treatment facilities. Appointment Date/Time Appointment Type Appointme nt Facility Name Sep 10, 2024 11:00 AM [facility]UL[facility] Sep 17, 2024 01:00 PM [facility] - MEDICINE [facility] Social History: Smoking Status (Most current) and Tobacco Use (All prior to encounter date) This section includes the most current, and the historical, smoking and tobacco- related health factors from the [place] facility where the Encounter took place. Current Smoking Status This section includes the most current smoking, or tobacco-related health factor, from the [place] facility where the Encounter took place. Date/Time Current Smoking Status Comment [facility] Jun 09, 2019 03:29 PM [facility] Tobacco Use History This section includes a history of the smoking, or tobacco-related health factors, that were collected on or before the date of the Encounter. The data comes from the [place] facility where the Encounter took place. Date/Time Smoking Status/Tobac co Use Comment Facility Jun 09, 2019 03:29 PM [facility] Mar 03, 2019 03:14 PM ORYX ADMIT TOBACCO SCREEN YES [facility] Mar 03, 2019 03:14 PM ORYX ADMIT TOBACCO USE CIGS GR 5D [facility] Mar 03, 2019 03:14 PM ORYX DAILY TOBACCO HAND III CUTTER RECEIVED [facility] Mar 03, 2019 03:14 PM ORYX DAILY TOBACCO MEDS REFUSED [facility] Mar 03, 2019 09:27 AM VA-TOBACCO USE 5 TO 15 YEARS [facility] Mar 03, 2019 09:27 AM VA-TOBACCO USE ADVICE [facility] Mar 03, 2019 09:27 AM VA-TOBACCO USE HAND III CUTTER NO [facility] Mar 03, 2019 09:27 AM VA-TOBACCO USE MED NO [facility] Mar 03, 2019 09:27 AM VA-TOBACCO USE WI 30 MIN OF WAKEUP [facility] Mar 03, 2019 09:27 AM VA-TOBACCO USER EVERY DAY [facility] Jul 07, 2012 02:47 PM QUIT TOBACCO USE IN PAST YEAR quit a month ago [facility] Encounter Notes: All associated encounter notes This section contains the clinical notes associated to the Encounter. Date/Time Encounter Note(s) Provider Source Jul 12, 2024 09:21 AM ADDENDUM: LOCAL TITLE: Addendum STANDARD TITLE: ADDENDUM DATE OF NOTE: JUL 12, 2024@09:21:27 ENTRY DATE: JUL 12, 2024@09:21:29 AUTHOR: DANY SORTO EXP COSIGNER: URGENCY: STATUS: COMPLETED 60 min new pt appt scheduled for Aug@11:00 New pt packet mailed to . Veterans outside PCP is N/A director informatics please assign permanent PACT before pts scheduled appt for RTC/follow up. /es/ DANY SORTO ADVANCED PARTS TECHNICIAN Signed: 07/12/2024 09:22 Receipt Acknowledged By: * AWAITING SIGNATURE * MARGARITA BOATENG 07/14/2024 08:51 /es/ ALIDA SPEAR LPN LPN * AWAITING SIGNATURE * LAQUITA ZAMAN 07/12/2024 09:51 /es/ ROBERTO CARLOS FAUST == --- Original Document --- 07/12/24 PATIENT LETTER (B): [facility] [address] [place] [phone] * BECK CIFUENTES [address] [place] [id number] Date: JUL 12, 2024 Dear Madelaine: Welcome to the [facility] primary care team. Prior to meeting you at your new patient appointment we are requesting some of your past medical history so that we may provide you with the exceptional care you deserve. Please note that it is very helpful to have these documents at least two days prior to your appointment date as the more information we have the better we will be able to meet your needs: * Last History & Physical * Immunization records * Medication list * Diagnosis list * Most recent labs * Diagnostic screens (Colonoscopy, Abdominal Aortic Aneurysm screen, Mammograms, PAPS, etc.) You may either drop the requested records off in person to [address] [place] [address] or you may have them faxed to: [phone] *Also, please complete the enclosed new patient packet and fax it, mail it to us or drop it off at our [place] location: [address] [place] [address] If you have any questions, please do not hesitate to contact the [facility] [place] call center at . We look forward to providing your health care! Sincerely, Office Staff for: [facility] [address] [place] [id number] T [phone] F [phone] Upcoming Appointments: 09/10/2024 11:00 CWM/SO/PACT 5 09/17/2024 13:00 NHM/OPTOMETRY/BURGESS/ APPOINTMENT ABBREVIATION CHURCH (SPOPC OR SO = [address]) (GOPC OR GO = [address]) ([facility] = [facility]) (VVC - Video Call) (Tel-X Telephone Visit) ( - Telehealth) DANY SORTO LAFAYETTE Jul 12, 2024 09:20 AM LETTERS: LOCAL TITLE: PATIENT LETTER (B) STANDARD TITLE: LETTERS DATE OF NOTE: JUL 12, 2024@09:20 ENTRY DATE: JUL 12, 2024@09:20:30 AUTHOR: DANY SORTO EXP COSIGNER: URGENCY: STATUS: COMPLETED PATIENT LETTER (B) Has ADDENDA [facility] [address] [place] [phone] * [phone] * BECK DIEGO CIFUENTES [address] [place], [place] [address] Date: JUL 12, 2024 Dear : Welcome to the [facility] primary care team. Prior to meeting you at your new patient appointment we are requesting some of your past medical history so that we may provide you with the exceptional care you deserve. Please note that it is very helpful to have these documents at least two days prior to your appointment date as the more information we have the better we will be able to meet your needs: * Last History & Physical * Immunization records * Medication list * Diagnosis list * Most recent labs * Diagnostic screens (Colonoscopy, Abdominal Aortic Aneurysm screen, Mammograms, PAPS, etc.) You may either drop the requested records off in person to [address] [place] [address] or you may have them faxed to: [phone] *Also, please complete the enclosed new patient packet and fax it, mail it to us or drop it off at our [place] location: [address] [place] [address] If you have any questions, please do not hesitate to contact the [facility] [place] call center at . We look forward to providing your health care! Sincerely, Office Staff for: [facility] [address] [place] [id number] T [phone] F [phone] Upcoming Appointments: 09/10/2024 11:00 CWM/SO/PACT 5 09/17/2024 13:00 NHM/OPTOMETRY/BURGESS/ APPOINTMENT ABBREVIATION CHURCH (SPOPC OR SO = [address]) (GOPC OR GO = [address]) (NHM = [facility]) (VVC - Video Call) (Tel-X Telephone Visit) (TH - Telehealth) 07/12/2024 ADDENDUM STATUS: COMPLETED 60 min new pt appt scheduled for Aug@11:00 New pt packet mailed to . Veterans outside PCP is N/A director informatics please assign permanent PACT before pts scheduled appt for RTC/follow up. /es/ DANY SORTO ADVANCED PARTS TECHNICIAN Signed: 07/12/2024 09:22 Receipt Acknowledged By: * AWAITING SIGNATURE * MARGARITA BOATENG * AWAITING SIGNATURE * ALIDA SPEAR * AWAITING SIGNATURE * LAQUITA ZAMAN 07/12/2024 09:51 /es/ DANY BLACKWELL
--- OUTSIDE RECORDS SUMMARY | 2024-07-15 18:45 | XMS_ITS ---
Author Name [facility] [place] [facility] [place] Address [address] [place] [address] Care Team Providers Care Rabbit Breeder Name Role Phone MARIA DEL CARMEN REYES Primary Care Provide r Unavailable Selected Encounter This section includes the information on record at [place] for the Encounter. Date/Time Encounter Type Encounter Description Reason Pro vider Source Jul 08, 2024 01:40 PM Outpatient Encounter ADMIN PAT ACTIVTIES (MASNONCT) IHE Encounter Template Text not used by [place] Plan of Treatment: Future Appointments (+ 6 months) and Future Tests (+/- 45 days) The Plan of Treatment section includes future care activities for the patient from all [place] treatmentfacilities. This section includes future appointments and future orders which are active, pending or scheduled. Future Appointments This section includes appointments that were scheduled to occur 6 months from the date of the Encounter, up to a maximum of 20 appointments. The data comes from all [place] treatment facilities. Appointment Date/Time Appointment Type Appointme nt Facility Name Sep 10, 2024 11:00 AM [facility] Sep 17, 2024 01:00 PM [facility] [place] [facility] Social History: Smoking Status (Most current) and Tobacco Use (All prior to encounter date) This section includes the most current, and the historical, smoking and tobacco- related health factors from the [facility] facility where the Encounter took place. Current Smoking Status This section includes the most current smoking, or tobacco-related health factor, from the [place] facility where the Encounter took place. Date/Time Current Smoking Status Comment [facility] Jun 09, 2019 03:29 PM AH-BPR SMOKING DEP LOYMENT YES [facility] Tobacco Use History This section includes a history of the smoking, or tobacco-related health factors, that were collected on or before the date of the Encounter. The data comes from the [place] facility where the Encounter took place. Date/Time Smoking Status/Tobac co Use Comment Facility Jun 09, 2019 03:29 PM [facility] Mar 03, 2019 03:14 PM ORYX ADMIT TOBACCO SCREEN YES [facility] Mar 03, 2019 03:14 PM ORYX ADMIT TOBACCO USE CIGS GR 5D [facility] Mar 03, 2019 03:14 PM ORYX DAILY TOBACCO ASSEMBLER DRY CELL AND BATTERY RECEIVED [facility] Mar 03, 2019 03:14 PM ORYX DAILY TOBACCO MEDS REFUSED [facility] Mar 03, 2019 09:27 AM VA-TOBACCO USE 5 TO 15 YEARS [facility] Mar 03, 2019 09:27 AM VA-[facility]BACCO USE [facility] Mar 03, 2019 09:27 AM VA-TOBACCO USE ASSEMBLER DRY CELL AND BATTERY NO [facility] Mar 03, 2019 09:27 AM VA-TOBACCO USE MED NO [facility] Mar 03, 2019 09:27 AM VA-TOBACCO USE WI 30 MIN OF WAKEUP [facility] Mar 03, 2019 09:27 AM VA-TOBACCO USER EVERY DAY [facility] Jul 07, 2012 02:47 PM QUIT TOBACCO USE IN PAST YEAR quit a month ago [facility] Encounter Notes: All associated encounter notes This section contains the clinical notes associated to the Encounter. Date/Time Encounter Note(s) Provider Source Jul 08, 2024 04:24 PM ADDENDUM: LOCAL TITLE: Addendum STANDARD TITLE: ADDENDUM DATE OF NOTE: JUL 08, 2024@16:24:40 ENTRY DATE: JUL 08, 2024@16:24:41 AUTHOR: SAE LEPE COSIGNER: URGENCY: STATUS: COMPLETED AMSA/RN please call to schedule for a 60 min new patient appointment within 20 days, virtual or face to face to meet new pt scheduling guidelines. Appointment needs to be scheduled on or before Jun PATIENT PHONE - 09/17/2024 13:00 NHM/OPTOMETRY/BURGESS/ /scto/ SAE LEPE INTERN CASING IN LINE SETTER Signed: 07/08/2024 16:25 Receipt Acknowledged By: 07/12/2024 12:44 /es/ DANY SORTO ADVANCED CASING IN LINE SETTER === --- Original Document --- 07/08/24 CCC: SCHEDULING ADMINISTRATION: Patient Demographics Patient Name: BECK CIFUENTES Patient Primary Phone: [phone] Patient Primary Address: [address] [place] [address] Patient : 1985 Patient Age: 39 Caller/Recipient Relation to Patient: Self Caller Name: BECK CIFUENTES Administrative Administrative Note Reason: Other Administrative Note Comments: pt calling to schedule new patient apt in [facility] pt not currently assigned to a PCP IMPORTANT: This note was created by [facility] Clinical Contact Center staff. Please do not alert the staff member by adding them as a signer for future communications. Alerts are not monitored by this user. /es/ MELISSA HUGHES [facility] AMSA Signed: 07/08/2024 13:40 Receipt Acknowledged By: 07/08/2024 15:46 /es/ MAYRA PLASCENCIA MSA INTERN, [facility] 07/08/2024 14:27 /es/ TONY EVANS INTERN AMSA 07/08/2024 16:24 /es/ SAE LEPE INTERN CASING IN LINE SETTER 07/09/2024 ADDENDUM STATUS: COMPLETED SCHEDULED APPT WITH PACT 5 FOR 09/10/2024 FOR 60 MIN, NO OUTSIDE PCP. MAILED OUT NEW PATIENT PACKET. /scot/ DANY SORTO ADVANCED CASING IN LINE SETTER Signed: 07/09/2024 16:25 SAE LEPE [place] [facility] [place] [facility] Jul 08, 2024 01:40 PM ADMINISTRATIVE NOT E: LOCAL TITLE: CCC: SCHEDULING ADMINISTRATION STANDARD TITLE: ADMINISTRATIVE NOTE DATE OF NOTE: JUL 08, 2024@13:40:24 ENTRY DATE: JUL 08, 2024@13:40:24 AUTHOR: MELISSA ANDREWS COSIGNER: URGENCY: STATUS: COMPLETED CCC: SCHEDULING ADMINISTRATION Has ADDENDA Patient Demographics Patient Name: BECK CIFUENTES Patient Primary Phone: [phone] Patient Primary Address: [address] [place] [address] Patient : 1985 Patient Age: 39 Caller/Recipient Relation to Patient: Self Caller Name: BECK CIFUENTES Administrative Administrative Note Reason: Other Administrative Note Comments: pt calling to schedule new patient apt in [facility] pt not currently assigned to a PCP IMPORTANT: This note was created by [facility] Clinical Contact Center staff. Please do not alert the staff member by adding them as a signer for future communications. Alerts are not monitored by this user. /scot/ MELISSA HUGHES [facility] AMSA Signed: 07/08/2024 13:40 Receipt Acknowledged By: 07/08/2024 15:46 /es/ MAYRA PLASCENCIA MSA INTERN, [facility] 07/08/2024 14:27 /es/ TONY EVANS INTERN AMSA 07/08/2024 16:24 /scot/ SAE LEPE INTERN CASING IN LINE SETTER 07/08/2024 ADDENDUM STATUS: COMPLETED AMSA/RN please call to schedule for a 60 min new patient appointment within 20 days, virtual or face to face to meet new pt scheduling guidelines. Appointment needs to be scheduled on or before Jun PATIENT PHONE - 09/17/2024 13:00 NHM/OPTOMETRY/BURGESS/ /scot/ SAE LEPE INTERN CASING IN LINE SETTER Signed: 07/08/2024 16:25 Receipt Acknowledged By: * AWAITING SIGNATURE * DANY SORTO 07/09/2024 ADDENDUM STATUS: COMPLETED SCHEDULED APPT WITH PACT 5 FOR 09/10/2024 FOR 60 MIN, NO OUTSIDE PCP. MAILED OUT NEW PATIENT PACKET. /scot/ DANY SORTO ADVANCED CASING IN LINE SETTER Signed: 07/09/2024 16:25 [facility]
== END 2024-07-15 14:07 | disposition home or self-care (01) ==
LOC: HO.NEURO 14:06
DX: R20.0 Anesthesia of skin (principal); R20.2 Paresthesia of skin
CPT/HCPCS: 95886; 95911

== ENCOUNTER → 2024-07-15 14:12 | Outpatient (BNV) | payer OTHER, SELFPAY | PROVIDERS: Visit Provider Physical Medicine & Rehabilitation | DX: G56.03 Carpal tunnel syndrome, bilateral upper limbs (principal) | CPT/HCPCS: 95886; 95911 ==

== ENCOUNTER 2024-07-30 13:01 | Outpatient (AMB) | payer OTHER, SELFPAY ==
[2024-07-30 13:03] VITALS: BMI 28.9
--- NOTE | 2024-07-30 13:03 | A.OFFVIS_ITS ---
Vital Signs 07/30/24 13:03 Height 5 ft 8 in Weight 190 lb BMI 28.9 Intake Visit Reasons: OV- Bilateral upper extremities NCS/EMG Intake Note: Landon is a 39 year old right hand dominant male who presents today for review of his EMG results, bilateral. Patient reports his symptoms continue to be the same. He is unable to wear braces due to his line of work. He also has a hard time wearing them at night. IMPRESSION: 1. This is an abnormal study. 2. There is electrodiagnostic evidence for bilateral moderate-severe median neuropathy at the wrist, consistent with carpal tunnel syndrome. Right worse than left. 3. There is no electrodiagnostic evidence for ulnar neuropathy, brachial plexopathy, or cervical radiculopathy. Allergies No Known Allergies Allergy (Unverified 07/30/24 13:07) HPI HPI OV- Bilateral upper extremities NCS/EMG: Details: Landon is a 39 year old right hand dominant male who presents today for review of his EMG results, bilateral. Patient reports his symptoms continue to be the same. He is unable to wear braces due to his line of work. He also has a hard time wearing them at night. IMPRESSION: 1. This is an abnormal study. 2. There is electrodiagnostic evidence for bilateral moderate-severe median neuropathy at the wrist, consistent with carpal tunnel syndrome. Right worse than left. 3. There is no electrodiagnostic evidence for ulnar neuropathy, brachial plexopathy, or cervical radiculopathy. 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 Good APB muscle firing and good finger cross. Vascular: Capillary refill brisk. ROM: Patient can make a fist and extend all their digits. Skin: No lacerations or abrasions noted. General: No ecchymosis. No erythema or evidence of infection. Assessment & Plan Assessment & Plan (1) Bilateral carpal tunnel syndrome: Code(s): G56.03 - Carpal tunnel syndrome, bilateral upper limbs Category: Medical Plan 1. Carpal tunnel syndrome, right Intermittent, daily, worse at night I educated the patient about the condition. I discussed both operative and nonoperative treatment options. The patient would like to proceed with surgery. The risks and benefits of operative treatment were discussed with the patient and the patient wishes to proceed with surgery. These risks include, but are not limited to, risk of damage to blood vessels, nerves, tendons, infection, recurrence, incomplete relief of preoperative symptoms, persistent pain, possible need for further surgery, and the risks associated with regional blocks and/or anesthesia. Plan is to take the patient to the operating room at some point in the next few weeks for the following procedures: 1. Right carpal tunnel release under local All of the preoperative paperwork including the consent was discussed today. All of the patient's questions were answered in the clinic today. The patient understands that they will be in contact with our certified surgical assistant to discuss scheduling their procedure. Patient denies diabetes, blood thinners, asthma, heart issues, lung issues, kidney issues, or current smoking. 2. Carpal tunnel syndrome, left Intermittent, daily, worse at night Patient would like to proceed with right-sided surgery 1st Patient is educated that if he is recovering well from right-sided surgery at his postop visit, we can get the left side signed up at that time Patient was amenable to this plan Coding Level of Care Code Est Pt Level 4 (75931) Diagnoses Bilateral carpal tunnel syndrome G56.03
--- OUTSIDE RECORDS SUMMARY | 2024-07-30 13:17 | XMS_ITS ---
Author Name [facility] [place] [facility] [place] Address [address] [place] [address] Care Team Providers Care Purification Operator Helper Name Role Phone MARIA DEL CARMEN REYES Primary Care Provide r Unavailable Selected Encounter This section includes the information on record at [place] for the Encounter. Date/Time Encounter Type Encounter Description Reason Pro vider Source Jul 12, 2024 09:20 AM Outpatient Encounter PRIMARY CARE/MEDICINE [facility] Encounter Template Text not used by [place] Plan of Treatment: Future Appointments (+ 6 months) and Future Tests (+/- 45 days) The Plan of Treatment section includes future care activities for the patient from all [place] treatmentfacilities. This section includes future appointments and future orders which are active, pending or scheduled. Future Appointments This section includes appointments that were scheduled to occur 6 months from the date of the Encounter, up to a maximum of 20 appointments. The data comes from all [place] treatment facilities. Appointment Date/Time Appointment Type Appointme nt Facility Name Sep 10, 2024 11:00 AM [facility] Sep 17, 2024 01:00 PM [facility] MEDICINE [facility] Social History: Smoking Status (Most current) and Tobacco Use (All prior to encounter date) This section includes the most current, and the historical, smoking and tobacco- related health factors from the [facility] facility where the Encounter took place. Current Smoking Status This section includes the most current smoking, or tobacco-related health factor, from the [place] facility where the Encounter took place. Date/Time Current Smoking Status Comment [facility] Jun 09, 2019 03:29 PM [facility] [place] [facility] Tobacco Use History This section includes a history of the smoking, or tobacco-related health factors, that were collected on or before the date of the Encounter. The data comes from the [place] facility where the Encounter took place. Date/Time Smoking Status/Tobac co Use Comment Facility Jun 09, 2019 03:29 PM [facility] Mar 03, 2019 03:14 PM ORYX ADMIT TOBACCO SCREEN YES [facility] Mar 03, 2019 03:14 PM ORYX ADMIT TOBACCO USE CIGS GR 5D [facility] Mar 03, 2019 03:14 PM ORYX DAILY TOBACCO DOUBLE END SEWER RECEIVED [facility] Mar 03, 2019 03:14 PM ORYX DAILY TOBACCO MEDS REFUSED [facility] Mar 03, 2019 09:27 AM VA-TOBACCO USE 5 TO 15 YEARS [facility] Mar 03, 2019 09:27 AM VA-TOBACCO USE ADVICE [facility] Mar 03, 2019 09:27 AM VA-TOBACCO USE DOUBLE END SEWER NO [facility] Mar 03, 2019 09:27 AM VA-TOBACCO USE MED NO [facility] Mar 03, 2019 09:27 AM VA-TOBACCO USE WI 30 MIN OF WAKEUP [facility] Mar 03, 2019 09:27 AM VA-TOBACCO USER EVERY DAY [facility] Jul 07, 2012 02:47 PM QUIT TOBACCO USE IN PAST YEAR quit a month ago [facility] Encounter Notes: All associated [...] . Veterans outside PCP is N/A director process improvement please assign permanent PACT before pts scheduled appt for RTC/follow up. /scot/ DANY SORTO ADVANCED SCOW DERRICK OPERATOR Signed: 07/12/2024 09:22 Receipt Acknowledged By: 07/26/2024 16:00 /es/ MARGARITA BOATENG NP NURSE PRACTITIONER 07/14/2024 08:51 /es/ ALIDA SPEAR, MINK SLICER MINK SLICER 07/30/2024 10:54 /es/ SUSAN FIGUEROA RN REGISTERED NURSE for LAQUITA ZAMAN 07/12/2024 09:51 /es/ ROBERTO CARLOS FAUST == --- Original Document --- 07/12/24 PATIENT LETTER (B): [facility] [address] [place] [id number] [phone] * [phone] * BECK CIFUENTES [address] [place] [id number] Date: JUL 12, 2024 Dear [place]: Welcome to the [facility] primary care team. Prior to meeting [...] the requested records off in person to [address] [place] [address] or you may have them faxed to: [phone] *Also, please complete the enclosed new patient packet and fax it, mail it to us or drop it off at our [place] location: [address] [place] [address] If you have any questions, please do not hesitate to contact the [facility] [place] call center at . We look forward to providing your health care! Sincerely, Office Staff for: Primary [facility] [address] [place] [id number] T [phone] F [phone] Upcoming Appointments: 09/10/2024 11:00 CWM/SO/PACT 5 09/17/2024 13:00 NHM/OPTOMETRY/BURGESS/ APPOINTMENT ABBREVIATION CHURCH (SPOPC OR SO = [address]) (GOPC OR GO = [address]) ([facility] = [facility]) (VVC - Video Call) (Tel-X Telephone Visit) ( - Telehealth) DANY SORTO [place] Jul 12, 2024 09:20 AM LETTERS: LOCAL TITLE: PATIENT LETTER (B) STANDARD TITLE: LETTERS DATE OF NOTE: JUL 12, 2024@09:20 ENTRY DATE: JUL 12, 2024@09:20:30 AUTHOR: DANY SORTO EXP COSIGNER: URGENCY: STATUS: COMPLETED PATIENT LETTER (B) Has ADDENDA [facility] [address] [place] [id number] [phone] * [phone] * BECK CIFUENTES [address] [place] [phone] Date: JUL 12, 2024 Dear : Welcome to the [facility] primary care team. Prior to meeting [...] the requested records off in person to [address] [place] [address] or you may have them faxed to: [phone] *Also, please complete the enclosed new patient packet and fax it, mail it to us or drop it off at our [place] location: [address] [place] [address] If you have any questions, please do not hesitate to contact the Department of 's Affairs call center at . We look forward to providing your health care! Sincerely, Office Staff for: Primary [facility] [address] [place] [id number] T [phone] F [phone] Upcoming Appointments: 09/10/2024 11:00 CWM/SO/PACT 5 09/17/2024 13:00 NHM/OPTOMETRY/BURGESS/ APPOINTMENT ABBREVIATION CHURCH (SPOPC OR SO = [facility]) (GOPC OR GO = [place], [address] [facility]) ([facility] = [facility]) (VVC - Video Call) (Tel-X Telephone Visit) (TH - Telehealth) 07/12/2024 ADDENDUM STATUS: COMPLETED 60 min new pt appt scheduled for Aug@11:00 New pt packet mailed to . Veterans outside PCP is N/A director process improvement please assign permanent PACT before pts scheduled appt for RTC/follow up. /scot/ DANY SORTO ADVANCED SCOW DERRICK OPERATOR Signed: 07/12/2024 09:22 Receipt Acknowledged By: 07/26/2024 16:00 /es/ MARGARITA BOATENG NP NURSE PRACTITIONER 07/14/2024 08:51 /es/ ALIDA SPEAR LPN LPN 07/30/2024 10:54 /es/ SUSAN FIGUEROA RN REGISTERED NURSE for LAQUITA CARRASCOHandyDONNYYOUNG 07/12/2024 09:51 /es/ DANY BLACKWELL
--- OUTSIDE RECORDS SUMMARY | 2024-07-30 13:17 | XMS_ITS | Continuity of Care Document ---
Author Name [facility] Organization [facility] Care Team Providers Care Obstetrician Gynecologist Name Role Phone [facility] Unavailable Unavailable Problems Combined list of problems [...] HCS Chronic post-traumatic stress disorder (SNOMED CT [id number]) Active Condition Jan 08, 2013 Entered By: BECK TATE [facility]: [facility] Entered By: BOBBI CARL Comment: reviewed [facility] Condylomata Acuminata Active Condition CLYDE GINGIV/PERIODONT DIS NOS Active Condition [facility] [...] LEYDI GARCIA Comment: Diagnosed and treated by [facility] 11[facility]29[facility]2016 [facility] [...] Site Reaction Lot Number CVX Code Drug Slitter Operator Status Comments Source FLU,3 YRS (HISTORICAL) 2016 88 complet ed [facility] DTAP, UNSPECIFIED FORMULATION 2014 107 complet ed [facility] FLU,3 YRS (HISTORICAL) 2011 88 complet ed [facility] FLU,3 YRS (HISTORICAL) 2011 88 complet ed Miliatry [facility] tetanus toxoid, reduced diphtheria toxoid, and acellular pertu is vaccine, adsorbed 1 2011 LAQUITA ARREGUIN [id number] [address] [place], [place] [address]U[facility]ristus [facility] ([facility]) complet ed tetanus toxoid, reduced diphtheri a toxoid, and acellular pertussis vaccine, adsorbed DoD influenza virus vaccine, live, attenuated, for intranasal use 1 2010 [id number] 111 Unknown (UNK) comple t ed influenza virus vaccine, live, attenuate d, for intranasa l use DoD influenza virus vaccine, split virus (incl. purified surface antigen)-reti red CODE 1 2009 [id number] Sanofi Pasteur (PMC) complet ed influenza virus vaccine, split virus (incl. purified surface antigen)- retired CODE DoD anthrax vaccine 6 2009 [id number] Unknown (UNK) comple t ed anthrax vaccine DoD PNEUMOCOCCAL, UNSPECIFIED FORMULATION 2009 109 complet ed . [facility] anthrax vaccine 5 2009 [id number] [employer] [place] ([facility]) complet ed anthrax vaccine DoD typhoid Vi capsular polysaccharid e vaccine 1 2009 [id number] Sanofi Pasteur (PMC) complet ed typhoid Vi capsular polysacch aride vaccine DoD DTAP, UNSPECIFIED FORMULATION 2009 107 complet ed [facility] Novel influenza-H1N 1-09, injectable 1 2008 [id number] 127 [employer]. (NOV) complet ed Novel influenza -O1P2-34, injectabl e DoD influenza virus vaccine, live, attenuated, for intranasal use 1 2008 [id number] 111 [place]. (MED) complet ed influenza virus vaccine, live, attenuate d, for intranasa l use DoD influenza virus vaccine, live, attenuated, for intranasal use 1 2008 [id number] 111 [place]. (MED) complet ed influenza virus vaccine, live, attenuate d, for intranasa l use DoD influenza virus vaccine, live, attenuated, for intranasal use 1 2007 [id number] 111 Unknown (UNK) comple t ed influenza virus vaccine, live, attenuate d, for intranasa l use DoD anthrax vaccine 4 2007 [id number] 24 [employer] [place] (MIP) complet ed anthrax vaccine DoD anthrax vaccine 3 2007 [id number] 24 Unknown (UNK) comple t ed anthrax vaccine DoD anthrax vaccine 2 2007 [id number] 24 [employer] [place] (MIP) complet ed anthrax vaccine DoD hepatitis A vaccine, adult dosage 3 2007 [id number] 52 Unknown (UNK) comple t ed hepatitis A vaccine, adult dosage DoD anthrax vaccine 1 2007 ZEB GENTILE [id number] 24 [employer] [place] ([facility]) complet ed anthrax vaccine DoD hepatitis B vaccine, adult dosage 2 2007 ZEB GENTILE [id number] 43 SmithKline (SKB) complet ed hepatitis B vaccine, adult dosage DoD vaccinia (smallpox) vaccine 1 2007 ZEB GENTILE [id number] [place] (WAL) complet ed vaccinia (smallpox ) vaccine DoD tuberculin skin test; purified protein derivative solution, intradermal 1 2007 ZEB GENTILE [id number] 96 [place] (PD) complet ed tuberculi n [...] B vaccine 2 2006 [id number] 104 [employer] (SKB) complet ed hepatitis A and hepatitis B vaccine DoD poliovirus vaccine, inactivated 1 2006 [id number] 10 Sanofi Pasteur (PMC) complet ed polioviru [...] diphtheria toxoid conjugate vaccine (MCV4P) 1 2006 [id number] 114 Sanofi Pasteur (PMC) complet ed meningoco ccal polysacch aride (groups A, C, Y and W-135) diphtheri a toxoid conjugate vaccine (MCV4P) DoD tetanus toxoid, reduced diphtheria toxoid, and acellular pertu is vaccine, adsorbed 1 2006 [id number] 115 Sanofi Pasteur (PMC) complet ed [...] Source [employer](PES Optometry -Trainee) OUTPATIENT [id number] YARIEL CAN 12/19 Released w/o Limitations [employer](P ES Optomet ry-Kyree nee) [employer](TMC Ambulator y) OUTPATIENT [id number] TESS STEPHENSON 01/09 Released w/o Limitations [employer](T MC Ambulat ory) [employer](TMC Ambulator y) OUTPATIENT [id number] BUSTER JULIAN 01/16 Released w/o Limitations [employer](T MC Ambulat ory) [employer](IEP Hearing Conservat ion) OUTPATIENT [id number] BASIL THAYER 01/21 Released w/o Limitations [employer](I EP Hearing Conserv ation) [employer](TMC Ambulator y) OUTPATIENT [id number] MARCELA MELÉNDEZ 02/05 Released w/o Limitations [employer](T MC Ambulat ory) [employer](TMC Ambulator y) OUTPATIENT [id number] KOBE SANDHU 02/11 Released w/o Limitations [employer](T MC Ambulat ory) [employer](TMC Ambulator y) OUTPATIENT [id number] F/U ANANT LINDQUIST 02/18 Released w/o Limitations [employer](T MC Ambulat ory) [employer](TMC Ambulator y) OUTPATIENT [id number] BUSTER JULIAN 02/24 Released w/o Limitations [employer](T MC Ambulat ory) BERNADETTE Wharton([facility]) OUTPATIENT [id number] SELF CARE CLASS ROXANA ACUNA 03/05 Released w/o Limitations BERNA[facility]TE Pino([facility]) BERNADETTE Wharton([facility]) OUTPATIENT [id number] PT HERE FOR IMMUN CLINIC ONLY/IM [facility] VICENTE MAGALLON 04/29 Released w/o Limitations BERNADETTE Pino(Inte rnal Medicin e Clinic) [facility] [facility] Primary Care) OUTPATIENT [id number] flu shot ZEB GENTILE 07/13 Released w/o Limitations [facility] Primary Care) [facility]) OUTPATIENT [id number] INPROC MEHDI KAMARA 07/17 Released w/o Limitations [facility] VSK [facility]) [facility](Z VSK Primary Care) OUTPATIENT [id number] PETRA FISHER 08/10 Released w/o Limitations [facility](ZZZ VSK Primary Care) [facility](Z VSK Primary Care) OUTPATIENT [id number] f/u STD PETRA MAYERS 08/18 Released w/o Limitations [facility](Z VSK Primary Care) [facility](Z VSK Primary Care) OUTPATIENT [id number] SAMANTHAAdrianZEB 08/20 Released w/o Limitations [facility](Z VSK Primary Care) Theater Facility OUTPATIENT [id number] 02/12 Released w/o Limitations Theater Facilit y [facility]SK Pre/Post Deploymen t) OUTPATIENT [id number] CATARINA BYRNE 04/30 Released w/o Limitations [facility]SK Pre/Pos t Deploym ent) [facility] Optometry ) OUTPATIENT [id number] chapter PAM Mcfadden 11/30 Released w/o Limitations [facility](VSK Optomet ry) [facility](1AD 2CR 6TH [place]) OUTPATIENT [id number] CATARINA Pardo 12/15 Released w/o Limitations [facility](1AD 2CR 6TH [place] N) [facility](1AD 2CR 6TH [place]) OUTPATIENT [id number] infecte d R hand KARISSA LOZANO 03/08 Immediate Referral [facility](1AD 2CR 6TH [place] N) [facility](1AD 2CR 6TH [place]) OUTPATIENT [id number] d/c KARISSA LOZANO 03/09 Released w/o Limitations [facility](1AD 2CR 6TH [place] N) Theater [facility] OUTPATIENT [id number] 11/03 Released w/o Limitations Theater Facilit y [facility] OUTPATIENT [id number] 12/15 Released w/o Limitations Theater Facilit y [facility](Hearin g Conservat ion 2) OUTPATIENT [id number] Hearing Exam FREDRICK HASSAN Shilo 04/19 Released w/o Limitations [facility](Hear ing Conserv ation 2) [facility] try [facility]) OUTPATIENT [id number] eye exam GAIL VERÓNICA K 05/28 Released w/o Limitations [facility]o metry Clinic) [facility]) OUTPATIENT [id number] visual field24 -2 LOIDA REYNOLDSELLI Hewitt 05/31 Released w/o Limitations [facility] metry Clinic) [facility]INA Weber([facility]) OUTPATIENT [id number] Tobacco Director Of Land MARGARITA Marx 08/06 Released w/o Limitations [facility]) [facility](Aviati on Clinic) OUTPATIENT [id number] REFERRA L TO DERM MORENO OLIVEIRA 09/28 Released w/o Limitations [facility](Avia tion Clinic) [facility](Dermat ology Clinic) OUTPATIENT [id number] Genital warts RONNIE DANIEL 11/21 Released w/o Limitations [facility](Derm atology Clinic) [facility](Ophtha lmology Clinic) OUTPATIENT [id number] PRK Screen YANNI ALVARADO 11/29 Released w/o Limitations [facility](Opht halmolo gy Clinic) [facility](Ophtha lmology Clinic) OUTPATIENT [id number] per Dr. Alvarado v/f 30-2 Fast YANNI ALVARADO 12/17 Released w/o Limitations [facility](Opht halmolo gy Clinic) [facility](Ophtha lmology Clinic) OUTPATIENT [id number] per Dr. Alvarado V/F ...use cyclo RX YANNI ALVARADO 01/09 Released w/o Limitations [facility](Deploy ment) OUTPATIENT [id number] PDHRA/V PRINCESS POLLOCK Tucker 01/09 Released w/o Limitations [facility](Depl oyment) [facility](Aviati on Clinic) OUTPATIENT [id number] Ankle Pain MORENO OLIVEIRA 04/18 Released with Work/Duty Limitations [facility]) OUTPATIENT [id number] MARGARITA FARMER 04/27 Released w/o Limitations [facility]) [facility]([employer] JAYSHREE Level 1) OUTPATIENT [id number] EVAL MARIA DEL ROSARIO ANG E 06/05 Released w/o Limitations JINA Weber([facility] M JAYSHREE Level 1) [facility]) OUTPATIENT [id number] YISEL JACOBS 06/10 Released w/o Limitations [facility]) [facility]([employer] JAYSHREE Level 1) OUTPATIENT [id number] rtm MARIA DEL ROSARIO ANG E 07/22 Released w/o Limitations [facility]CO M JAYSHREE Level 1) [facility]([employer] JAYSHREE Level 1) OUTPATIENT [id number] grp MARIA DEL ROSARIO ANG E 07/25 Released w/o Limitations J[facility] M JAYSHREE Level 1) [facility](Clinic al Dietetics ) OUTPATIENT [id number] self referre d weight managem ent GWYN MCDONALD 08/05 Released w/o Limitations JINA [facility](Clin ical Dieteti cs) JINA Weber([facility] JAYSHREE Level 1) OUTPATIENT [id number] [facility] ANG, MARIA DEL ROSARIO E 08/08 Released w/o Limitations [facility] [place]IM[place] M JAYSHREE Level 1) [facility] [place] [place] Level 1) OUTPATIENT [id number] [facility] ANG, MARIA DEL ROSARIO E 08/15 Released w/o Limitations [facility] [place]AY[place] Level 1) [facility] [place] [place] Level 1) OUTPATIENT [id number] [facility] ANGMARIA DEL ROSARIO E 08/26 Released w/o Limitations [facility] [place]AY[place] Level 1) [facility] [place] [place] Level 1) OUTPATIENT [id number] [facility] ANGMARIA DEL ROSARIO E Released w/o Limitations [facility] [place]AY[place] Level 1) [facility] [place] [place] Level 1[place] OUTPATIENT [id number] [facility] ANG, MARIA DEL ROSARIO E 09/01 Released w/o Limitations [facility] [place] Level 1) [facility] [place] [place] Level 1) OUTPATIENT [id number] [facility] ANG, MARIA DEL ROSARIO E 09/03 Released w/o Limitations [facility] [place]AY[place] Level 1) [facility] [place]([facility] JAYSHREE Level 1) OUTPATIENT [id number] [facility] ANGMARIA DEL ROSARIO E 09/15 Released w/o Limitations [facility] [place] JAYSHREE Level 1) [facility] [place](IM[facility] JAYSHREE Level 1) OUTPATIENT [id number] [facility] ANG, MARIA DEL ROSARIO E 09/23 Released w/o Limitations [facility] [place] M JAYSHREE Level 1) WatsonJINA Richey([facility]) OUTPATIENT [id number] Tobacco cessati on [facility] E 10/06 Released w/o Limitations [facility] J[facility] Armijo([facility]) WatsonJINA Richey(Aviati on [facility]) OUTPATIENT [id number] LUIS Alonso J 10/13 Released w/o Limitations [facility](Avia tion Clinic) [facility]) OUTPATIENT [id number] eye exam VERÓNICA REYNOLDS 10/15 Released w/o Limitations [facility]o metry Clinic) [facility] M01C WTT 3) OUTPATIENT [id number] Chapter 14-12C HORTENSIA CLANCY 11/04 Released w/o Limitations JINA [facility] M01C WTT 3) J[facility]) OUTPATIENT [id number] chapter physicVERÓNICA Castellon 11/04 Released w/o Limitations [facility]) J[facility] Weber(Hearin g Conservat ion 2) OUTPATIENT [id number] Hearing Exam FREDRICK HASSAN 11/04 Released w/o Limitations J[facility](Hear ing Conserv ation 2) [facility] OUTPATIENT [id number] DOC SANTIAGO 11/24 Sick at Home/Quarter s JINA Weber([facility]) JINA Weber(Aviati on Clinic) OUTPATIENT [id number] part 2 CHAPTER physicMORENO Momin 12/02 Released w/o Limitations JINA Weber([facility]ia tion Clinic) [facility] on Clinic) OUTPATIENT [id number] cyst on head WILIAN MANZANARES Aby 01/08 Released w/o Limitations [facility]ia [facility]ion Clinic) [facility] OUTPATIENT [id number] FREDRICK MARTIN 01/10 Released w/o Limitations JINA Weber([facility]) [facility] OUTPATIENT [id number] DOC SANTIAGO 01/11 Released w/o Limitations JINA Weber([facility]) JINA Weber([facility]) OUTPATIENT [id number] mitali jaimes f/u MORENO OLIVEIRA 01/13 Released with Work/Duty Limitations JINA Weber([facility]) [facility] Encounter [id number] DEBBIE UNGER 11/16 [facility] En[facility] [id number] 12/09 [facility] En[facility] [id number] 12/09 [facility] Encounter [id number] 05/12 [facility] En[facility] [id number] 05/12 [facility] En[facility] [id number] 07/08 [facility] En[facility] [id number] 07/12 [facility] Procedures Combined list of: 1) Procedures from Department of Veterans Affairs facilities going back up to thelast 18 months, not all VA non-surgical procedures are included; 2) All procedures from the Department of Defense facilities. Procedure Procedure Type Code Date Perfomer Comments Sourc e INFLUENZA VIRUS VACCINE, TRIVALENT (IIV3), SPLIT VIRUS, 0.5 ML DOSAGE, FOR INTRAMUSCULAR USE 04/29/20 [facility] EDUCATIONAL SUPPLIES, SUCH BOOKS, TAPES, AND PAMPHLETS, FOR THE PATIENT'S EDUCATION AT COST TO PHYSICIAN OR OTHER QUALIFIED HEALTH HYDRO PNEUMATIC TESTER 03/05/20 07 [facility] DESTRUCTION OF LESION(S), PENIS (EG, CONDYLOMA, PAPILLOMA, MOLLUSCUM CONTAGIOSUM, HERPETIC VESICLE), SIMPLE; CRYOSURGERY 02/25/20 07 [facility] DESTRUCTION (EG, LASER SURGERY, ELECTROSURGERY, CRYOSURGERY, CHEMOSURGERY, SURGICAL CURETTEMENT), OF BENIGN LESIONS OTHER THAN SKIN TAGS OR CUTANEOUS VASCULAR PROLIFERATIVE LESIONS; UP TO 14 LESIONS 02/12/20 07 [facility]D DESTRUCTION (EG, LASER SURGERY, ELECTROSURGERY, CRYOSURGERY, CHEMOSURGERY, SURGICAL CURETTEMENT), OF BENIGN LESIONS OTHER THAN SKIN TAGS OR CUTANEOUS VASCULAR PROLIFERATIVE LESIONS; UP TO 14 LESIONS 02/06/20 07 [facility] PHYS/OTH QUALIFIED HEALTH HYDRO PNEUMATIC TESTER QUALIFIED,EDUCATION,T RAIN,LICENSURE/REGULA TION (WHEN APPLICABLE) EDUC SER RENDERED TO PATS IN A GRP SETTING (EG,,OBESITY, OR DIABETIC INSTRUCT) 01/22/20 07 [facility] DESTRUCT (EG, LASER SURGERY, ELECTROSURGERY, CRYOSURGERY, CHEMOSURGERY, SURGICAL CURETTEMENT), PREMALIGNANT LESIONS (EG, ACTINIC KERATOSES); 2ND THRU 14 LESIONS, EA (LIST SEP ADDITION CD, 1ST LESION) 01/17/20 07 [facility] DETERMINATION OF REFRACTIVE STATE 12/20/19 07 [facility] PSYCHIATRIC EVALUATION OF HOSPITAL RECORDS, OTHER PSYCHIATRIC REPORTS, PSYCHOMETRIC AND/OR PROJECTIVE TESTS, AND OTHER ACCUMULATED DATA FOR MEDICALDIAGNOSTIC PURPOSES 03/26/20 12 [facility] PREPARATION OF REPORT OF PATIENT'S PSYCHIATRIC STATUS, HISTORY, TREATMENT, OR PROGRESS (OTHER THAN FOR LEGAL OR CONSULTATIVE PURPOSES) FOR OTHER INDIVIDUALS, AGENCIES, OR INSURANCE CARRIERS 02/19/20 12 [facility] PSYCHIATRIC DIAGNOSTIC INTERVIEW EXAMINATION 02/13/20 12 [facility] FAMILY PSYCHOTHERAPY (CONJOINT PSYCHOTHERAPY) (WITH PATIENT PRESENT), 50 MINUTES 02/10/20 12 [facility] CRUTCHES UNDERARM, WOOD, ADJUSTABLE OR FIXED, PAIR, WITH PADS, TIPS AND HANDGRIPS 01/12/20 12 [facility] SIMPLE REPAIR OF SUPERFICIAL WOUNDS OF SCALP, NECK, AXILLAE, EXTERNAL GENITALIA, TRUNK AND/OR EXTREMITIES (INCLUDING HANDS AND FEET); 20.1 CM TO 30.0 CM 01/11/20 12 [facility] FAMILY PSYCHOTHERAPY (CONJOINT PSYCHOTHERAPY) (WITH PATIENT PRESENT), 50 MINUTES 01/10/20 12 [facility] FAMILY PSYCHOTHERAPY (CONJOINT PSYCHOTHERAPY) (WITH PATIENT PRESENT), 50 MINUTES 12/30/19 12 [facility] PSYCHIATRIC EVALUATION OF HOSPITAL RECORDS, OTHER PSYCHIATRIC REPORTS, PSYCHOMETRIC AND/OR PROJECTIVE TESTS, AND OTHER ACCUMULATED DATA FOR MEDICALDIAGNOSTIC PURPOSES 11/20/19 12 [facility] PREPARATION OF REPORT OF PATIENT'S PSYCHIATRIC STATUS, HISTORY, TREATMENT, OR PROGRESS (OTHER THAN FOR LEGAL OR CONSULTATIVE PURPOSES) FOR OTHER INDIVIDUALS, AGENCIES, OR INSURANCE CARRIERS 11/07/19 [facility] AUDIOMETRIC TESTING OF GROUPS 11/05/19 [facility] SCREENING TEST OF VISUAL ACUITY, QUANTITATIVE, BILATERAL 11/05/19 12 [facility] INDIVIDUAL PSYCHOTHERAPY, INSIGHT ORIENTED, BEHAVIOR MODIFYING AND/OR SUPPORTIVE, IN AN OFFICE OR OUTPATIENT FACILITY, APPROXIMATELY 45 TO 50 MINUTES [id number] WITH THE PATIENT 10/29/19 [facility] FITTING OF SPECTACLES, EXCEPT FOR APHAKIA; MONOFOCAL 10/16/19 12 [facility] INTERPRETATION OR EXPLANATION OF RESULTS OF PSYCHIATRIC, OTH MEDICAL EXAMS/PROCEDURES, OR OTH ACCUMULATED DATA TO FAMILY OR OTH RESPONSIBLE PERSONS,OR ADVISING THEM HOW TO ASSIST PATIENT 09/24/19 12 [facility] INTERACTIVE GROUP PSYCHOTHERAPY 09/16/19 12 [facility] INTERACTIVE GROUP PSYCHOTHERAPY 09/04/19 12 [facility] ALCOHOL AND/OR DRUG SERVICES; GROUP COUNSELING BY A CLINICIAN 09/02/19 12 [facility] ALCOHOL AND/OR DRUG SERVICES; GROUP COUNSELING BY A CLINICIAN 08/28/19 12 [facility] ALCOHOL AND/OR DRUG SERVICES; GROUP COUNSELING BY A CLINICIAN 08/26/19 12 [facility] ALCOHOL AND/OR DRUG SERVICES; GROUP COUNSELING BY A CLINICIAN 08/07/19 12 [facility] MEDICAL NUTRITION THERAPY; INITIAL ASSESSMENT AND INTERVENTION, INDIVIDUAL, [id number]-ROSS WITH THE PATIENT, EACH 15 MINUTES 08/05/19 12 [facility] ALCOHOL AND/OR DRUG SERVICES; GROUP COUNSELING BY A CLINICIAN 07/29/19 12 [facility] ALCOHOL AND/OR DRUG SERVICES; GROUP COUNSELING BY A CLINICIAN 07/24/19 12 [facility] INTERPRETATION OR EXPLANATION OF RESULTS OF PSYCHIATRIC, OTH MEDICAL EXAMS/PROCEDURES, OR OTH ACCUMULATED DATA TO FAMILY OR OTH RESPONSIBLE PERSONS,OR ADVISING THEM HOW TO ASSIST PATIENT 07/22/19 12 [facility] SIMPLE REPAIR OF SUPERFICIAL WOUNDS OF SCALP, NECK, AXILLAE, EXTERNAL GENITALIA, TRUNK AND/OR EXTREMITIES (INCLUDING HANDS AND FEET); 2.5 CM OR LESS 06/10/20 11 [facility] BEHAVIORAL HEALTH SCREENING TO DETERMINE ELIGIBILITY FOR ADMISSION TO TREATMENT PROGRAM 06/05/20 11 [facility] ALBUTEROL, INHALATION SOLUTION, FDA-APPROVED FINAL PRODUCT, NON-COMPOUNDED, ADMINISTERED THROUGH DME, UNIT DOSE, 1 MG 04/27/20 11 [facility] SCREENING TEST OF VISUAL ACUITY, QUANTITATIVE, BILATERAL 01/10/20 11 [facility] VISUAL FIELD EXAM,UNILAT/BI,INTERP &REP;EXT EXM(EG,GOLDMANN VIS FLD,AT LEAST 3 ISOP PLOT&STAT DET W/IN RHYS 30DEG/QUANT,AUTO THRSH LINDA,OCT G-1,32/42,HUMP VIS FLD ANAL FULL THRSH 30-2,24-2, OR 30/60-2) 01/10/20 11 [facility] SCANNING COMPUTERIZED OPHTHALMIC DIAGNOSTIC IMAGING, POSTERIOR SEGMENT, WITH INTERPRETATION AND REPORT, UNILATERAL OR BILATERAL; OPTIC NERVE 12/18/19 11 [facility] COMPUTERIZED CORNEAL TOPOGRAPHY, UNILATERAL OR BILATERAL, WITH INTERPRETATION AND REPORT 11/30/19 11 [facility] DESTRUCTION (EG, LASER SURGERY, ELECTROSURGERY, CRYOSURGERY, CHEMOSURGERY, SURGICAL CURETTEMENT), OF BENIGN LESIONS OTHER THAN SKIN TAGS OR CUTANEOUS VASCULAR PROLIFERATIVE LESIONS; UP TO 14 LESIONS 11/22/19 11 [facility] VISUAL FIELD EXAM,UNILAT/BI,INTERP &REP;EXT EXM(EG,GOLDMANN VIS FLD,AT LEAST 3 ISOP PLOT&STAT DET W/IN RHYS 30DEG/QUANT,AUTO THRSH LINDA,OCT G-1,32/42,HUMP VIS FLD ANAL FULL THRSH 30-2,24-2, OR 30/60-2) 05/31/20 10 [facility] VISUAL FIELD EXAM,UNILAT/BI,INTERP &REP;EXT EXM(EG,GOLDMANN VIS FLD,AT LEAST 3 ISOP PLOT&STAT DET W/IN RHYS 30DEG/QUANT,AUTO THRSH LINDA,OCT G-1,32/42,HUMP VIS FLD ANAL FULL THRSH 30-2,24-2, OR 30/60-2) 05/28/20 10 [facility] COLLECTION OF VENOUS BLOOD BY VENIPUNCTURE 04/19/20 10 [facility] SCREENING TEST OF VISUAL ACUITY, QUANTITATIVE, BILATERAL 04/19/20 10 [facility]D EAR PROTECTOR ATTENUATION MEASUREMENTS 04/19/20 10 [facility] COLLECTION OF VENOUS BLOOD BY VENIPUNCTURE 07/31/19 10 [facility] SCREENING TEST OF VISUAL ACUITY, QUANTITATIVE, BILATERAL 07/04/19 10 [facility] COLLECTION OF VENOUS BLOOD BY VENIPUNCTURE 07/04/19 10 [facility] PSYCHIATRIC DIAGNOSTIC INTERVIEW EXAMINATION 12/06/19 09 [facility] SCREENING TEST OF VISUAL ACUITY, QUANTITATIVE, BILATERAL 12/01/19 09 [facility] COLLECTION OF VENOUS BLOOD BY VENIPUNCTURE 04/30/20 08 [facility] IMMUNIZATION ADMINISTRATION (INCLUDES PERCUTANEOUS, INTRADERMAL, SUBCUTANEOUS, OR INTRAMUSCULAR INJECTIONS); 1 VACCINE (SINGLE OR COMBINATION VACCINE/TOXOID) 08/20/19 08 [facility] HEALTH AND BEHAVIOR INTERVENTION, EACH 15 MINUTES, [id number]; GROUP (2 OR MORE PATIENTS) 07/08/19 08 [facility] Psychiatric Diagnostic Evaluation Review of Records and Reports Psychiatric Diagnostic Evaluation Review of Records and Reports [id number] 07/14/19 13 CAROLYN ABDALLA [facility] Psychiatric Therapy Preparation of Psychiatric Status Report Psychiatric Therapy Preparation of Psychiatric Status Report [id number] 07/14/19 13 CAROLYN ABDALLA [facility] Psychiatric Diagnostic Evaluation Comprehensive Examination Psychiatric Diagnostic Evaluation Comprehensive Examination [id number] 02/20/20 12 JOHNATHAN WILKERSON [facility] Psychiatric Therapy Preparation of Psychiatric Status Report Psychiatric Therapy Preparation of Psychiatric Status Report [id number] 02/19/20 12 FLORA KILLIAN [facility] Psychiatric Diagnostic Evaluation Review of Records and Reports Psychiatric Diagnostic Evaluation Review of Records and Reports [id number] 02/19/20 12 FLORA KILLIAN [facility] Clinical Social Work Counseling Marital 02/11/20 12 LULU MYERS [facility] Crutches, underarm, wood, adjustable or fixed, pair, with pads, tips and handgrips 01/12/20 12 DOC SANTIAGO [facility] Clinical Social Work Counseling Marital 01/10/20 12 LULU MYERS [facility] Clinical Social Work Counseling Marital 12/30/19 12 LULU MYERS [facility] Psychiatric Diagnostic Evaluation Review of Records and Reports Psychiatric Diagnostic Evaluation Review of Records and Reports [id number] 11/21/19 12 JENNIFER STRINGER [facility] Psychiatric Therapy Preparation of Psychiatric Status Report Psychiatric Therapy Preparation of Psychiatric Status Report [id number] 11/21/19 12 JENNIFER STRINGER [facility] Psychiatric Therapy Preparation of Psychiatric Status Report Psychiatric Therapy Preparation of Psychiatric Status Report [id number] 11/08/19 12 MADDIE NATION [facility] Psychiatric Diagnostic Evaluation Comprehensive Examination Psychiatric Diagnostic Evaluation Comprehensive Examination [id number] 11/08/19 12 MADDIE NATION [facility] Screening Test Of Visual Acuity, Quantitative, Bilateral Screening Test Of Visual Acuity, Quantitative, Bilateral [id number] 11/05/19 12 VERÓNICA REYNOLDS [facility] Audiogram (Screening) Audiogram (Screening) 38924 11/05/19 12 FREDRICK HASSAN [facility] Audiometry Group Testing Audiometry Group Testing 18434 11/05/19 12 FREDRICK HASSAN [facility] Clinical Social Work Individual Outpatient Counseling 45 Minutes Clinical Social Work Individual Outpatient Counseling 45 Minutes [id number] 10/29/19 12 JENNIFER STRINGER [facility] Spectacles Services Fitting Monofocal Except For Aphakia Spectacles Services Fitting Monofocal Except For Aphakia 62344 10/16/19 12 VERÓNICA REYNOLDS fit by [facility] Ophthalmological Prior Patient Start Comprehensive Care Ophthalmological Prior Patient Start Comprehensive Care [id number] 10/16/19 12 VERÓNICA REYNOLDS [facility] Determination Of Refractive State Determination Of Refractive State 17266 10/16/19 12 VERÓNICA REYNOLDS [facility] Scanning Computerized Ophthalmic Diagnostic Imaging Optic Nerve Scanning Computerized Ophthalmic Diagnostic Imaging Optic Nerve 51636 10/16/19 12 VERÓNICA REYNOLDS [facility] Psychiatric Therapy Counseling Family / Guardians Psychiatric Therapy Counseling Family / Guardians [id number] 09/24/19 12 MARIA DEL ROSARIO ANG E DoD Alcohol and/or drug services; group counseling by a clinician 09/16/19 12 MARIA DEL ROSARIO ANG E DoD Psychotherapy Group Interactive Psychotherapy Group Interactive [id number] 09/16/19 12 MARIA DEL ROSARIO ANG E DoD Alcohol and/or drug services; group counseling by a clinician 09/12/19 12 ASHIA HOPE E DoD Psychotherapy Group Interactive Psychotherapy Group Interactive [id number] 09/12/19 12 ASHIA HOPE E Nadja Alcohol and/or drug services; group counseling by a clinician 09/06/19 12 ASHIA HOPE E DoD Psychotherapy Group Interactive Psychotherapy Group Interactive [id number] 09/06/19 12 ASHIA HOPE E Nadja Alcohol and/or drug services; group counseling by a clinician 08/29/19 12 MARIA DEL ROSARIO ANG E Nadja Psychotherapy Group Interactive Psychotherapy Group Interactive [id number] 08/29/19 12 ASHIA HOPE E Nadja Alcohol and/or drug services; group counseling by a clinician 08/26/19 12 ASHIA HOPE E DoD Psychotherapy Group Interactive Psychotherapy Group Interactive [id number] 08/26/19 12 ASHIA HOPE E DoD Psychiatric Therapy Counseling Family / Guardians Psychiatric Therapy Counseling Family / Guardians [id number] 08/06/19 12 MARIA DEL ROSARIO ANG E DoD Medical Nutrition Therapy Initial A e ment And Intervention Each 15 Minutes Medical Nutrition Therapy Initial Assessment And Intervention Each 15 Minutes [id number] 08/05/19 12 GWYN MCDONALD Nadja Alcohol and/or drug services; group counseling by a clinician 07/26/19 12 MARIA DEL ROSARIO ANG Psychotherapy Group Interactive Psychotherapy Group Interactive [id number] 07/26/19 12 MARIA DEL ROSARIO ANG Behavioral health screening to determine eligibility for admi ion to treatment program 06/07/20 11 MARIA DEL ROSARIO ANG Alcohol and/or drug a e ment 06/07/20 11 MARIA DEL ROSARIO ANG Psychiatric Diagnostic Evaluation Comprehensive Examination Psychiatric Diagnostic Evaluation Comprehensive Examination [id number] 06/07/20 11 MARIA DEL ROSARIO ANG Screening Test Of Visual Acuity, Quantitative, Bilateral Screening Test Of Visual Acuity, Quantitative, Bilateral 50348 01/10/20 11 OBI GALLEGOS Visual Chandler Test Extended Examination Visual Chandler Test Extended Examination [id number] 01/10/20 11 YANNI ALVARADO Ophthalmological Prior Patient Start Intermediate Level Care Ophthalmological Prior Patient Start Intermediate Level Care [id number] 01/10/20 11 YANNI ALVARADO Scanning Computerized Ophthalmic Diagnostic Imaging Optic Nerve Scanning Computerized Ophthalmic Diagnostic Imaging Optic Nerve 82123 12/18/19 11 YANNI ALVARADO Anterior Chamber Angles (Gonioscopy) Anterior Chamber Angles (Gonioscopy) 46292 12/18/19 11 YANNI ALVARADO Ophthalmological Prior Patient Start Comprehensive Care Ophthalmological Prior Patient Start Comprehensive Care [id number] 12/18/19 11 YANNI ALVARADO Visual Chandler Test Extended Examination Visual Chandler Test Extended Examination [id number] 12/18/19 11 YANNI ALVARADO Computerized Corneal Topography Computerized Corneal Topography 52289 11/30/19 11 YANNI ALVARADO Determination Of Refractive State Determination Of Refractive State 41635 11/30/19 11 YANNI ALVARADO Corneal Pachymetry Both Eyes Corneal Pachymetry Both Eyes 25109 11/30/19 11 YANNI ALVARADO Ophthalmological New Patient Start Comprehensive Care Ophthalmological New Patient Start Comprehensive Care 24137 11/30/19 11 YANNI ALVARADO Destruct Of Benign Lesion By Any Method Second Through 14 11/22/19 11 RONNIE DANIEL Visual Chandler Test Extended Examination Visual Chandler Test Extended Examination [id number] 05/31/20 10 VERÓNICA REYNOLDS Ophthalmological Prior Patient Start Intermediate Level Care Ophthalmological Prior Patient Start Intermediate Level Care 78754 05/31/20 10 VERÓNICA REYNOLDS Ophthalmological New Patient Start Comprehensive Care Ophthalmological New Patient Start Comprehensive Care 61932 05/28/20 10 VERÓNICA REYNOLDS Determination Of Refractive State Determination Of Refractive State 15894 05/28/20 10 VERÓNICA REYNOLDS Spectacles Services Fitting Monofocal Except For Aphakia Spectacles Services Fitting Monofocal Except For Aphakia 59979 05/28/20 10 VERÓNICA REYNOLDS Visual Chandler Test Extended Examination Visual Chandler Test Extended Examination [id number] 05/28/20 10 VERÓNICA REYNOLDS Diagnostic Imaging Ocular Coherence Topography 05/28/20 10 VERÓNICA REYNOLDS Audiogram (Screening) Audiogram (Screening) 24686 04/19/20 10 ALLY BARRERA [facility] Audiometry Group Testing Audiometry Group Testing 36342 04/19/20 10 ELSBERRYALLY [facility] Ear Protector Attenuation Measurements Ear Protector Attenuation Measurements 30209 04/19/20 10 ALLY BARRERA [facility] Psychiatric Diagnostic Evaluation Comprehensive Examination Psychiatric Diagnostic Evaluation Comprehensive Examination [id number] 12/07/19 09 KEITH KELLER [facility] Screening Test Of Visual Acuity, Quantitative, Bilateral Screening Test Of Visual Acuity, Quantitative, Bilateral 43477 12/01/19 09 PAM CHAUDHARY [facility] Influenza Virus Vaccine Intranasal Live Attenuated 05/02/20 08 MARGARITA SCHMITZ [facility] Immunization Admin By Intranasal / Oral Route One Vaccine Immunization Admin By Intranasal / Oral Route One Vaccine 52099 05/02/20 08 MARGARITA SCHMITZ [facility] Venipuncture Venipuncture 74662 05/02/20 08 [facility] Hepatitis B Vaccine (Active) Adult Dosage 08/20/19 08 [facility] Skin Test Anergy Tuberculin Intradermal Skin Test Anergy Tuberculin Intradermal 80841 08/20/19 08 [facility] Anthrax Vaccine, For Subcutaneous Use 08/20/19 08 [facility] Vaccines Vaccines 01003 08/20/19 08 [facility] Immunization Administration By Injection, Each Additional Vaccine 08/20/19 08 [facility] Immunization Administration By Injection, One Vaccine Immunization Administration By Injection, One Vaccine 49987 08/20/19 08 ZEB GENTILE [facility] Health And Behav Intervention, Each Additional 15 Min Grp (2 Or More) Health And Behav Intervention, Each Additional 15 Min Grp (2 Or More) 58028 07/17/19 08 MEHDI KAMARA [facility] Influenza Split Virus Vaccine 0.5mL Dosage Intramuscular 05/04/[facility] Typhoid Vaccine Vi Capsular Polysaccharide, For Intramus Use Typhoid Vaccine Vi Capsular Polysaccharide, For Intramus Use 90491 05/04/20 [facility] Immunization Administration By Injection, Each Additional Vaccine 05/04/20 [facility] Hepatitis A And Hepatitis B (Intramuscular Use) Adult Dosage Hepatitis A And Hepatitis B (Intramuscular Use) Adult Dosage 17996 05/04/20 [facility] Immunization Administration By Injection, One Vaccine Immunization Administration By Injection, One Vaccine 39211 05/04/20 [facility] Physician Supervised Services Provision Of Educational Supplies Physician Supervised Services Provision Of Educational Supplies [id number] 03/06/20 07 ROXANA ACUNA [facility] Destruction Of Flat Warts By Cryosurgery Up To 14 Lesions 02/25/20 07 BUSTER JULIAN [facility] Destruction Of Flat Warts By Cryosurgery Up To 14 Lesions 02/12/20 07 KRISTI BEDOYA [facility] Destruction Of Flat Warts By Cryosurgery Up To 14 Lesions 02/06/20 07 KRISTI BEDOYA wart rx with liquis nitrogen [facility] Ear mold/insert, not disposable, any type 01/22/20 07 [facility] Ear Protector Attenuation Measurements Ear Protector Attenuation Measurements 59050 01/22/20 07 [facility] Threshold Audiogram (Pure Tone) Threshold Audiogram (Pure Tone) 14220 01/22/20 07 [facility] Audiometry Group Testing Audiometry Group Testing [id number] 01/22/20 07 [facility] Special Physician Services Analysis Of Computerized Data Special Physician Services Analysis Of Computerized Data [id number] 01/22/20 07 [facility] Physician Supervised Services Provision Of Special Supplies Physician Supervised Services Provision Of Special Supplies [id number] 01/22/20 07 [facility] Physician Supervised Group Educational Services 01/22/20 07 BASIL THAYER [facility] Destruct Of Premalignant Lesion By Any Method 2nd Through 14 01/17/20 07 BUSTER JULIAN Destruction Of Premalignant Lesion By Any Method One Lesion 01/17/20 07 BUSTER JULIAN [facility] Determination Of Refractive State Determination Of Refractive State 13114 12/20/19 07 TAMRA KAUR Spectacles Services Fitting Monofocal Except For Aphakia Spectacles Services Fitting Monofocal Except For Aphakia 51370 12/20/19 07 TAMRA KAUR Ophthalmological New Patient Start Intermediate Level Care Ophthalmological New Patient Start Intermediate Level Care 67057 12/20/19 07 TAMRA KAUR Social History Combined list of available smoking, tobacco, and other social history from 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 03/03/2019 [facility] History of tobacco use WY-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 NO 01/21/2019 [facility] History of tobacco use CURRENT SMOKER 01/28/2018 [facility] History of tobacco use V1-PT NOT INTERESTED IN QUIT TOBACCO USE 10/29/2017 [facility] History of tobacco use CURRENT SMOKER 02/03/2017 [facility] History of tobacco use CURRENT SMOKER 08/16/2014 [facility] History of tobacco use V1-PT READY TO QUIT TOBACCO USE 06/07/2013 [facility] History of tobacco use QUIT TOBACCO USE IN PAST YEAR 08/21/2012 [facility] History of tobacco use QUIT TOBACCO USE IN PAST YEAR 07/07/2012 quit a month [facility] This section is an empty social history section. [facility] Plan of Care List of future care activities from Department of 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 Additional future care activities may be listed in the Assessment and Plan section. Date/Time Care Activity Care Activity Detail [facility] 09/10/2024 AMBULATORY - MEDICINE AMBULATORY - MEDICI [facility] 09/17/2024 AMBULATORY - MEDICINE AMBULATORY - MEDICI [facility]
== END 2024-07-30 13:34 | disposition home or self-care (01) ==
CPT/HCPCS: 99214

== ENCOUNTER → 2024-07-30 13:01 | Outpatient (BNVA) | payer OTHER, SELFPAY | DX: G56.03 Carpal tunnel syndrome, bilateral upper limbs (principal) | CPT/HCPCS: 99212 ==

== ENCOUNTER 2024-10-19 11:01 | Day surgery (SDC) | payer OTHER, SELFPAY ==
--- OUTSIDE RECORDS SUMMARY | 2024-08-31 09:42 | XMS_ITS | Continuity of Care Document ---
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 By: [facility]K [facility] Entered By: BOBBI CARL Comment: reviewed [facility] Condylomata Acuminata Active Condition BUSY GINGIV/PERIODONT DIS NOS Active Condition [facility] [...] LEYDI GARCIA Comment: Diagnosed and treated by [facility] [...] Site Reaction Lot Number CVX Code Drug Cost And Sales Record Supervisor Status Comments Source FLU,3 YRS (HISTORICAL) 2016 88 complet ed [facility] DTAP, UNSPECIFIED FORMULATION 2014 107 complet ed [facility] FLU,3 YRS (HISTORICAL) 2011 88 complet ed [facility] FLU,3 YRS (HISTORICAL) 2011 88 complet ed Miliatry [facility] tetanus toxoid, reduced diphtheria toxoid, and acellular pertu is vaccine, adsorbed 1 2011 LAQUITA ARREGUIN [id number] [place], [place] [address] complet ed tetanus toxoid, reduced diphtheri a toxoid, and acellular pertussis vaccine, adsorbed DoD influenza virus vaccine, live, attenuated, for intranasal use 1 2010 [id number] 111 Unknown (UNK) comple t ed influenza virus vaccine, live, attenuate d, for intranasa l use DoD influenza virus vaccine, split virus (incl. purified surface antigen)-reti red CODE 1 2009 [id number] Sanofi Pasteur (PMC) complet ed influenza virus vaccine, split virus (incl. purified surface antigen)- retired CODE DoD anthrax vaccine 6 2009 [id number] Unknown (UNK) comple t ed anthrax vaccine DoD PNEUMOCOCCAL, UNSPECIFIED FORMULATION 2009 109 complet ed . [facility] anthrax vaccine 5 2009 [id number] [employer] [place] ([facility]) complet ed anthrax vaccine DoD typhoid Vi capsular polysaccharid e vaccine 1 2009 [id number] Sanofi Pasteur (PMC) complet ed typhoid Vi capsular polysacch aride vaccine DoD DTAP, UNSPECIFIED FORMULATION 2009 107 complet ed [facility] Novel influenza-H1N 1-09, injectable 1 2008 [id number] 127 [employer]. (NOV) complet ed Novel influenza -U6V0-60, injectabl e DoD influenza virus vaccine, live, attenuated, for intranasal use 1 2008 [id number] 111 [employer]. (MED) complet ed influenza virus vaccine, live, attenuate d, for intranasa l use DoD influenza virus vaccine, live, attenuated, for intranasal use 1 2008 [id number] 111 [employer]. (MED) complet ed influenza virus vaccine, live, attenuate d, for intranasa l use DoD influenza virus vaccine, live, attenuated, for intranasal use 1 2007 [id number] 111 Unknown (UNK) comple t ed influenza virus vaccine, live, attenuate d, for intranasa l use DoD anthrax vaccine 4 2007 [id number] 24 [employer] [place] (MIP) complet ed anthrax vaccine DoD anthrax vaccine 3 2007 [id number] Unknown (UNK) comple t ed anthrax vaccine DoD anthrax vaccine 2 2007 [id number] 24 [employer] [place] (MIP) complet ed anthrax vaccine DoD hepatitis A vaccine, adult dosage 3 2007 [id number] 52 Unknown (UNK) comple t ed hepatitis A vaccine, adult dosage DoD anthrax vaccine 1 2007 ZEB GENTILE [id number] 24 [employer] [place] ([facility]) complet ed anthrax vaccine DoD hepatitis B vaccine, adult dosage 2 2007 ZEB GENTILE [id number] 43 [employer]Kline (SKB) complet ed hepatitis B vaccine, adult dosage DoD vaccinia (smallpox) vaccine 1 2007 ZEB GENTILE [id number] [place] (WAL) complet ed vaccinia (smallpox ) vaccine DoD tuberculin skin test; purified protein derivative solution, intradermal 1 2007 ZEB GENTILE [id number] 96 [place] (PD) complet ed tuberculi n [...] B vaccine 2 2006 [id number] 104 [employer] (SKB) complet ed hepatitis A and hepatitis B vaccine DoD poliovirus vaccine, inactivated 1 2006 [id number] Sanofi Pasteur (PMC) complet ed polioviru [...] diphtheria toxoid conjugate vaccine (MCV4P) 1 2006 [id number] 114 Sanofi Pasteur (PMC) complet ed meningoco ccal polysacch aride (groups A, C, Y and W-135) diphtheri a toxoid conjugate vaccine (MCV4P) DoD tetanus toxoid, reduced diphtheria toxoid, and acellular pertu is vaccine, adsorbed 1 2006 [id number] 115 Sanofi Pasteur (PMC) complet ed tetanus toxoid, reduced diphtheri a toxoid, and acellular pertussis vaccine, adsorbed DoD Encounters Combined list of: 1) Encounters from Department of Veterans Affairs facilities going backup to the last 18 months, not all VA inpatient encounters are included; 2) Encounters from the Department of Defense facilities going backup to 280 months. Location Location Details Encounter Type Encounter Number Reason For Visit Attending Provider ADM Date DC Date Status Disposition Source [employer](PES Optometry -Trainee) OUTPATIENT [id number] YARIEL CAN 12/19 Released w/o Limitations [employer](P ES Optomet ry-Kyree nee) [facility](TMC Ambulator y) OUTPATIENT [id number] TESS STEPHENSON 01/09 Released w/o Limitations [employer](T MC Ambulat ory) [employer]([facility] Ambulator y) OUTPATIENT [id number] BUSTER JULIAN 01/16 Released w/o Limitations [employer](T MC Ambulat ory) [employer](IEP Hearing Conservat ion) OUTPATIENT [id number] BASIL THAYER 01/21 Released w/o Limitations [employer](I EP Hearing Conserv ation) [employer]([facility] Ambulator y) OUTPATIENT [id number] MARCELA MELÉNDEZ 02/05 Released w/o Limitations [employer](T MC Ambulat ory) [employer]([facility] Ambulator y) OUTPATIENT [id number] KOBE SANDHU 02/11 Released w/o Limitations [employer](T MC Ambulat ory) [employer]([facility] Ambulator y) OUTPATIENT [id number] F/U ANANT LINDQUIST 02/18 Released w/o Limitations [employer](T MC Ambulat ory) [employer]([facility] Ambulator y) OUTPATIENT [id number] BUSTER JULIAN 02/24 Released w/o Limitations [employer](T MC Ambulat ory) BERNADETTE Wharton([facility]) OUTPATIENT [id number] SELF CARE CLASS ROXANA ACUNA 03/05 Released w/o Limitations [facility]ER[facility]) [facility]ERNA[facility] Wharton([facility] OUTPATIENT [id number] PT HERE FOR IMMUN CLINIC ONLY/[facility] VICENTE MAGALLON 04/29 Released w/o Limitations [facility]ino([facility] [place] OUTPATIENT [id number] flu shot ZEB GENTILE 07/13 Released w/o Limitations [facility] [place]) [facility]) OUTPATIENT [id number] INPROC MEHDI KAMARA 07/17 Released w/o Limitations [facility]) [facility](Z VSK Primary Care) OUTPATIENT [id number] PETRA FISHER 08/10 Released w/o Limitations [facility](ZZZ VSK Primary Care) [facility](Z VSK Primary Care) OUTPATIENT [id number] f/u STD PETRA MAYERS 08/18 Released w/o Limitations [facility](Z VSK Primary Care) [facility](Z VSK Primary Care) OUTPATIENT [id number] SAMANTHAAdrianZEB 08/20 Released w/o Limitations [facility](Z VSK Primary Care) [facility] OUTPATIENT [id number] 02/12 Released w/o Limitations Theater Fac[facility](VSK Pre/Post Deploymen t) OUTPATIENT [id number] CATARINA BYRNE 04/30 Released w/o Limitations [facility] Pre/Pos t Deploym ent) [facility] Optometry ) OUTPATIENT [id number] chapter PAM Mcfadden 11/30 Released w/o Limitations [facility](VSK Optomet ry) [facility](1AD 2CR 6TH SQUADRON) OUTPATIENT [id number] CATARINA Pardo 12/15 Released w/o Limitations [facility](1AD 2CR 6TH [place]QU[place] N) [facility](1AD 2CR 6TH SQUADRON) OUTPATIENT [id number] infecte d R hand KARISSA LOZANO 03/08 Immediate Referral [facility](1AD 2CR 6TH SQUADRO N) [facility](1AD 2CR 6TH [place]AD[place]) OUTPATIENT [id number] d/c KARISSA LOZANO 03/09 Released w/o Limitations [facility](1AD 2CR 6TH SQUADRO N) [facility] OUTPATIENT [id number] 11/03 Released w/o Limitations [facility] OUTPATIENT [id number] 12/15 Released w/o Limitations Theater [facility](Hearin g Conservat ion 2) OUTPATIENT [id number] Hearing Exam FREDRICK HASSAN L 04/19 Released w/o Limitations [facility](Hear ing Conserv ation 2) [facility]) OUTPATIENT [id number] eye exam GAIL VERÓNICA K 05/28 Released w/o Limitations [facility](Opto metry Clinic) [facility]) OUTPATIENT [id number] visual field24 -2 BRIGITTE REYNOLDSMichelle Hewitt 05/31 Released w/o Limitations [facility]ry [facility]) [facility]) OUTPATIENT [id number] Tobacco Section Repairer MARGARITA Marx 08/06 Released w/o Limitations [facility]) [facility](Aviati on Clinic) OUTPATIENT [id number] REFERRA L TO MORENO URBANO 09/28 Released w/o Limitations [facility](Avia tion Clinic) [facility](Dermat ology Clinic) OUTPATIENT [id number] Genital warts RONNIE DANIEL 11/21 Released w/o Limitations [facility](Derm atology Clinic) [facility](Ophtha lmology Clinic) OUTPATIENT [id number] PRK Screen YANNI ALVARADO 11/29 Released w/o Limitations [facility](Opht halmolo gy Clinic) [facility](Ophtha lmology Clinic) OUTPATIENT [id number] per Dr. Alvarado v/f 30-2 YANNI Mahajan 12/17 Released w/o Limitations [facility](Opht halmolo gy Clinic) [facility](Ophtha lmology Clinic) OUTPATIENT [id number] per Dr. Alvarado V/F ...use cyclo RX YANNI ALVARADO 01/09 Released w/o Limitations [facility](Opht halvtlo gy Clinic) [facility](Deploy ment) OUTPATIENT [id number] PDHRA/V PRINCESS POLLOCK Tucker 01/09 Released w/o Limitations [facility](Depl oyment) [facility]) OUTPATIENT [id number] Ankle Pain MORENO OLIVEIRA 04/18 Released with Work/Duty Limitations [facility]) OUTPATIENT [id number] MARGARITA FARMER 04/27 Released w/o Limitations [facility]) [facility] JAYSHREE Level 1) OUTPATIENT [id number] EVMARIA DEL ROSARIO DILLARD E 06/05 Released w/o Limitations [facility](IMCO M JAYSHREE Level 1) [facility]) OUTPATIENT [id number] YISEL JACOBS 06/10 Released w/o Limitations [facility]) [facility]REE Level 1) OUTPATIENT [id number] rtm MARIA DEL ROSARIO ANG E 07/22 Released w/o Limitations [facility](IMCO M JAYSHREE Level 1) [facility]REE Level 1) OUTPATIENT [id number] grp MARIA DEL ROSARIO ANG E 07/25 Released w/o Limitations [facility](IMCO M JAYSHREE Level 1) [facility](Clinic al Dietetics ) OUTPATIENT [id number] self referre d weight managem ent GWYN MCDONALD 08/05 Released w/o Limitations [facility](Clin ical Dieteti cs) J[facility]AY[facility]REE Level 1) OUTPATIENT [id number] [facility] 08[facility]08 Released w/o Limitations [facility] [place] [place] [facility] 1[place] [facility] [place] [place] 1) OUTPATIENT [id number] [facility] ANGMARIA DEL ROSARIO E 08/15 Released w/o Limitations [facility] [place] 1[place] [facility] [place] [place] 1) OUTPATIENT [id number] [facility] [place] 08/26 Released w/o Limitations [facility] [place] [place] 1[place] [facility] [place] [place] 1) OUTPATIENT [id number] [facility] [place] Released w/o Limitations [facility] [place] [place] Level 1) [facility] J[facility] Armijo([facility]AY[facility]REE Level 1) OUTPATIENT [id number] [facility] [place] 09/01 Released w/o Limitations [facility] [place] [place] 1[place] [facility] [place] [place] 1) OUTPATIENT [id number] [facility] 09/03 Released w/o Limitations [facility] [place] [place] 1) [facility] Armijo([facility]REE Level 1) OUTPATIENT [id number] [facility] [place] 09/15 Released w/o Limitations [facility] [place] [place] Level 1) [facility] J[facility] Armijo([facility]AY[facility]REE Level 1) OUTPATIENT [id number] [facility] ANGMARIA DEL ROSARIO E 09/23 Released w/o Limitations [facility] [place]IM[facility] M [place]AY[place] Level 1) Watson[facility] Richey([facility]) OUTPATIENT [id number] Tobacco cessati on [facility] 10/06 Released w/o Limitations [facility] Armijo([facility]) Watson[facility] Richey(Aviati on Clinic) OUTPATIENT [id number] headach e TERESELUIS 10/13 Released w/o Limitations [facility]ia tion Clinic) [facility]) OUTPATIENT [id number] eye exam VERÓNICA REYNOLDS 10/15 Released w/o Limitations [facility] metry Clinic) [facility] M01C WTT 3) OUTPATIENT [id number] Chapter 14-12C HORTENSIA CLANCY 11/04 Released w/o Limitations [facility] M01C WTT 3) [facility]) OUTPATIENT [id number] chapter VERÓNICA Salvador 11/04 Released w/o Limitations [facility]ry [facility]) [facility](Hearin g Conservat ion 2) OUTPATIENT [id number] Hearing Exam FREDRICK HASSAN 11/04 Released w/o Limitations [facility](Hear ing Conserv ation 2) [facility] OUTPATIENT [id number] DOC SANTIAGO 11/24 Sick at Home/Quarter s [facility]) [facility](Aviati on Clinic) OUTPATIENT [id number] part 2 CHAPTER physicMORENO Momin 12/02 Released w/o Limitations [facility](Avia tion Clinic) [facility]i on Clinic) OUTPATIENT [id number] cyst on head WILIAN MANZANARES J 01/08 Released w/o Limitations [facility]ia [facility]ion Clinic) [facility] OUTPATIENT [id number] FREDRICK MARTIN 01/10 Released w/o Limitations [facility]) [facility] OUTPATIENT [id number] DOC SANTIAGO 01/11 Released w/o Limitations JINA Weber([facility]) JINA Weber([facility]) OUTPATIENT [id number] mitali jaimes f/u MORENO OLIVEIRA 01/13 Released with Work/Duty Limitations JINA Weber([facility]) [facility] En[facility] [id number] DEBBIE UNGER 11/16 [facility] En[facility] [id number] 12/09 [facility] En[facility] [id number] 12/09 [facility] En[facility] [id number] 05/12 [facility] En[facility] [id number] 05/12 [facility] En[facility] [id number] 06/11 [facility] En[facility] [id number] 07/08 [facility] En[facility] [id number] 07/12 [facility] Procedures Combined list of: 1) Procedures from Department of Veterans Affairs facilities going back up to thelast 18 months, not all VA non-surgical procedures are included; 2) All procedures from the Department of Defense facilities. Procedure Procedure Type Code Date Perfomer Comments Sour e INFLUENZA VIRUS VACCINE, TRIVALENT (IIV3), SPLIT VIRUS, 0.5 ML DOSAGE, FOR INTRAMUSCULAR USE 04/29/20 07 [facility] EDUCATIONAL SUPPLIES, SUCH BOOKS, TAPES, AND PAMPHLETS, FOR THE PATIENT'S EDUCATION AT COST TO PHYSICIAN OR OTHER QUALIFIED HEALTH DESIGNER AND PATTERNMAKER 03/05/20 07 [facility] DESTRUCTION OF LESION(S), PENIS (EG, CONDYLOMA, PAPILLOMA, MOLLUSCUM CONTAGIOSUM, HERPETIC VESICLE), SIMPLE; CRYOSURGERY 02/25/20 07 [facility] DESTRUCTION (EG, LASER SURGERY, ELECTROSURGERY, CRYOSURGERY, CHEMOSURGERY, SURGICAL CURETTEMENT), OF BENIGN LESIONS OTHER THAN SKIN TAGS OR CUTANEOUS VASCULAR PROLIFERATIVE LESIONS; UP TO 14 LESIONS 02/12/20 07 [facility] DESTRUCTION (EG, LASER SURGERY, ELECTROSURGERY, CRYOSURGERY, CHEMOSURGERY, SURGICAL CURETTEMENT), OF BENIGN LESIONS OTHER THAN SKIN TAGS OR CUTANEOUS VASCULAR PROLIFERATIVE LESIONS; UP TO 14 LESIONS 02/06/20 07 [facility] PHYS/OTH QUALIFIED HEALTH DESIGNER AND PATTERNMAKER QUALIFIED,EDUCATION,T RAIN,LICENSURE/REGULA TION (WHEN APPLICABLE) EDUC SER RENDERED TO PATS IN A GRP SETTING (EG,,OBESITY, OR DIABETIC INSTRUCT) 01/22/20 07 [facility] DESTRUCT (EG, LASER SURGERY, ELECTROSURGERY, CRYOSURGERY, CHEMOSURGERY, SURGICAL CURETTEMENT), PREMALIGNANT LESIONS (EG, ACTINIC KERATOSES); 2ND THRU 14 LESIONS, EA (LIST SEP ADDITION CD, 1ST LESION) 01/17/20 07 [facility] DETERMINATION OF REFRACTIVE STATE 12/20/19 07 [facility] PSYCHIATRIC DIAGNOSTIC INTERVIEW EXAMINATION 12/06/19 09 [facility] SCREENING TEST OF VISUAL ACUITY, QUANTITATIVE, BILATERAL 12/01/19 09 [facility] COLLECTION OF VENOUS BLOOD BY VENIPUNCTURE 04/30/20 08 [facility] IMMUNIZATION ADMINISTRATION (INCLUDES PERCUTANEOUS, INTRADERMAL, SUBCUTANEOUS, OR INTRAMUSCULAR INJECTIONS); 1 VACCINE (SINGLE OR COMBINATION VACCINE/TOXOID) 08/20/19 08 [facility] HEALTH AND BEHAVIOR INTERVENTION, EACH 15 MINUTES, [id number]; GROUP (2 OR MORE PATIENTS) 07/08/19 08 [facility] PSYCHIATRIC EVALUATION OF HOSPITAL RECORDS, OTHER PSYCHIATRIC REPORTS, PSYCHOMETRIC AND/OR PROJECTIVE TESTS, AND OTHER ACCUMULATED DATA FOR MEDICALDIAGNOSTIC PURPOSES 03/26/20 12 [facility] PREPARATION OF REPORT OF PATIENT'S PSYCHIATRIC STATUS, HISTORY, TREATMENT, OR PROGRESS (OTHER THAN FOR LEGAL OR CONSULTATIVE PURPOSES) FOR OTHER INDIVIDUALS, AGENCIES, OR INSURANCE CARRIERS 02/19/20 12 [facility] PSYCHIATRIC DIAGNOSTIC INTERVIEW EXAMINATION 02/13/20 12 [facility] FAMILY PSYCHOTHERAPY (CONJOINT PSYCHOTHERAPY) (WITH PATIENT PRESENT), 50 MINUTES 02/10/20 12 [facility] CRUTCHES UNDERARM, WOOD, ADJUSTABLE OR FIXED, PAIR, WITH PADS, TIPS AND HANDGRIPS 01/12/20 12 [facility] SIMPLE REPAIR OF SUPERFICIAL WOUNDS OF SCALP, NECK, AXILLAE, EXTERNAL GENITALIA, TRUNK AND/OR EXTREMITIES (INCLUDING HANDS AND FEET); 20.1 CM TO 30.0 CM 01/11/20 12 [facility] FAMILY PSYCHOTHERAPY (CONJOINT PSYCHOTHERAPY) (WITH PATIENT PRESENT), 50 MINUTES 01/10/20 12 [facility] FAMILY PSYCHOTHERAPY (CONJOINT PSYCHOTHERAPY) (WITH PATIENT PRESENT), 50 MINUTES 12/30/19 12 [facility] PSYCHIATRIC EVALUATION OF HOSPITAL RECORDS, OTHER PSYCHIATRIC REPORTS, PSYCHOMETRIC AND/OR PROJECTIVE TESTS, AND OTHER ACCUMULATED DATA FOR MEDICALDIAGNOSTIC PURPOSES 11/20/19 12 [facility] PREPARATION OF REPORT OF PATIENT'S PSYCHIATRIC STATUS, HISTORY, TREATMENT, OR PROGRESS (OTHER THAN FOR LEGAL OR CONSULTATIVE PURPOSES) FOR OTHER INDIVIDUALS, AGENCIES, OR INSURANCE CARRIERS 11/07/19 [facility] AUDIOMETRIC TESTING OF GROUPS 11/05/19 [facility] SCREENING TEST OF VISUAL ACUITY, QUANTITATIVE, BILATERAL 11/05/19 12 [facility] INDIVIDUAL PSYCHOTHERAPY, INSIGHT ORIENTED, BEHAVIOR MODIFYING AND/OR SUPPORTIVE, IN AN OFFICE OR OUTPATIENT FACILITY, APPROXIMATELY 45 TO 50 MINUTES [id number] WITH THE PATIENT 10/29/19 [facility] FITTING OF SPECTACLES, EXCEPT FOR APHAKIA; MONOFOCAL 10/16/19 12 [facility] INTERPRETATION OR EXPLANATION OF RESULTS OF PSYCHIATRIC, OTH MEDICAL EXAMS/PROCEDURES, OR OTH ACCUMULATED DATA TO FAMILY OR OTH RESPONSIBLE PERSONS,OR ADVISING THEM HOW TO ASSIST PATIENT 09/24/19 12 [facility] INTERACTIVE GROUP PSYCHOTHERAPY 09/16/19 12 [facility] INTERACTIVE GROUP PSYCHOTHERAPY 09/04/19 12 [facility] ALCOHOL AND/OR DRUG SERVICES; GROUP COUNSELING BY A CLINICIAN 09/02/19 12 [facility] ALCOHOL AND/OR DRUG SERVICES; GROUP COUNSELING BY A CLINICIAN 08/28/19 12 [facility] ALCOHOL AND/OR DRUG SERVICES; GROUP COUNSELING BY A CLINICIAN 08/26/19 12 [facility] ALCOHOL AND/OR DRUG SERVICES; GROUP COUNSELING BY A CLINICIAN 08/07/19 12 [facility] MEDICAL NUTRITION THERAPY; INITIAL ASSESSMENT AND INTERVENTION, INDIVIDUAL, [id number] WITH THE PATIENT, EACH 15 MINUTES 08/05/19 12 [facility] ALCOHOL AND/OR DRUG SERVICES; GROUP COUNSELING BY A CLINICIAN 07/29/19 12 [facility] ALCOHOL AND/OR DRUG SERVICES; GROUP COUNSELING BY A CLINICIAN 07/24/19 12 [facility] INTERPRETATION OR EXPLANATION OF RESULTS OF PSYCHIATRIC, OTH MEDICAL EXAMS/PROCEDURES, OR OT ACCUMULATED DATA TO FAMILY OR OTH RESPONSIBLE PERSONS,OR ADVISING THEM HOW TO ASSIST PATIENT 07/22/19 12 [facility] SIMPLE REPAIR OF SUPERFICIAL WOUNDS OF SCALP, NECK, AXILLAE, EXTERNAL GENITALIA, TRUNK AND/OR EXTREMITIES (INCLUDING HANDS AND FEET); 2.5 CM OR LESS 06/10/20 11 [facility] BEHAVIORAL HEALTH SCREENING TO DETERMINE ELIGIBILITY FOR ADMISSION TO TREATMENT PROGRAM 06/05/20 11 [facility] ALBUTEROL, INHALATION SOLUTION, FDA-APPROVED FINAL PRODUCT, NON-COMPOUNDED, ADMINISTERED THROUGH DME, UNIT DOSE, 1 MG 04/27/20 11 [facility] SCREENING TEST OF VISUAL ACUITY, QUANTITATIVE, BILATERAL 01/10/20 11 [facility] VISUAL FIELD EXAM,UNILAT/BI,INTERP &REP;EXT EXM(EG,GOLDMANN VIS FLD,AT LEAST 3 ISOP PLOT&STAT DET W/IN RHYS 30DEG/QUANT,AUTO THRSH LINDA,OCT G-1,32/42,HUMP VIS FLD ANAL FULL THRSH 30-2,24-2, OR 30/60-2) 01/10/20 11 [facility] SCANNING COMPUTERIZED OPHTHALMIC DIAGNOSTIC IMAGING, POSTERIOR SEGMENT, WITH INTERPRETATION AND REPORT, UNILATERAL OR BILATERAL; OPTIC NERVE 12/18/19 11 [facility] COMPUTERIZED CORNEAL TOPOGRAPHY, UNILATERAL OR BILATERAL, WITH INTERPRETATION AND REPORT 11/30/19 11 [facility] DESTRUCTION (EG, LASER SURGERY, ELECTROSURGERY, CRYOSURGERY, CHEMOSURGERY, SURGICAL CURETTEMENT), OF BENIGN LESIONS OTHER THAN SKIN TAGS OR CUTANEOUS VASCULAR PROLIFERATIVE LESIONS; UP TO 14 LESIONS 11/22/19 11 [facility] VISUAL FIELD EXAM,UNILAT/BI,INTERP &REP;EXT EXM(EG,GOLDMANN VIS FLD,AT LEAST 3 ISOP PLOT&STAT DET W/IN RHYS 30DEG/QUANT,AUTO THRSH LINDA,OCT G-1,32/42,HUMP VIS FLD ANAL FULL THRSH 30-2,24-2, OR 30/60-2) 05/31/20 10 [facility] VISUAL FIELD EXAM,UNILAT/BI,INTERP &REP;EXT EXM(EG,GOLDMANN VIS FLD,AT LEAST 3 ISOP PLOT&STAT DET W/IN RHYS 30DEG/QUANT,AUTO THRSH LINDA,OCT G-1,32/42,HUMP VIS FLD ANAL FULL THRSH 30-2,24-2, OR 3060-2) 05/28/20 10 [facility] COLLECTION OF VENOUS BLOOD BY VENIPUNCTURE 04/19/20 10 [facility] SCREENING TEST OF VISUAL ACUITY, QUANTITATIVE, BILATERAL 04/19/20 10 [facility] EAR PROTECTOR ATTENUATION MEASUREMENTS 04/19/20 10 [facility] COLLECTION OF VENOUS BLOOD BY VENIPUNCTURE 07/31/19 10 [facility] SCREENING TEST OF VISUAL ACUITY, QUANTITATIVE, BILATERAL 07/04/19 10 [facility] COLLECTION OF VENOUS BLOOD BY VENIPUNCTURE 07/04/19 10 [facility] Psychiatric Diagnostic Evaluation Review of Records and Reports Psychiatric Diagnostic Evaluation Review of Records and Reports [id number] 07/14/19 13 CAROLYN ABDALLA [facility] Psychiatric Therapy Preparation of Psychiatric Status Report Psychiatric Therapy Preparation of Psychiatric Status Report [id number] 07/14/19 13 CAROLYN ABDALLA [facility] Psychiatric Diagnostic Evaluation Comprehensive Examination Psychiatric Diagnostic Evaluation Comprehensive Examination [id number] 02/20/20 12 JOHNATHAN WILKERSON [facility] Psychiatric Therapy Preparation of Psychiatric Status Report Psychiatric Therapy Preparation of Psychiatric Status Report [id number] 02/19/20 12 FLORA KILLIAN [facility] Psychiatric Diagnostic Evaluation Review of Records and Reports Psychiatric Diagnostic Evaluation Review of Records and Reports [id number] 02/19/20 12 FLORA KILLIAN [facility] Clinical Social Work Counseling Marital 02/11/20 12 LULU MYERS [facility] Crutches, underarm, wood, adjustable or fixed, pair, with pads, tips and handgrips 01/12/20 12 DOC SANTIAGO [facility] Clinical Social Work Counseling Marital 01/10/20 12 LULU MYERS [facility] Clinical Social Work Counseling Marital 12/30/19 12 LULU MYERS [facility] Psychiatric Diagnostic Evaluation Review of Records and Reports Psychiatric Diagnostic Evaluation Review of Records and Reports [id number] 11/21/19 12 JENNIFER STRINGER [facility] Psychiatric Therapy Preparation of Psychiatric Status Report Psychiatric Therapy Preparation of Psychiatric Status Report [id number] 11/21/19 12 JENNIFER STRINGER [facility] Psychiatric Therapy Preparation of Psychiatric Status Report Psychiatric Therapy Preparation of Psychiatric Status Report [id number] 11/08/19 12 MADDIE NATION [facility] Psychiatric Diagnostic Evaluation Comprehensive Examination Psychiatric Diagnostic Evaluation Comprehensive Examination [id number] 11/08/19 12 MADDIE NATION [facility] Screening Test Of Visual Acuity, Quantitative, Bilateral Screening Test Of Visual Acuity, Quantitative, Bilateral [id number] 11/05/19 12 VERÓNICA REYNOLDS [facility] Audiogram (Screening) Audiogram (Screening) [id number] 11/05/19 12 FREDRICK HASSAN [facility] Audiometry Group Testing Audiometry Group Testing [id number] 11/05/19 12 FREDRICK HASSAN [facility] Clinical Social Work Individual Outpatient Counseling 45 Minutes Clinical Social Work Individual Outpatient Counseling 45 Minutes [id number] 10/29/19 12 JENNIFER STRINGER [facility] Spectacles Services Fitting Monofocal Except For Aphakia Spectacles Services Fitting Monofocal Except For Aphakia 66012 10/16/19 12 VERÓNICA REYNOLDS fit by tech [facility] Ophthalmological Prior Patient Start Comprehensive Care Ophthalmological Prior Patient Start Comprehensive Care [id number] 10/16/19 12 VERÓNICA REYNOLDS [facility] Determination Of Refractive State Determination Of Refractive State 69113 10/16/19 12 VERÓNICA REYNOLDS [facility] Scanning Computerized Ophthalmic Diagnostic Imaging Optic Nerve Scanning Computerized Ophthalmic Diagnostic Imaging Optic Nerve 51231 10/16/19 12 VERÓNICA REYNOLDS [facility] Psychiatric Therapy Counseling Family / Guardians Psychiatric Therapy Counseling Family / Guardians [id number] 09/24/19 12 MARIA DEL ROSARIO ANG E DoD Alcohol and/or drug services; group counseling by a clinician 09/16/19 12 MARIA DEL ROSARIO ANG E DoD Psychotherapy Group Interactive Psychotherapy Group Interactive [id number] 09/16/19 12 ASHIA HOPE E DoD Alcohol and/or drug services; group counseling by a clinician 09/12/19 12 MARIA DEL ROSARIO ANG E DoD Psychotherapy Group Interactive Psychotherapy Group Interactive [id number] 09/12/19 12 ASHIA HOPE E DoD Alcohol and/or drug services; group counseling by a clinician 09/06/19 12 ASHIA HOPE E DoD Psychotherapy Group Interactive Psychotherapy Group Interactive [id number] 09/06/19 12 ASHIA HOPE E DoD Alcohol and/or drug services; group counseling by a clinician 08/29/19 12 ASHIA HOPE E DoD Psychotherapy Group Interactive Psychotherapy Group Interactive [id number] 08/29/19 12 ASHIA HOPE E DoD Alcohol and/or drug services; group counseling by a clinician 08/26/19 12 MARIA DEL ROSARIO ANG E DoD Psychotherapy Group Interactive Psychotherapy Group Interactive [id number] 08/26/19 12 ANG, HOPE E DoD Psychiatric Therapy Counseling Family / Guardians Psychiatric Therapy Counseling Family / Guardians [id number] 08/06/19 12 MARIA DEL ROSARIO ANG Medical Nutrition Therapy Initial A e ment And Intervention Each 15 Minutes Medical Nutrition Therapy Initial Assessment And Intervention Each 15 Minutes [id number] 08/05/19 12 HARRY GWYN GIBBSDannielle Saez Alcohol and/or drug services; group counseling by a clinician 07/26/19 12 MARIA DEL ROSARIO ANG Psychotherapy Group Interactive Psychotherapy Group Interactive [id number] 07/26/19 12 MARIA DEL ROSARIO ANG Behavioral health screening to determine eligibility for admi ion to treatment program 06/07/20 11 MARIA DEL ROSARIO ANG Alcohol and/or drug a e ment 06/07/20 11 MARIA DEL ROSARIO ANG Psychiatric Diagnostic Evaluation Comprehensive Examination Psychiatric Diagnostic Evaluation Comprehensive Examination [id number] 06/07/20 11 MARIA DEL ROSARIO ANG Screening Test Of Visual Acuity, Quantitative, Bilateral Screening Test Of Visual Acuity, Quantitative, Bilateral 04512 01/10/20 11 OBI GALLEGOS Visual Chandler Test Extended Examination Visual Chandler Test Extended Examination [id number] 01/10/20 11 YANNI ALVARADO Ophthalmological Prior Patient Start Intermediate Level Care Ophthalmological Prior Patient Start Intermediate Level Care 80197 01/10/20 11 YANNI ALVARADO Scanning Computerized Ophthalmic Diagnostic Imaging Optic Nerve Scanning Computerized Ophthalmic Diagnostic Imaging Optic Nerve [id number] 12/18/19 11 YANNI ALVARADO Anterior Chamber Angles (Gonioscopy) Anterior Chamber Angles (Gonioscopy) 96168 12/18/19 11 YANNI ALVARADO Ophthalmological Prior Patient Start Comprehensive Care Ophthalmological Prior Patient Start Comprehensive Care 39485 12/18/19 11 YANNI ALVARADO Visual Chandler Test Extended Examination Visual Chandler Test Extended Examination [id number] 12/18/19 11 YANNI ALVARADO Computerized Corneal Topography Computerized Corneal Topography 67170 11/30/19 11 YANNI ALVARADO Determination Of Refractive State Determination Of Refractive State 92722 11/30/19 11 YANNI ALVARADO Corneal Pachymetry Both Eyes Corneal Pachymetry Both Eyes 62133 11/30/19 11 YANNI ALVARADO Ophthalmological New Patient Start Comprehensive Care Ophthalmological New Patient Start Comprehensive Care 88597 11/30/19 11 YANNI ALVARADO Destruct Of Benign Lesion By Any Method Second Through 14 11/22/19 11 FREDY RONNIE OLU Nadja Visual Chandler Test Extended Examination Visual Chandler Test Extended Examination 69707 05/31/20 10 VERÓNICA REYNOLDS Ophthalmological Prior Patient Start Intermediate Level Care Ophthalmological Prior Patient Start Intermediate Level Care 79534 05/31/20 10 VERÓNICA REYNOLDS Ophthalmological New Patient Start Comprehensive Care Ophthalmological New Patient Start Comprehensive Care 06204 05/28/20 10 VERÓNICA REYNOLDS Determination Of Refractive State Determination Of Refractive State 51452 05/28/20 10 VERÓNICA REYNOLDS Spectacles Services Fitting Monofocal Except For Aphakia Spectacles Services Fitting Monofocal Except For Aphakia 10916 05/28/20 10 VERÓNICA REYNOLDS Visual Chandler Test Extended Examination Visual Chandler Test Extended Examination 86102 05/28/20 10 VERÓNICA REYNOLDS Diagnostic Imaging Ocular Coherence Topography 05/28/20 10 VERÓNICA REYNOLDS Audiogram (Screening) Audiogram (Screening) 50232 04/19/20 10 ALLY BARRERA Audiometry Group Testing Audiometry Group Testing [id number] 04/19/20 10 ALLY BARRERA Ear Protector Attenuation Measurements Ear Protector Attenuation Measurements 49034 04/19/20 10 ALLY BARRERA Psychiatric Diagnostic Evaluation Comprehensive Examination Psychiatric Diagnostic Evaluation Comprehensive Examination 55263 12/07/19 09 KEITH KELLER Screening Test Of Visual Acuity, Quantitative, Bilateral Screening Test Of Visual Acuity, Quantitative, Bilateral 79165 12/01/19 09 PAM CHAUDHARY Influenza Virus Vaccine Intranasal Live Attenuated 05/02/20 08 MARGARITA SCHMITZ Immunization Admin By Intranasal / Oral Route One Vaccine Immunization Admin By Intranasal / Oral Route One Vaccine 16385 05/02/20 08 MARGARITA SCHMITZ Venipuncture Venipuncture 26854 05/02/20 08 MARGARITA SCHMITZ Hepatitis B Vaccine (Active) Adult Dosage 08/20/19 08 ZEB GENTILE Skin Test Anergy Tuberculin Intradermal Skin Test Anergy Tuberculin Intradermal 63080 08/20/19 08 ZEB GENTILE Anthrax Vaccine, For Subcutaneous Use 08/20/19 08 WESZEB MONTOYA [facility] Vaccines Vaccines [id number] 08/20/19 08 [facility] Administration By Injection, Each Additional Vaccine 08/20/19 08 [facility] Immunization Administration By Injection, One Vaccine Immunization Administration By Injection, One Vaccine 88771 08/20/19 08 ZEB GENTILE [facility] Health And Behav Intervention, Each Additional 15 Min Grp (2 Or More) Health And Behav Intervention, Each Additional 15 Min Grp (2 Or More) 31849 07/17/19 MEHDI KAMARA [facility] Influenza Split Virus Vaccine 0.5mL Dosage Intramuscular 05/04/20 07 [facility] Typhoid Vaccine Vi Capsular Polysaccharide, For Intramus Use Typhoid Vaccine Vi Capsular Polysaccharide, For Intramus Use [id number] 05/04/20 07 [facility] Immunization Administration By Injection, Each Additional Vaccine 05/04/[address] [place], [place] [address] Hepatitis A And Hepatitis B (Intramuscular Use) Adult Dosage Hepatitis A And Hepatitis B (Intramuscular Use) Adult Dosage 07196 05/04/20 07 [facility] Immunization Administration By Injection, One Vaccine Immunization Administration By Injection, One Vaccine [id number] 05/04/20 07 [facility] Physician Supervised Services Provision Of Educational Supplies Physician Supervised Services Provision Of Educational Supplies [id number] 03/06/20 07 ROXANA ACUNA [facility] Destruction Of Flat Warts By Cryosurgery Up To 14 Lesions 02/25/20 07 BUSTER JULIAN [facility] Destruction Of Flat Warts By Cryosurgery Up To 14 Lesions 02/12/20 07 KRISTI BEDOYA [facility] Destruction Of Flat Warts By Cryosurgery Up To 14 Lesions 02/06/20 07 KRISTI BEDOYA wart rx with liquis nitrogen [facility] Ear mold/insert, not disposable, any type 01/22/20 07 JEOVANY [facility] Ear Protector Attenuation Measurements Ear Protector Attenuation Measurements [id number] 01/22/20 07 [facility] Threshold Audiogram (Pure Tone) Threshold Audiogram (Pure Tone) [id number] 01/22/20 07 [facility] Audiometry Group Testing Audiometry Group Testing [id number] 01/22/20 07 [facility] Special Physician Services Analysis Of Computerized Data Special Physician Services Analysis Of Computerized Data [id number] 01/22/20 07 BASIL THAYER [facility] Physician Supervised Services Provision Of Special Supplies Physician Supervised Services Provision Of Special Supplies [id number] 01/22/20 07 BASIL THAYER [facility] Physician Supervised Group Educational Services 01/22/20 07 BASIL THAYER Destruct Of Premalignant Lesion By Any Method 2nd Through 14 01/17/20 07 BUSTER JULIAN Destruction Of Premalignant Lesion By Any Method One Lesion 01/17/20 07 BUSTER JULIAN Determination Of Refractive State Determination Of Refractive State 08824 12/20/19 07 TAMRA KAUR Spectacles Services Fitting Monofocal Except For Aphakia Spectacles Services Fitting Monofocal Except For Aphakia 60962 12/20/19 07 TAMRA KAUR Ophthalmological New Patient Start Intermediate Level Care Ophthalmological New Patient Start Intermediate Level Care 60650 12/20/19 07 TAMRA KAUR Social History Combined list of available smoking, tobacco, and other social history from 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 Social History Type Response Date Comment Source Tobacco smoking status [facility] VA-TOBACCO USER EVERY DAY 03/13/2021 BUSY History of tobacco use VA-TOBACCO USE > 15 LESS THAN 30 YEARS 03/13/2021 BUSY History of tobacco use VA-TOBACCO USER EVERY DAY 03/20/2020 BUSY History of tobacco use [facility]09[facility] [place] [facility] History [facility] tobacco use ORYX ADMIT TOBACCO SCREEN YES 03/03/2019 [facility] [place] [facility] History of tobacco use VA-TOBACCO USE LAUNDRY HELPER NO 03/03/2019 [facility] [place] [facility] History of tobacco use CT-TOBACCO USE LAUNDRY HELPER NO 01/21/2019 BUSY History of tobacco use CURRENT SMOKER 01/28/2018 [facility] BUSY History of tobacco use V1-PT NOT INTERESTED IN QUIT TOBACCO USE 10/29/2017 BUSY History of tobacco use CURRENT SMOKER 02/03/2017 BUSY History of tobacco use CURRENT SMOKER 08/16/2014 BUSY History of tobacco use V1-PT READY TO QUIT TOBACCO USE 06/07/2013 BUSY History of tobacco use QUIT TOBACCO USE IN PAST YEAR 08/21/2012 BUSY History of tobacco use QUIT TOBACCO USE IN PAST YEAR 07/07/2012 quit a month ago [facility] [place] This section is an empty social history section. [facility] Plan of Care List of future care activities from Department of 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 Additional future care activities may be listed in the Assessment and Plan section. Date/Time Care Activity [facility] 09/17/2024 AMBULATORY - MEDICINE AMBULATORY - MEDICI [facility]
[2024-10-19 11:41] VITALS: BP 141/68; PULSE 100; RESP 18; TEMP 36.7; O2SAT 100
[2024-10-19 11:48] VITALS: BMI 28.5
--- NOTE | 2024-10-19 12:06 | MHC.SHP ---
Pre-Procedural Eval Section A - 24 Hr Update-Section A only Date of Service: 10/19/24 The patient is an INPATIENT: No Changes since office visit: No Cold of Flu in the past 2 weeks, No New Medical Problems, No Changes in Medication and No Patient answered all questions The patient has been examined within 24 hours of the surgical procedure. The History & Physical has been completed within 30 days and I have reviewed it.: Yes Section B - Complete if H&P > 30 days Chief Complaint: Carpal tunnel syndrome, right upper limb Allergies: Allergies Allergy/AdvReac Type Severity Reaction Status Date / Time No Known Allergies Allergy Verified 10/19/24 11:46 Plan Diagnosis/Plan: Unchanged I have reviewed the history and physical and performed a pertinent physical examination on my patient. No changes have occurred unless specified. Time Spent With Patient Time: Total time managing care of this patient today ____ minutes.
--- NOTE | 2024-10-19 12:06 | W.PM.OPN ---
Operative Note Operative Note Date of Service: 10/19/24 Narrative: Preop diagnosis: 1. Right Carpal tunnel syndrome Postop diagnosis: same Procedure: 1. Right Carpal tunnel release Surgeon: Chen Ro MD Window Decorator: Dick STOVER Anesthesia: local block using 1% lidocaine with epinephrine Findings: Thickened transverse carpal ligament. EBL: Less than 5 mL Specimens: None Complications: None Disposition: Brought to recovery room in stable condition Plan: Follow-up for 10-14 days for wound check and suture removal Indications: The patient is 39 years old, with right carpal tunnel syndrome that has been unresponsive to nonoperative management. The risks and benefits of operative treatment including but not limited to risk of damage to blood vessels, nerves, tendons, infection, persistent pain, persistent symptoms, or possible need for additional surgery were discussed with the patient and the patient wishes to proceed with surgery. Procedure: Once consent was obtained a local block was performed using a combination of 1% lidocaine with epinephrine. The patient was then brought back to the operating suite and placed on the operative table in supine position. The right upper extremity was prepped and draped in a standard surgical fashion. Once assured that we had a good block, a 2.0 cm longitudinal incision was made centered over the carpal tunnel. The incision was made through the skin to the subcutaneous tissues using a #15 blade. Dissection was made down to the level of the transverse carpal ligament with care being taken to protect the palmar cutaneous nerve. Once the transverse carpal ligament was clearly visualized, a longitudinal incision was made in the transverse carpal ligament 1st using a #15 blade, then using tenotomy scissors under direct visualization. Care was taken to look for and protect the motor branch of the median nerve when seen in this area. Once satisfied with our carpal tunnel release the wound was copiously irrigated with normal saline and hemostasis was obtained with a brief period of local pressure. The skin edges were reapproximated with some 5.0 nylon suture material and a sterile dressing was applied. The patient appears to have tolerated the procedure well and with no complications. All digits were well vascularized at the conclusion of the case.
[2024-10-19 13:22] VITALS: BP 117/78; PULSE 85; RESP 18; TEMP 36.7; O2SAT 98
== END 2024-10-19 13:24 | disposition home or self-care (01) ==
PROVIDERS: Visit Provider Orthopaedic Surgery
PROC: (CPT 64721; principal; 2024-10-19 14:20)
DX: G56.01 Carpal tunnel syndrome, right upper limb (principal); F17.210 Nicotine dependence, cigarettes, uncomplicated
CPT/HCPCS: 64721; J0171; J2003

== ENCOUNTER → 2024-10-19 11:01 | Outpatient (BNV) | payer OTHER, SELFPAY | PROVIDERS: Visit Provider Orthopaedic Surgery | DX: G56.01 Carpal tunnel syndrome, right upper limb (principal) | CPT/HCPCS: 64721 ==

== ENCOUNTER 2024-11-03 10:23 | Outpatient (AMB) | payer OTHER, SELFPAY ==
--- NOTE | 2024-11-03 10:25 | A.OFFVIS_ITS ---
Intake Visit Reasons: PO RT CTR 10/19/24 [place] Intake Note: Landon 39 yr old male presents today for his P/O visit for his right hand CTR from 10/19/[address] Ro. States symptoms have improved, patient mentioned he is having discomfort due to stitches. Allergies No Known Allergies Allergy (Verified 11/03/24 10:29) HPI HPI PO RT CTR 10/19/24 AR: Details: Landon is a 39 year old right hand dominant man who presents S/ right carpal tunnel release, DOS: 10/19/24. 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 He has an stationary engineer apprentice who performs most of the physical labor duties for him. 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 Sutures removed and Steri-Strips applied Sensation is intact and normal in the right median nerve distribution Cap refill is brisk he can make a fist and extend all of his digits Nerve conduction study: IMPRESSION: 1. This is an abnormal study. 2. There is electrodiagnostic evidence for bilateral moderate-severe median neuropathy at the wrist, consistent with carpal tunnel syndrome. Right worse than left. 3. There is no electrodiagnostic evidence for ulnar neuropathy, brachial plexopathy, or cervical radiculopathy. Aisha Mark MD, DAVID 07/15/24 Psych Appearance: grossly normal Affect: normal affect Attitude: cooperative Assessment & Plan Assessment & Plan (1) Bilateral carpal tunnel syndrome: Code(s): G56.03 - Carpal tunnel syndrome, bilateral upper limbs Category: Medical Plan Assessment & Plan: 1. Right carpal tunnel syndrome, S/P release DOS: 10/19/24 Pre-operative symptoms intermittent, but daily, worse at night Now with normal sensation The patient appears to be doing well post-operatively I educated him about the post-operative course I explained the signs and symptoms of infection I discussed activity modifications, he is to lift nothing heavier than a cellphone for the next 2 weeks He will perform gentle ROM exercises at home He should avoid any underwater activities for the next 5 days He should gently massage about the incision site to reduce the risk of hypersensitivity He can follow up prn 2. Left carpal tunnel syndrome Symptoms intermittent, worse at night He will follow up to discuss treatment options at a later date Scribed for Chen oR MD by Andreas Pulliam medical receptionist, on 11/03/24 at 10:35 AM, EST. Coding Level of Care Code Global (20043) Diagnoses Bilateral carpal tunnel syndrome G56.03
--- OUTSIDE RECORDS SUMMARY | 2024-11-03 11:45 | XMS_ITS | Encounter Summary ---
Author Name [facility] [place] [facility] Address [address] [place] [address] Care Team Providers Care Decorative Engraver Apprentice Name Role Phone MARIA DEL CARMEN REYES Primary Care Provide r Unavailable Selected Encounter This section includes the information on record at [place] for the Encounter. Date/Time Encounter Type Encounter Description Reason Pro vider Source [facility] Encounter Template Text not used by [facility] Social History: Smoking Status (Most current) and Tobacco Use (All prior to encounter date) This section includes the most current, and the historical, smoking and tobacco- related health factors from the [facility] facility where the Encounter took place. Current Smoking Status This section includes the most current smoking, or tobacco-related health factor, from the [facility] facility where the Encounter took place. Date/Time Current Smoking Status Gala ruiz Jun 09, 2019 03:29 PM -BPR SMOKING DEP LOYMENT YES [facility] [place] [facility]
--- OUTSIDE RECORDS SUMMARY | 2024-11-03 11:45 | XMS_ITS | Encounter Summary ---
Author Name [facility] Address [address] [place] [address] Care Team Providers Care Kitchen And Bath Designer Name Role Phone MARIA DEL CARMEN REYES Primary Care Provide r Unavailable Selected Encounter This section includes the information on record at [place] for the Encounter. Date/Time Encounter Type Encounter Description Reason Pro vider Source Sep 10, 2024 11:00 AM Outpatient Encounter PRIMARY CARE/MEDICINE I[facility] Encounter Template Text not used by [place] Plan of Treatment: Future Appointments (+ 6 months) and Future Tests (+/- 45 days) The Plan of Treatment section includes future care activities for the patient from all [place] treatmentfacilities. This section includes future appointments and future orders which are active, pending or scheduled. Future Appointments This section includes appointments that were scheduled to occur 6 months from the date of the Encounter, up to a maximum of 20 appointments. The data comes from all [place] treatment facilities. Appointment Date/Time Appointment Type Appointme nt Facility Name November 19, 2024 10:30 AM [facility]BULATORY - MEDICINE [facility] Feb 02, 2025 10:00 AM [facility]ATORY - MEDICINE [facility] Active, Pending, and Scheduled Orders This section includes a listing of several types of active, pending, and scheduled orders, including clinic medications orders, diagnostic test orders, procedure orders and consult orders; where the start date of the order is 45 days before the date of the Encounter or 45 days after the date of theEncounter. The data comes from all [place] treatment [facility]. Test Date/Time Test Type Test Details Facility Name Oct 13, 2024 12:00 AM Laboratory - Chemi stry Order BASIC METABOLIC PANEL (fasting) BLOOD (SST-SERUM) [facility] Oct 13, 2024 12:00 AM Laboratory - Chemi stry Order LIPID PANEL FASTING BLOOD (SST-SERUM) [facility] Oct 13, 2024 12:00 AM Laboratory - Chemi stry Order LIVER FUNCTION BLOOD (SST-SERUM) [facility] Oct 13, 2024 12:00 AM Laboratory - Chemi stry Order CBC AND DIFF (AUTO) BLOOD (LAV-BLOOD) [facility] Oct 13, 2024 12:00 AM Laboratory - Chemi stry Order HEMOGLOBIN A1C PANEL BLOOD (LAV-BLOOD) [facility] Oct 13, 2024 12:00 AM Laboratory - Chemi stry Order TSH BLOOD (SST-SERUM) [facility] Social History: Smoking Status (Most current) and Tobacco Use (All prior to encounter date) This section includes the most current, and the historical, smoking and tobacco- related health factors from the [place] facility where the Encounter took place. Current Smoking Status This section includes the most current smoking, or tobacco-related health factor, from the [place] facility where the Encounter took place. Date/Time Current Smoking Status Comment [facility] Mar 13, 2021 12:30 PM VA-TOBACCO USER EVERY DAY [facility] Tobacco Use History This section includes a history of the smoking, or tobacco-related health factors, that were collected on or before the date of the Encounter. The data comes from the [place] facility where the Encounter took place. Date/Time Smoking Status/Tobac co Use Comment [facility] Mar 13, 2021 12:30 PM VA-TOBACCO USE ADVICE [facility] Mar 13, 2021 12:30 PM VA-TOBACCO USE ENTERTAINMENT USHER YES [facility] 14, 2021 12:30 PM VA-TOBACCO USE MED NOTIFY PROVIDER Chantix worked well, but due to MH flad of suicidal ideation he was told not an option. He states he feels stable mentally and wishes to use the chantix again [facility] 14, 2021 12:30 PM VA-TOBACCO USE WI 30 MIN OF WAKEUP [facility] 14, 2021 12:30 PM VA-TOBACCO USER EVERY DAY [facility] 21, 2020 11:30 AM VA-TOBACCO DOESNT USE WI 30 MIN WAKEUP [facility] 21, 2020 11:30 AM VA-TOBACCO USE 5 TO 15 YEARS [facility] Mar 20, 2020 11:30 AM VA-TOBACCO USE ADVICE [facility] Mar 20, 2020 11:30 AM VA-TOBACCO USE ENTERTAINMENT USHER NO [facility] Mar 20, 2020 11:30 AM VA-TOBACCO USE MED NO [facility] Mar 20, 2020 11:30 AM VA-TOBACCO USER EVERY DAY [facility] Jun 09, 2019 03:29 PM AH-BPR SMOKING DEPLOYMENT YES [facility] Jan 21, 2019 09:02 AM VA-TOBACCO DOESNT USE WI 30 MIN WAKEUP [facility] Jan 21, 2019 09:02 AM VA-TOBACCO USE 5 TO 15 YEARS [facility] Jan 21, 2019 09:02 AM VA-TOBACCO USE ADVICE [facility] Jan 21, 2019 09:02 AM VA-TOBACCO USE ENTERTAINMENT USHER NO [facility] Jan 21, 2019 09:02 AM VA-TOBACCO USE MED NO [facility] Jan 21, 2019 09:02 AM VA-TOBACCO USER EVERY DAY [facility] Jan 28, 2018 12:07 PM CURRENT SMOKER vaps [facility] October 29, 2017 02:53 PM V1-PT NOT INTERESTED IN QUIT TOBACCO USE [facility] Feb 03, 2017 03:21 PM CURRENT SMOKER [facility] Feb 03, 2017 03:21 PM V1-PT READY TO QUIT TOBACCO USE [facility] Feb 03, 2017 03:21 PM V1-TOBACCO CESS MEDS NOT PRESCRIBED Pt wants to meet with smoking cessation counselor first [facility] Aug 16, 2014 09:40 AM CURRENT SMOKER [facility] Aug 16, 2014 09:40 AM V1-PT READY TO QUIT TOBACCO USE [facility] Aug 16, 2014 09:40 AM V1-TOBACCO CESS MEDS NOT PRESCRIBED borderline struggling with depression [facility] Jun 07, 2013 03:53 PM V1-PT READY TO QUIT TOBACCO USE [facility] Aug 21, 2012 01:47 PM QUIT TOBACCO USE IN PAST YEAR [facility] Encounter Notes: All associated encounter notes This section contains the clinical notes associated to the Encounter. Date/Time Encounter Note(s) Provider Source Sep 03, 2024 04:15 PM ADMINISTRATIVE NOT E: LOCAL TITLE: ADMINISTRATIVE NOTE STANDARD TITLE: ADMINISTRATIVE NOTE DATE OF NOTE: SEP 03, 2024@16:15 ENTRY DATE: SEP 03, 2024@16:15:05 AUTHOR: ROBERTO CARLOS BARAJAS EXP COSIGNER: URGENCY: STATUS: COMPLETED [facility] [address] [place] [phone] * [phone] * [facility] [address] [place] [id number] Date: SEP 03, 2024 re: This is a reminder of your upcoming PCP appt with . Appointment Date: Aug@11:00 Appointment Type: In-person visit Fasting blood work NON fasting blood work CONFIRMED APPPT WITH THE Sincerely, Office Staff for: Primary Care Provider [facility] [address] [address] T [phone] Upcoming Appointments: 09/10/2024 11:00 SPR PACT 5 MD 09/17/2024 13:00 [facility] OPTOMETRY 3 APPOINTMENT [facility] (SPOPC OR SO = [address]) (GOPC OR GO = [address]) ([facility] or NO = [facility]) (VVC - Video Call) (Tel-X Telephone Visit) ( - Telehealth) /scot/ ROBERTO CARLOS FAUST Signed: 09/03/2024 16:15 ROBERTO CARLOS BARAJAS [facility]
--- OUTSIDE RECORDS SUMMARY | 2024-11-03 11:45 | XMS_ITS | Continuity of Care Document ---
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 [facility] [...] LEYDI GARCIA Comment: Diagnosed and treated by [facility] ER on 11/29/2016 [facility] Thoracic back pain Active Condition [facility] Tobacco user Active Condition Jun 07, 2013 Entered By: BECK TATE Comment: 0.5ppd [facility] Aftercare Following Surgery For Injury / Trauma Inactive Condition DoD joint pain, localized in the knee Active Condition DoD OPEN WOUND OF THE KNEE LEFT Inactive Condition DoD lack of adequate sleep Active Condition DoD HUMAN PAPILLOMA VIRUS INFECTION Active Condition DoD ACUTE BRONCHITIS Inactive Condition DoD MARITAL PROBLEM Inactive Condition DoD OTHER SPECIFIED FAMILY CIRCUMSTANCES Active Condition DoD PREGLAUCOMA OPEN ANGLE WITH BORDERLINE FINDINGS Active Condition DoD HEADACHE SYNDROMES Active Condition DoD Intervention And Counseling On Cessation Of Tobacco Use Active Condition DoD Body Mass Index Inactive Condition DoD OBESITY Active Condition DoD Patient Education - Dietary Active Condition DoD Observation For Suspected Medical Condition Inactive Condition DoD NO PSYCHIATRIC DIAGNOSIS OR CONDITION ON AXIS I Active Condition DoD Observation For Suspected Condition Inactive Condition DoD ANKLE SPRAIN LEFT Inactive Condition DoD PREGLAUCOMA Active Condition DoD SCAR Active Condition DoD ACNE Inactive Condition DoD NICOTINE DEPENDENCE Active Condition DoD tobacco use Active Condition DoD PREGLAUCOMA OPEN ANGLE WITH CUPPING OF OPTIC DISCS Active Condition DoD REFRACTIVE ERROR - HYPERMETROPIA Active Condition DoD ASTIGMATISM - REGULAR Active Condition DoD Patient Education - Proper Use Of Medications Inactive Condition DoD visit for: routine eye exam Inactive Condition DoD ABRASION OR FRICTION BURN Inactive Condition DoD COSTOCHONDRITIS (TIETZE'S SYNDROME) Inactive Condition DoD CELLULITIS OF THE RIGHT HAND Inactive Condition DoD HAND SPRAIN RIGHT Inactive Condition DoD visit for: services physical separation Active Condition DoD visit for: laboratory Active Condition DoD visit for: screening exam pulmonary tuberculosis Active Condition DoD Vaccines Prophylactic Need Against Bacterial Diseases Active Condition DoD Vaccines Prophylactic Need Against Smallpox Active Condition DoD Need For Vaccination Hepatitis B Active Condition DoD visit for: services physical Active Condition DoD Cognitive Skills - Judgement Activities Inactive Condition DoD Vaccines Prophylactic Need Against Influenza Inactive Condition DoD Need For Vaccination Typhoid Active Condition DoD Vaccines Prophylactic Need Against Combinations Of Diseases Active Condition DoD Patient Education - Injury Prevention Inactive Condition DoD Anticipatory Guidance: Alcohol Use Inactive Condition DoD Anticipatory Guidance: Tobacco Use Active Condition DoD Anticipatory Guidance: Unsafe Sexual Practices Inactive Condition DoD Patient Counseling: Active Condition DoD visit for: administrative purpose Inactive Condition DoD visit for: follow-up exam Inactive Condition DoD WARTS GENITAL Inactive Condition DoD visit for: ears / hearing exam Active Condition DoD ASSESSMENT OF PATIENT CONDITION WORK-RELATED Inactive Condition DoD CONDYLOMA ACUMINATUM Active Condition will use liquid nitrogen on these to treat DoD COMMON COLD Inactive Condition DoD REFRACTIVE ERROR Active Condition DoD visit for: services physical [...] Site Reaction Lot Number CVX Code Drug Application Support Status Comments Source FLU,3 YRS (HISTORICAL) 2016 88 complet ed [facility] DTAP, UNSPECIFIED FORMULATION 2014 107 complet ed [facility] FLU,3 YRS (HISTORICAL) 2011 88 complet ed [facility] FLU,3 YRS (HISTORICAL) 2011 88 complet ed Miliatry [facility] tetanus toxoid, reduced diphtheria toxoid, and acellular pertu is vaccine, adsorbed 1 2011 LAQUITA ARREGUIN [id number] [place] [address] ([facility]) complet ed tetanus toxoid, reduced diphtheri a toxoid, and acellular pertussis vaccine, adsorbed DoD influenza virus vaccine, live, attenuated, for intranasal use 1 2010 [id number] Unknown (UNK) comple t ed influenza virus vaccine, live, attenuate d, for intranasa l use DoD influenza virus vaccine, split virus (incl. purified surface antigen)-reti red CODE 1 2009 [id number] Sanofi Pasteur (PMC) complet ed influenza virus vaccine, split virus (incl. purified surface antigen)- retired CODE DoD anthrax vaccine 6 2009 [id number] Unknown (UNK) comple t ed anthrax vaccine DoD PNEUMOCOCCAL, UNSPECIFIED FORMULATION 2009 109 complet ed . [facility] anthrax vaccine 5 2009 [id number] [employer] ([facility]) complet ed anthrax vaccine DoD typhoid Vi capsular polysaccharid e vaccine 1 2009 [id number] Sanofi Pasteur (PMC) complet ed typhoid Vi capsular polysacch aride vaccine DoD DTAP, UNSPECIFIED FORMULATION 2009 107 complet ed [facility] Novel influenza-H1N 1-09, injectable 1 2008 [id number] [employer] (NOV) complet ed Novel influenza -S7U5-55, injectabl e DoD influenza virus vaccine, live, attenuated, for intranasal use 1 2008 [id number] 111 NP [employer]. (MED) complet ed influenza virus vaccine, live, attenuate d, for intranasa l use DoD influenza virus vaccine, live, attenuated, for intranasal use 1 2008 [id number] 111 [employer]. (MED) complet ed influenza virus vaccine, live, attenuate d, for intranasa l use DoD influenza virus vaccine, live, attenuated, for intranasal use 1 2007 [id number] 111 Unknown (UNK) comple t ed influenza virus vaccine, live, attenuate d, for intranasa l use DoD anthrax vaccine 4 2007 [id number] 24 [employer] (MIP) complet ed anthrax vaccine DoD anthrax vaccine 3 2007 [id number] Unknown (UNK) comple t ed anthrax vaccine DoD anthrax vaccine 2 2007 [id number] 24 [employer] (MIP) complet ed anthrax vaccine DoD hepatitis A vaccine, adult dosage 3 2007 [id number] 52 Unknown (UNK) comple t ed hepatitis A vaccine, adult dosage DoD anthrax vaccine 1 2007 ZEB GENTILE [id number] 24 [employer] Lee (MIP) complet ed anthrax vaccine DoD hepatitis B vaccine, adult dosage 2 2007 ZEB GENTILE [id number] 43 SmithKline (SKB) complet ed hepatitis B vaccine, adult dosage DoD vaccinia (smallpox) vaccine 1 2007 ZEB GENTILE [id number] [employer] (WAL) complet ed vaccinia (smallpox ) vaccine DoD tuberculin skin test; purified protein derivative solution, intradermal 1 2007 ZEB GENTILE [id number] 96 [place] (PD) complet ed tuberculi n skin test; purified protein derivativ e solution, intraderm al DoD influenza virus vaccine, split virus (incl. purified surface antigen)-reti red CODE 1 2006 [id number] 15 [employer]Kline (SKB) complet ed influenza virus vaccine, split virus (incl. purified surface antigen)- retired CODE DoD typhoid Vi capsular polysaccharid e vaccine 1 2006 [id number] Sanofi Pasteur ([facility]) complet ed typhoid Vi capsular polysacch aride vaccine DoD hepatitis A and hepatitis B vaccine 2 2006 [id number] 104 [employer] (SKB) complet ed hepatitis A and hepatitis B vaccine DoD poliovirus vaccine, inactivated 1 2006 [id number] 10 Sanofi Pasteur ([facility]) complet ed polioviru s vaccine, inactivat ed [...] diphtheria toxoid conjugate vaccine (MCV4P) 1 2006 [id number] 114 Sanofi Pasteur ([facility]) complet ed meningoco ccal polysacch aride (groups A, C, Y and W-135) diphtheri a toxoid conjugate vaccine (MCV4P) DoD tetanus toxoid, reduced diphtheria toxoid, and acellular pertu is vaccine, adsorbed 1 2006 [id number] 115 Sanofi Pasteur ([facility]) complet ed tetanus toxoid, reduced diphtheri [...] Source [employer](PES Optometry -Trainee) OUTPATIENT [id number] YARIEL CAN 12/19 Released w/o Limitations [employer](P ES Optomet ry-Kyree nee) [employer](TMC Ambulator y) OUTPATIENT [id number] TESS STEPHENSON 01/09 Released w/o Limitations [employer](T MC Ambulat ory) [employer](TMC Ambulator y) OUTPATIENT [id number] BUSTER JULIAN 01/16 Released w/o Limitations [employer](T MC Ambulat ory) [employer](IEP Hearing Conservat ion) OUTPATIENT [id number] BASIL THAYER 01/21 Released w/o Limitations [employer](I EP Hearing Conserv ation) [employer](TMC Ambulator y) OUTPATIENT [id number] MARCELA MELÉNDEZ 02/05 Released w/o Limitations [employer](T MC Ambulat ory) [employer](TMC Ambulator y) OUTPATIENT [id number] KOBE SANDHU 02/11 Released w/o Limitations [employer](T MC Ambulat ory) [employer](TMC Ambulator y) OUTPATIENT [id number] F/U ANANT LINDQUIST 02/18 Released w/o Limitations [employer](T MC Ambulat ory) [employer](TMC Ambulator y) OUTPATIENT [id number] BUSTER JULIAN 02/24 Released w/o Limitations [employer](T MC Ambulat ory) BERNADETTE Whatron([facility]) OUTPATIENT [id number] SELF CARE CLASS ROXANA ACUNA 03/05 Released w/o Limitations BERNADETTE Pino([facility]) BERNADETTE Wharton([facility] OUTPATIENT [id number] PT HERE FOR IMMUN CLINIC ONLY/[facility] VICENTE MAGALLON 04/29 Released w/o Limitations BERNADETTE Pino(Inte rnal [facility] e [facility]) [facility]) OUTPATIENT [id number] flu shot ZEB GENTILE 07/13 [facility] w[facility] Limitations [facility]) [facility]) OUTPATIENT [id number] INPROC MEHDI KAMARA 07/17 Released w/o Limitations [facility](ZZZ [facility]) [facility](ZZZ VSK Primary Care) OUTPATIENT [id number] PETRA FISHER 08/10 Released w/o Limitations [facility](ZZZ VSK Primary Care) [facility](ZZZ VSK Primary Care) OUTPATIENT [id number] f/u STD PETRA MAYERS 08/18 Released w/o Limitations [facility]Z [facility]SK Primary Care) [facility]Z VSK Primary Care) OUTPATIENT [id number] ZEB GENTILE 08/20 Released w/o Limitations [facility] Primary Care) [facility] OUTPATIENT [id number] 02/12 Released w/o Limitations Theater Facilit y [facility](VSK Pre/Post Deploymen t) OUTPATIENT [id number] CATARINA BYRNE 04/30 Released w/o Limitations [facility](VSK Pre/Pos t Deploym ent) [facility]SK Optometry ) OUTPATIENT [id number] chapter PAM Mcfadden 11/30 Released w/o Limitations [facility](VSK Optomet ry) [facility](1AD 2CR 6TH [place]) OUTPATIENT [id number] chapter CATARINA Elkins 12/15 Released w/o Limitations [facility](1AD 2CR 6TH [place] N) [facility](1AD 2CR 6TH [place]) OUTPATIENT [id number] infecte d R hand KARISSA LOZANO 03/08 Immediate Referral [facility](1AD 2CR 6TH [place] N) [facility](1AD 2CR 6TH [place]) OUTPATIENT [id number] d/c KARISSA LOZANO 03/09 Released w/o Limitations [facility](1AD 2CR 6TH [place] N) [facility] OUTPATIENT [id number] 11/03 Released w/o Limitations Theater [facility] OUTPATIENT [id number] 12/15 Released w/o Limitations Theater Facilit y [facility](Hearin g Conservat ion 2) OUTPATIENT [id number] Hearing Exam FREDRICK HASSAN L 04/19 Released w/o Limitations [facility](Hear ing Conserv ation 2) [facility]) OUTPATIENT [id number] eye exam GAIL VERÓNICA K 05/28 Released w/o Limitations [facility]) [facility]) OUTPATIENT [id number] visual field24 -2 BRIGITTE REYNOLDSMichelle Hewitt 05/31 Released w/o Limitations [facility]ry [facility]) JINA Weber([facility]) OUTPATIENT [id number] Tobacco Program Rep MARGARITA Marx 08/06 Released w/o Limitations [facility] Weber([facility]) [facility](Aviati on Clinic) OUTPATIENT [id number] REFERRA L TO DERM MORENO OLIVEIRA 09/28 Released w/o Limitations [facility](Avia tion Clinic) [facility](Dermat ology Clinic) OUTPATIENT [id number] Genital warts RONNIE DANIEL 11/21 Released w/o Limitations [facility](Derm atology Clinic) [facility](Ophtha lmology Clinic) OUTPATIENT [id number] PRK Screen YANNI ALVARADO 11/29 Released w/o Limitations [facility](Opht halmolo gy Clinic) [facility]htha lmology Clinic) OUTPATIENT [id number] per Dr. Alvarado v/f 30-2 Fast YANNI ALVARADO 12/17 Released w/o Limitations [facility](Opht halmolo gy Clinic) [facility]htha lmology Clinic) OUTPATIENT [id number] per Dr. Alvarado V/F ...use cyclo RX YANNI ALVARADO 01/09 Released w/o Limitations [facility](Opht halmolo gy Clinic) [facility] Weber(Deploy ment) OUTPATIENT [id number] PDHRA/V VALENTINE HILLJOSELITO PRINCESS Tucker 01/09 Released w/o Limitations [facility](Depl oyment) JINA Weber([facility] on [facility]) OUTPATIENT [id number] Ankle Pain MORENO OLIVEIRA 04/18 Released with Work/Duty Limitations [facility]) OUTPATIENT [id number] MARGARITA FARMER 04/27 Released w/o Limitations [facility]) [facility] Weber([facility] JAYSHREE Level 1) OUTPATIENT [id number] EVAL MARIA DEL ROSARIO ANG E 06/05 Released w/o Limitations [facility](CO M JAYSHREE Level 1) JINA Weber([facility]) OUTPATIENT [id number] YISEL JACOBS 06/10 Released w/o Limitations [facility]) [facility] JAYSHREE Level 1) OUTPATIENT [id number] rtm MARIA DEL ROSARIO ANG E 07/22 Released w/o Limitations [facility](IMCO M JAYSHREE Level 1) [facility]AY[facility]REE Level 1) OUTPATIENT [id number] grp MARIA DEL ROSARIO ANG E 07/25 Released w/o Limitations [facility](IMCO M JAYSHREE Level 1) [facility](Clinic al Dietetics ) OUTPATIENT [id number] self referre d weight managem ent GWYN MCDONALD 08/05 Released w/o Limitations JINA Weber(Clin ical Dieteti cs) WatsonJINA Richey([facility] JAYSHREE Level 1) OUTPATIENT [id number] [facility] 08/08 Released w/o Limitations Watson JINA Armijo(IMCO M JAYSHREE Level 1) Watson JINA Armijo([facility] JAYSHREE Level 1) OUTPATIENT [id number] [facility] 08/15 Released w/o Limitations Watson JINA Armijo(IMCO M JAYSHREE Level 1) Watson JINA Armijo([facility] JAYSHREE Level 1) OUTPATIENT [id number] [facility] 08/26 Released w/o Limitations Watson JINA Armijo(IMCO M JAYSHREE Level 1) WatsonJINA Richey([facility]AYSHREE Level 1) OUTPATIENT [id number] [facility] Released w/o Limitations Watson JINA Armijo(IMCO M JAYSHREE Level 1) WatsonJINA Richey([facility]AY[facility]REE Level 1) OUTPATIENT [id number] [facility] 09/01 Released w/o Limitations Watson JINA Armijo(IMCO M JAYSHREE Level 1) WatsonJINA Richey([facility] JAYSHREE Level 1) OUTPATIENT [id number] [facility] 09/03 Released w/o Limitations WatsonJINA Richey(IMCO M JAYSHREE Level 1) WatsonJINA Richey([facility] JAYSHREE Level 1) OUTPATIENT [id number] [facility] 09/15 Released w/o Limitations Watson JINA Armijo(IMCO M JAYSHREE Level 1) WatsonJINA Richey([facility] JAYSHREE Level 1) OUTPATIENT [id number] [facility] 09/23 Released w/o Limitations WatsonJINA Richey(IMCO M JAYSHREE Level 1) WatsonJINA Richey([facility]) OUTPATIENT [id number] Tobacco cessati on [facility] 10/06 Released w/o Limitations JINA Weber([facility]) JINA Weber(Aviati on Clinic) OUTPATIENT [id number] headach e LUIS GUDINO Aby 10/13 Released w/o Limitations [facility](Avia tion Clinic) [facility]) OUTPATIENT [id number] eye exam GAIL VERÓNICA K 10/15 Released w/o Limitations [facility]ry [facility]) JINA Weber([facility] M01C WTT 3) OUTPATIENT [id number] Chapter 14-12C HORTENSIA CLANCY 11/04 Released w/o Limitations JINA Weber([facility] M01C WTT 3) J[facility]) OUTPATIENT [id number] chapter VERÓNICA Salvador 11/04 Released w/o Limitations [facility]) J[facility] Weber(Hearin g Conservat ion 2) OUTPATIENT [id number] Hearing Exam FREDRICK HASSAN 11/04 Released w/o Limitations [facility](Hear ing Conserv ation 2) [facility] OUTPATIENT [id number] DOC SANTIAGO 11/24 Sick at Home/Quarter s [facility]INA Weber([facility]) JINA Weber([facility]iati on Clinic) OUTPATIENT [id number] part 2 CHAPTER physicMORENO Momin 12/02 Released w/o Limitations JINA [facility]ia tion Clinic) [facility]) OUTPATIENT [id number] cyst on head WILIAN MANZANARES 01/08 Released w/o Limitations [facility]) [facility] OUTPATIENT [id number] FREDRICK MARTIN 01/10 Released w/o Limitations [facility]) [facility] OUTPATIENT [id number] DOC SANTIAGO 01/11 Released w/o Limitations JINA Weber([facility]) JINA Weber([facility]) OUTPATIENT [id number] mitali jaimes f/u MORENO OLIVEIRA 01/13 Released with Work/Duty Limitations JINA Weber([facility]) [facility] Encounter [id number] DEBBIE UNGER 11/16 [facility] En[facility] [id number] 12/09 [facility] En[facility] [id number] 12/09 [facility] En[facility] [id number] 05/12 [facility] [id number] 05/12 [facility] En[facility] [id number] 06/11 [facility] [id number] 07/08 [facility] En[facility] [id number] 07/12 [facility] [place] Outpatient [facility]counter [id number] 09/10 [place] [facility] En[facility] [id number] 09[facility] Procedures Combined list of: 1) Procedures from Department of Veterans Affairs facilities going back up to thelast 18 months, not all VA non-surgical procedures are included; 2) All procedures from the Department of Defense facilities. Procedure Procedure Type Code Date Perfomer Comments Sour e INFLUENZA VIRUS VACCINE, TRIVALENT (IIV3), SPLIT VIRUS, 0.5 ML DOSAGE, FOR INTRAMUSCULAR USE 04/29/20 07 [facility] EDUCATIONAL SUPPLIES, SUCH BOOKS, TAPES, AND PAMPHLETS, FOR THE PATIENT'S EDUCATION AT COST TO PHYSICIAN OR OTHER QUALIFIED HEALTH AIRLINE RADIO OPERATOR 03/05/20 07 [facility] DESTRUCTION OF LESION(S), PENIS (EG, CONDYLOMA, PAPILLOMA, MOLLUSCUM CONTAGIOSUM, HERPETIC VESICLE), SIMPLE; CRYOSURGERY 02/25/20 07 [facility] DESTRUCTION (EG, LASER SURGERY, ELECTROSURGERY, CRYOSURGERY, CHEMOSURGERY, SURGICAL CURETTEMENT), OF BENIGN LESIONS OTHER THAN SKIN TAGS OR CUTANEOUS VASCULAR PROLIFERATIVE LESIONS; UP TO 14 LESIONS 02/12/20 07 [facility]D DESTRUCTION (EG, LASER SURGERY, ELECTROSURGERY, CRYOSURGERY, CHEMOSURGERY, SURGICAL CURETTEMENT), OF BENIGN LESIONS OTHER THAN SKIN TAGS OR CUTANEOUS VASCULAR PROLIFERATIVE LESIONS; UP TO 14 LESIONS 02/06/20 07 [facility] PHYS/OTH QUALIFIED HEALTH AIRLINE RADIO OPERATOR QUALIFIED,EDUCATION,T RAIN,LICENSURE/REGULA TION (WHEN APPLICABLE) EDUC SER RENDERED TO PATS IN A GRP SETTING (EG,,OBESITY, OR DIABETIC INSTRUCT) 01/22/20 07 [facility] DESTRUCT (EG, LASER SURGERY, ELECTROSURGERY, CRYOSURGERY, CHEMOSURGERY, SURGICAL CURETTEMENT), PREMALIGNANT LESIONS (EG, ACTINIC KERATOSES); 2ND THRU 14 LESIONS, EA (LIST SEP ADDITION CD, 1ST LESION) 01/17/20 07 [facility] DETERMINATION OF REFRACTIVE STATE 12/20/19 07 [facility] PSYCHIATRIC DIAGNOSTIC INTERVIEW EXAMINATION 12/06/19 09 [facility] SCREENING TEST OF VISUAL ACUITY, QUANTITATIVE, BILATERAL 12/01/19 09 [facility] COLLECTION OF VENOUS BLOOD BY VENIPUNCTURE 04/30/20 08 [facility] IMMUNIZATION ADMINISTRATION (INCLUDES PERCUTANEOUS, INTRADERMAL, SUBCUTANEOUS, OR INTRAMUSCULAR INJECTIONS); 1 VACCINE (SINGLE OR COMBINATION VACCINE/TOXOID) 08/20/19 08 [facility] HEALTH AND BEHAVIOR INTERVENTION, EACH 15 MINUTES, GLIP-NM-SEVL; GROUP (2 OR MORE PATIENTS) 07/08/19 08 [facility] PSYCHIATRIC EVALUATION OF HOSPITAL RECORDS, OTHER PSYCHIATRIC REPORTS, PSYCHOMETRIC AND/OR PROJECTIVE TESTS, AND OTHER ACCUMULATED DATA FOR MEDICALDIAGNOSTIC PURPOSES 03/26/20 12 [facility] PREPARATION OF REPORT OF PATIENT'S PSYCHIATRIC STATUS, HISTORY, TREATMENT, OR PROGRESS (OTHER THAN FOR LEGAL OR CONSULTATIVE PURPOSES) FOR OTHER INDIVIDUALS, AGENCIES, OR INSURANCE CARRIERS 02/19/20 12 [facility] PSYCHIATRIC DIAGNOSTIC INTERVIEW EXAMINATION 02/13/20 12 [facility] FAMILY PSYCHOTHERAPY (CONJOINT PSYCHOTHERAPY) (WITH PATIENT PRESENT), 50 MINUTES 02/10/20 12 [facility] CRUTCHES UNDERARM, WOOD, ADJUSTABLE OR FIXED, PAIR, WITH PADS, TIPS AND HANDGRIPS 01/12/20 12 [facility] SIMPLE REPAIR OF SUPERFICIAL WOUNDS OF SCALP, NECK, AXILLAE, EXTERNAL GENITALIA, TRUNK AND/OR EXTREMITIES (INCLUDING HANDS AND FEET); 20.1 CM TO 30.0 CM 01/11/20 12 [facility] FAMILY PSYCHOTHERAPY (CONJOINT PSYCHOTHERAPY) (WITH PATIENT PRESENT), 50 MINUTES 01/10/20 12 [facility] FAMILY PSYCHOTHERAPY (CONJOINT PSYCHOTHERAPY) (WITH PATIENT PRESENT), 50 MINUTES 12/30/19 12 [facility] PSYCHIATRIC EVALUATION OF HOSPITAL RECORDS, OTHER PSYCHIATRIC REPORTS, PSYCHOMETRIC AND/OR PROJECTIVE TESTS, AND OTHER ACCUMULATED DATA FOR MEDICALDIAGNOSTIC PURPOSES 11/20/19 12 [facility] PREPARATION OF REPORT OF PATIENT'S PSYCHIATRIC STATUS, HISTORY, TREATMENT, OR PROGRESS (OTHER THAN FOR LEGAL OR CONSULTATIVE PURPOSES) FOR OTHER INDIVIDUALS, AGENCIES, OR INSURANCE CARRIERS 11/07/19 12 [facility] AUDIOMETRIC TESTING OF GROUPS 11/05/19 [facility] SCREENING TEST OF VISUAL ACUITY, QUANTITATIVE, BILATERAL 11/05/19 12 [facility] INDIVIDUAL PSYCHOTHERAPY, INSIGHT ORIENTED, BEHAVIOR MODIFYING AND/OR SUPPORTIVE, IN AN OFFICE OR OUTPATIENT FACILITY, APPROXIMATELY 45 TO 50 MINUTES [id number] WITH THE PATIENT 10/29/19 12 [facility] FITTING OF SPECTACLES, EXCEPT FOR APHAKIA; MONOFOCAL 10/16/19 12 [facility] INTERPRETATION OR EXPLANATION OF RESULTS OF PSYCHIATRIC, OTH MEDICAL EXAMS/PROCEDURES, OR OTH ACCUMULATED DATA TO FAMILY OR OTH RESPONSIBLE PERSONS,OR ADVISING THEM HOW TO ASSIST PATIENT 09/24/19 12 [facility] INTERACTIVE GROUP PSYCHOTHERAPY 09/16/19 12 [facility] INTERACTIVE GROUP PSYCHOTHERAPY 09/04/19 12 [facility] ALCOHOL AND/OR DRUG SERVICES; GROUP COUNSELING BY A CLINICIAN 09/02/19 12 [facility] ALCOHOL AND/OR DRUG SERVICES; GROUP COUNSELING BY A CLINICIAN 08/28/19 12 [facility] ALCOHOL AND/OR DRUG SERVICES; GROUP COUNSELING BY A CLINICIAN 08/26/19 12 [facility] ALCOHOL AND/OR DRUG SERVICES; GROUP COUNSELING BY A CLINICIAN 08/07/19 12 [facility] MEDICAL NUTRITION THERAPY; INITIAL ASSESSMENT AND INTERVENTION, INDIVIDUAL, MREQ-ER-MYOC WITH THE PATIENT, EACH 15 MINUTES 08/05/19 [facility] ALCOHOL AND/OR DRUG SERVICES; GROUP COUNSELING BY A CLINICIAN 07/29/19 12 [facility] ALCOHOL AND/OR DRUG SERVICES; GROUP COUNSELING BY A CLINICIAN 07/24/19 12 [facility] INTERPRETATION OR EXPLANATION OF RESULTS OF PSYCHIATRIC, OTH MEDICAL EXAMS/PROCEDURES, OR OTH ACCUMULATED DATA TO FAMILY OR OTH RESPONSIBLE PERSONS,OR ADVISING THEM HOW TO ASSIST PATIENT 07/22/19 12 [facility] SIMPLE REPAIR OF SUPERFICIAL WOUNDS OF SCALP, NECK, AXILLAE, EXTERNAL GENITALIA, TRUNK AND/OR EXTREMITIES (INCLUDING HANDS AND FEET); 2.5 CM OR LESS 06/10/20 11 [facility] BEHAVIORAL HEALTH SCREENING TO DETERMINE ELIGIBILITY FOR ADMISSION TO TREATMENT PROGRAM 06/05/20 11 [facility] ALBUTEROL, INHALATION SOLUTION, FDA-APPROVED FINAL PRODUCT, NON-COMPOUNDED, ADMINISTERED THROUGH DME, UNIT DOSE, 1 MG 04/27/20 11 [facility] SCREENING TEST OF VISUAL ACUITY, QUANTITATIVE, BILATERAL 01/10/20 11 [facility] VISUAL FIELD EXAM,UNILAT/BI,INTERP &REP;EXT EXM(EG,GOLDMANN VIS FLD,AT LEAST 3 ISOP PLOT&STAT DET W/IN RHYS 30DEG/QUANT,AUTO THRSH LINDA,OCT G-1,32/42,HUMP VIS FLD ANAL FULL THRSH 30-2,24-2, OR 30/60-2) 01/10/20 11 [facility] SCANNING COMPUTERIZED OPHTHALMIC DIAGNOSTIC IMAGING, POSTERIOR SEGMENT, WITH INTERPRETATION AND REPORT, UNILATERAL OR BILATERAL; OPTIC NERVE 12/18/19 11 [facility] COMPUTERIZED CORNEAL TOPOGRAPHY, UNILATERAL OR BILATERAL, WITH INTERPRETATION AND REPORT 11/30/19 11 [facility] DESTRUCTION (EG, LASER SURGERY, ELECTROSURGERY, CRYOSURGERY, CHEMOSURGERY, SURGICAL CURETTEMENT), OF BENIGN LESIONS OTHER THAN SKIN TAGS OR CUTANEOUS VASCULAR PROLIFERATIVE LESIONS; UP TO 14 LESIONS 11/22/19 11 [facility] VISUAL FIELD EXAM,UNILAT/BI,INTERP &REP;EXT EXM(EG,GOLDMANN VIS FLD,AT LEAST 3 ISOP PLOT&STAT DET W/IN RHYS 30DEG/QUANT,AUTO THRSH LINDA,OCT G-1,32/42,HUMP VIS FLD ANAL FULL THRSH 30-2,24-2, OR 30/60-2) 05/31/20 10 [facility] VISUAL FIELD EXAM,UNILAT/BI,INTERP &REP;EXT EXM(EG,GOLDMANN VIS FLD,AT LEAST 3 ISOP PLOT&STAT DET W/IN RHYS 30DEG/QUANT,AUTO THRSH LINDA,OCT G-1,32/42,HUMP VIS FLD ANAL FULL THRSH 30-2,24-2, OR 30/60-2) 05/28/20 10 [facility] SCREENING TEST OF VISUAL ACUITY, QUANTITATIVE, BILATERAL 04/19/20 10 [facility] COLLECTION OF VENOUS BLOOD BY VENIPUNCTURE 04/19/20 10 [facility] EAR PROTECTOR ATTENUATION MEASUREMENTS 04/19/20 10 [facility] COLLECTION OF VENOUS BLOOD BY VENIPUNCTURE 07/31/19 10 [facility] COLLECTION OF VENOUS BLOOD BY VENIPUNCTURE 07/04/19 10 [facility] SCREENING TEST OF VISUAL ACUITY, QUANTITATIVE, BILATERAL 07/04/19 10 [facility] Psychiatric Evaluation Review of Records and Reports Psychiatric Evaluation Review of Records and Reports [id number] 07/14/19 13 CAROLYN ABDALLA [facility] Psychiatric Therapy Preparation of Psychiatric Status Report Psychiatric Therapy Preparation of Psychiatric Status Report [id number] 07/14/19 13 CAROLYN ABDALLA [facility] Psychiatric Evaluation Comprehensive Examination Psychiatric Evaluation Comprehensive Examination [id number] 02/20/20 12 JOHNATHAN WILKERSON [facility] Psychiatric Therapy Preparation of Psychiatric Status Report Psychiatric Therapy Preparation of Psychiatric Status Report [id number] 02/19/20 12 FLORA KILLIAN [facility] Psychiatric Evaluation Review of Records and Reports Psychiatric Evaluation Review of Records and Reports [id number] 02/19/20 12 FLORA KILLIAN [facility] Clinical Social Work Counseling Marital 02/11/20 12 LULU MYERS [facility] Crutches, underarm, wood, adjustable or fixed, pair, with pads, tips and handgrips 01/12/20 12 DOC SANTIAGO [facility] Clinical Social Work Counseling Marital 01/10/20 12 LULU MYERS [facility] Clinical Social Work Counseling Marital 12/30/19 12 LULU MYERS [facility] Psychiatric Evaluation Review of Records and Reports Psychiatric Evaluation Review of Records and Reports [id number] 11/21/19 12 JENNIFER STRINGER [facility] Psychiatric Therapy Preparation of Psychiatric Status Report Psychiatric Therapy Preparation of Psychiatric Status Report [id number] 11/21/19 12 JENNIFER STRINGER [facility] Psychiatric Therapy Preparation of Psychiatric Status Report Psychiatric Therapy Preparation of Psychiatric Status Report [id number] 11/08/19 12 MADDIE NATION [facility] Psychiatric Evaluation Comprehensive Examination Psychiatric Evaluation Comprehensive Examination [id number] 11/08/19 12 MADDIE NATION [facility] Screening Test Of Visual Acuity, Quantitative, Bilateral Screening Test Of Visual Acuity, Quantitative, Bilateral 25466 11/05/19 12 VERÓNICA REYNOLDS [facility] Audiogram (Screening) Audiogram (Screening) [id number] 11/05/19 12 FREDRICK HASSAN Audiometry Group Testing Audiometry Group Testing [id number] 11/05/19 12 FREDRICK HASSAN Social Work Individual Outpatient Counseling 45-50 Minutes Social Work Individual Outpatient Counseling 45-50 Minutes [id number] 10/29/19 12 JENNIFER STRINGER [facility] Fitting Monofocals (Not For Aphakia) [facility] Fitting Monofocals (Not For Aphakia) 57641 10/16/19 12 VERÓNICA REYNOLDS fit by tech [facility] Ophthalmological Prior Patient Start Comprehensive Care Ophthalmological Prior Patient Start Comprehensive Care 60356 10/16/19 12 VERÓNICA REYNOLDS [facility] Determination Of Refractive State Determination Of Refractive State 78444 10/16/19 12 VERÓNICA REYNOLDS [facility] Scanning Computerized Ophthalmic Diagnostic Imaging Optic Nerve Scanning Computerized Ophthalmic Diagnostic Imaging Optic Nerve 73486 10/16/19 12 VERÓNICA REYNOLDS [facility] Psychiatric Therapy Counseling Family / Guardians Psychiatric Therapy Counseling Family / Guardians 58353 09/24/19 12 ANG, HOPE E [facility] Alcohol and/or drug services; group counseling by a clinician 09/16/19 12 ANG, HOPE E [facility] Psychiatric Therapy Group (Interactive) Psychiatric Therapy Group (Interactive) [id number] 09/16/19 12 ANG, HOPE E [facility] Alcohol and/or drug services; group counseling by a clinician 09/12/19 12 ANG, HOPE E [facility] Psychiatric Therapy Group (Interactive) Psychiatric Therapy Group (Interactive) [id number] 09/12/19 12 ANG, HOPE E [facility] Alcohol and/or drug services; group counseling by a clinician 09/06/19 12 ASHIA HOPE E [facility] Psychiatric Therapy Group (Interactive) Psychiatric Therapy Group (Interactive) 62206 09/06/19 12 ASHIA MARIA DEL ROSARIO Spicer [facility] Alcohol and/or drug services; group counseling by a clinician 08/29/19 12 ANG MARIA DEL ROSARIO Spicer [facility] Psychiatric Therapy Group (Interactive) Psychiatric Therapy Group (Interactive) [id number] 08/29/19 12 ANG MARIA DEL ROSARIO Spicer [facility] Alcohol and/or drug services; group counseling by a clinician 08/26/19 12 ANG MARIA DEL ROSARIO Spicer [facility] Psychiatric Therapy Group (Interactive) Psychiatric Therapy Group (Interactive) [id number] 08/26/19 12 ANG MARIA DEL ROSARIO Spicer [facility] Psychiatric Therapy Counseling Family / Guardians Psychiatric Therapy Counseling Family / Guardians 78419 08/06/19 12 ANG MARIA DEL ROSARIO Spicer [facility] Medical Nutrition Therapy Initial A e ment, Intervention Medical Nutrition Therapy Initial Assessment, Intervention 27023 08/05/19 12 GWYN MCDONALD [facility] Alcohol and/or drug services; group counseling by a clinician 07/26/19 12 ANG MARIA DEL ROSARIO Spicer [facility] Psychiatric Therapy Group (Interactive) Psychiatric Therapy Group (Interactive) [id number] 07/26/19 12 ANG MARIA DEL ROSARIO Spicer [facility] Behavioral health screening to determine eligibility for admi ion to treatment program 06/07/20 11 ANG MARIA DEL ROSARIO Spicer [facility] Alcohol and/or drug a e ment 06/07/20 11 ANG MARIA DEL ROSARIO Spicer [facility] Psychiatric Evaluation Comprehensive Examination Psychiatric Evaluation Comprehensive Examination [id number] 06/07/20 11 ANG MARIA DEL ROSARIO Spicer [facility] Screening Test Of Visual Acuity, Quantitative, Bilateral Screening Test Of Visual Acuity, Quantitative, Bilateral 37089 01/10/20 11 OBI GALLEGOS [facility] Visual Chandler Test Extended Examination Visual Chandler Test Extended Examination [id number] 01/10/20 11 YANNI ALVARADO Ophthalmological Prior Patient Start Intermediate Level Care Ophthalmological Prior Patient Start Intermediate Level Care [id number] 01/10/20 11 YANNI ALVARADO Scanning Computerized Ophthalmic Diagnostic Imaging Optic Nerve Scanning Computerized Ophthalmic Diagnostic Imaging Optic Nerve 73213 12/18/19 11 YANNI ALVARADO Anterior Chamber Angles (Gonioscopy) Anterior Chamber Angles (Gonioscopy) 66393 12/18/19 11 YANNI ALVARADO Ophthalmological Prior Patient Start Comprehensive Care Ophthalmological Prior Patient Start Comprehensive Care 95626 12/18/19 11 YANNI ALVARADO Visual Chandler Test Extended Examination Visual Chandler Test Extended Examination [id number] 12/18/19 11 YANNI ALVARADO Computerized Corneal Topography Computerized Corneal Topography 81442 11/30/19 11 YANNI ALVARADO Determination Of Refractive State Determination Of Refractive State 52746 11/30/19 11 YANNI ALVARADO Corneal Pachymetry Both Eyes Corneal Pachymetry Both Eyes 93082 11/30/19 11 YANNI ALVARADO Ophthalmological New Patient Start Comprehensive Care Ophthalmological New Patient Start Comprehensive Care 36796 11/30/19 11 YANNI ALVARADO Destruct Of Benign Lesion By Any Method Second Through 14 11/22/19 11 RONNIE DANIEL Visual Chandler Test Extended Examination Visual Chandler Test Extended Examination [id number] 05/31/20 10 VERÓNICA REYNOLDS Ophthalmological Prior Patient Start Intermediate Level Care Ophthalmological Prior Patient Start Intermediate Level Care 08859 05/31/20 10 VERÓNICA REYNOLDS Ophthalmological New Patient Start Comprehensive Care Ophthalmological New Patient Start Comprehensive Care 93131 05/28/20 10 VERÓNICA REYNOLDS Determination Of Refractive State Determination Of Refractive State 50036 05/28/20 10 VERÓNICA REYNOLDS [facility] Fitting Monofocals (Not For Aphakia) [facility] Fitting Monofocals (Not For Aphakia) 62187 05/28/20 10 VERÓNICA REYNOLDS Visual Chandler Test Extended Examination Visual Chandler Test Extended Examination 41894 05/28/20 10 VERÓNICA REYNOLDS Diagnostic Imaging Ocular Coherence Topography 05/28/20 10 VERÓNICA REYNOLDS Audiogram (Screening) Audiogram (Screening) [id number] 04/19/20 10 ALLY BARRERA [facility]ometry Group Testing Audiometry Group Testing 06809 04/19/20 10 ALLY BARRERA Ear Protector Attenuation Measurements Ear Protector Attenuation Measurements 36564 04/19/20 10 ALLY BARRERA Psychiatric Evaluation Comprehensive Examination Psychiatric Evaluation Comprehensive Examination 10504 12/07/19 09 KEITH KELLER Screening Test Of Visual Acuity, Quantitative, Bilateral Screening Test Of Visual Acuity, Quantitative, Bilateral 66625 12/01/19 09 PAM CHAUDHARY Influenza Virus Vaccine Live Intranasal 05/02/20 08 MARGARITA SCHMITZ Immunization Admin By Intranasal / Oral Route One Vaccine Immunization Admin By Intranasal / Oral Route One Vaccine [id number] 05/02/20 08 MARGARITA SCHMITZ [facility] Venipuncture Venipuncture 15048 05/02/20 08 MARGARITA SCHMITZ [facility] Hepatitis B Vaccine (Active); 20 Years and Above 08/20/19 08 [facility] Skin Test Anergy Tuberculin Intradermal Skin Test Anergy Tuberculin Intradermal 10879 08/20/19 08 [facility] Anthrax Vaccine, For Subcutaneous Use 08/20/19 08 [facility] Vaccines Vaccines 33845 08/20/19 08 [facility] Immunization Administration Each Additional Vaccine 08/20/19 08 [facility] Immunization Administration One Vaccine Immunization Administration One Vaccine 15762 08/20/19 08 [facility] Health And Behav Intervention, Each 15 Min Grp (2 Or More) Health And Behav Intervention, Each 15 Min Grp (2 Or More) 96162 07/17/19 08 MEHDI KAMARA [facility] Influenza Split Virus Vaccine Age 3+ Years Intramuscular 05/04/20 JOHN PHAN [facility] Typhoid Vaccine Vi Capsular Polysaccharide, For Intramus Use Typhoid Vaccine Vi Capsular Polysaccharide, For Intramus Use 49353 05/04/20 [facility] Immunization Administration Each Additional Vaccine 05/04/20 EMILIEHERNANDEZIE Luis [facility] Hepatitis A And Hepatitis B (Intramuscular Use) Adult Dosage Hepatitis A And Hepatitis B (Intramuscular Use) Adult Dosage 23687 05/04/20 [facility] Immunization Administration One Vaccine Immunization Administration One Vaccine [id number] 05/04/20 EMILIEJOHN [facility] -Supervised Services Provision Of Educational Supplies -Supervised Services Provision Of Educational Supplies [id number] 03/06/20 07 ROXANA ACUNA [facility] Destruction Of Flat Warts By Cryosurgery Up To 14 Lesions 02/25/20 07 BUSTER JULIAN [facility] Destruction Of Flat Warts By Cryosurgery Up To 14 Lesions 02/12/20 07 KRISTI BEDOYA [facility] Destruction Of Flat Warts By Cryosurgery Up To 14 Lesions 02/06/20 07 KRISTI BEDOYA wart rx with liquis nitrogen [facility] Ear mold/insert, not disposable, any type 01/22/20 07 [facility] Ear Protector Attenuation Measurements Ear Protector Attenuation Measurements [id number] 01/22/20 07 [facility] Threshold Audiogram (Pure Tone) Threshold Audiogram (Pure Tone) [id number] 01/22/20 07 [facility] Audiometry Group Testing Audiometry Group Testing [id number] 01/22/20 07 [facility] Special Services Analysis Of Computerized Data Special Services Analysis Of Computerized Data [id number] 01/22/20 07 [facility] -Supervised Services Provision Of Special Supplies -Supervised Services Provision Of Special Supplies [id number] 01/22/20 [address] [facility] -Supervised Group Educational Services 01/22/20 [address] [facility] Destruct Of Premalignant Lesion By Any Method 2nd Through 14 01/17/20 07 BUSTER JULIAN Destruction Of Premalignant Lesion By Any Method One Lesion 01/17/20 07 BUSTER JULIAN Determination Of Refractive State Determination Of Refractive State 59657 12/20/19 07 TAMRA KAUR [facility] Fitting Monofocals (Not For Aphakia) [facility] Fitting Monofocals (Not For Aphakia) 30593 12/20/19 07 TAMRA KAUR [facility] Ophthalmological New Patient Start Intermediate Level Care Ophthalmological New Patient Start Intermediate Level Care 30660 12/20/19 07 TAMRA KAUR [facility] Social History Combined list of available smoking, tobacco, and other social history from 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 Social History Type Response Date Comment Source Tobacco smoking status [facility] VA-TOBACCO USER EVERY DAY 03/13/2021 [place] History of tobacco use VA-TOBACCO USE > 15 LESS THAN 30 YEARS 03/13/2021 [place] History of tobacco use VA-TOBACCO USER EVERY DAY 03/20/2020 [place] History of tobacco use CURRENT SMOKER 06/09/2019 [facility] History of tobacco use ORYX ADMIT TOBACCO SCREEN YES 03/03/2019 [facility] History of tobacco use VA-TOBACCO USE RESEARCH PHYSICIAN NO 03/03/2019 [facility] History of tobacco use VA-TOBACCO USE RESEARCH PHYSICIAN NO 01/21/2019 [place] History of tobacco use CURRENT SMOKER 01/28/2018 vaps [place] History of tobacco use V1-PT NOT INTERESTED IN QUIT TOBACCO USE 10/29/2017 [place] History of tobacco use CURRENT SMOKER 02/03/2017 [place] History of tobacco use CURRENT SMOKER 08/16/2014 [place] History of tobacco use V1-PT READY TO QUIT TOBACCO USE 06/07/2013 [place] History of tobacco use QUIT TOBACCO USE IN PAST YEAR 08/21/2012 [place] History of tobacco use QUIT TOBACCO USE IN PAST YEAR 07/07/2012 quit a month ago [facility] This section is an empty social history section. DoD Plan of Care List of future care activities from Department of 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 Additional future care activities may be listed in the Assessment and Plan section. Date/Time Care Activity Care Activity Detail Dennisi jennyfer 11/19/2024 AMBULATORY - MEDICINE AMBULATORY - MEDICI FILOMENA [place]
== END 2024-11-03 10:42 | disposition home or self-care (01) ==
LOC: HO.HOS 10:23
PROVIDERS: Referring Provider Orthopaedic Surgery; Visit Provider Orthopaedic Surgery
DX: G56.03 Carpal tunnel syndrome, bilateral upper limbs (principal)
CPT/HCPCS: 99024

== ENCOUNTER → 2024-11-03 10:23 | Outpatient (BNVA) | payer OTHER, SELFPAY | PROVIDERS: Visit Provider Orthopaedic Surgery | DX: G56.02 Carpal tunnel syndrome, left upper limb (principal); Z48.811 Encounter for surgical aftercare following surgery on the nervous system; Z98.890 Other specified postprocedural states | CPT/HCPCS: 99212 ==

== ENCOUNTER 2025-01-02 22:38 | Emergency (ER) | payer OTHER, SELFPAY ==
--- NOTE | ~2025-01-02 | XR_ITS ---
CLINICAL HISTORY: pain and edema 3 view right foot Comparison: None provided Findings: Nondisplaced fractures of the base of the 5th metatarsal. No dislocation. No ankle effusion. 4 mm radiopaque foreign body between the 1st and 2nd metatarsals. IMPRESSION: 1. Nondisplaced fracture of the fifth metatarsal base. 2. 4 mm radiopaque foreign body between first and second metatarsals. This document has been electronically signed by: Davonte Zaman MD on 01/02/2025 23:59:48
--- NOTE | ~2025-01-02 | XR_ITS ---
CLINICAL HISTORY: pain and edema 3 view right ankle Comparison: None provided Findings: Nondisplaced fractures of the base of the 5th metatarsal. No dislocation. Ankle mortise is intact. No ankle effusion. 4 mm radiopaque foreign body between the 1st and 2nd metatarsals. IMPRESSION: Nondisplaced fractures of the base of the 5th metatarsal. This document has been electronically signed by: Davonte Zaman MD on 01/03/2025 00:01:11
[2025-01-02 22:49] VITALS: BP 132/81; PULSE 92; RESP 18; TEMP 37.1; O2SAT 98; BMI 28.9
--- NOTE | 2025-01-03 02:02 | ED.LOWEXIN ---
HPI - Extremity Injury (Lower) General Chief Complaint: Extremity Injury, Lower Stated Complaint: snapped something in right foot Time Seen by Provider: 01/03/25 01:01 Source: patient Mode of arrival: wheelchair Limitations: no limitations History of Present Illness ED Provider: Dr. Jill Ortiz HPI Narrative: Previously healthy 39 year old male presenting with R foot pain that began while walking last night. Twisted his foot awkardly and heard a popping and was unable to walk on it afterward due to pain. No other injury or pain. Ankle is not painful. Toes have no pain/numbness/tingling. Denies other injury. Had been feeling well prior to stumbling. Denies illness, including fevers or chills, cough, or cold type symptoms, known sick? contacts or travel. MD complaint: foot injury Related Data Allergies Allergy/AdvReac Type Severity Reaction Status Date / Time No Known Allergies Allergy Verified 01/02/25 22:49 Review of Systems Review of Systems: Yes all other systems are reviewed and are negative (as per HPI) [facility] Past Medical History Attestation statement: The following information was validated with the patient. (uses nicotine regularly, denies illicit substance use.) Medical History (Updated 01/04/25 @ 00:01 by Kizzy Resendez) No known health problems Surgical History No pertinent past surgical history Social History Social History Are you a primary home health care provider to a significant other at home: No Do you presently have visiting nurse or other home services: No Alcohol intake: never Patient Tobacco Use Status: Current everyday Tobacco user Tobacco use type: Cigarette Cigarette Packs Per Day: 0.5 Cigarettes Per Day: 10.0 Substance Use Type: Marijuana Advance Directives: No Advance Directives Information Provided: No Current occupational status: employed 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 SKIN: Normal skin color for ethnicity, no rashes noted. HEENT:? Normocephalic, atraumatic, no stridor, EOMI. CHEST: Heart regular rate and rhythm, no murmurs, symmetric chest rise and fall. PULMONARY: Clear to auscultation bilaterally, no labored breathing, no wheezes/rhales/rhonchi. ABDOMINAL: Soft, nondistended, nontender, positive bowel sounds in all quadrants. : Deferred. MUSCULOSKELETAL: Normal tone, limited ROM in the R foot secondary to pain, TTP over the R 5th proximal MTP, neurovascularly intact distally, no deformities, no peripheral edema. NEURO: Alert and oriented x3, CN II through XII intact, equal strength and sensation bilateral upper and lower extremities, no focal neurologic deficits.? PSYCHIATRIC: Normal affect, fluid speech, good eye contact and appropriate demeanor. Medications Administered Discontinued Medications Generic Name Dose Route Start Last Admin Trade Name Freq PRN Reason Stop Dose Admin Ibuprofen 600 mg 01/03/25 02:05 01/03/25 02:11 Ibuprofen 600 Mg Tablet PO 01/03/25 02:06 600 mg ONCE ONE Administration Medical Decision Making Medical Decision Making MDM Narrative: Patient presents today with musculoskeletal injury. Differential diagnosis includes fracture, soft tissue contusion, ligamentous injury, tendon injury, infection, laceration, among others. Patient is neurovascularly intact upon arrival to the emergency department.? Based on physical exam, appropriate imaging was ordered. XR shows evidence of R 5th metatarsal fx. Medicated for pain, placed in walking boot. Ortho follow up. Differential Diagnosis Differential Diagnoses: The differential diagnosis associated with the presentation includes (as above) Independent Interpretation I performed an independent interpretation of an: Plain X-Ray Interpretation: 5th metatarsal fx, nondisplaced Radiology Impression Discussion of test interpretation with radiology: I have reviewed the radiologist's reading. Prescription Management I considered prescription management with: Pain Medication Discharge Plan Discharge Clinical Impression: Fracture of fifth metatarsal bone of right foot Patient Disposition: Home, Self-Care Instructions: Foot Fracture in Adults (ED) Additional Instructions: Follow-up with the orthopedic surgeon as soon as possible. Wear your walking boot if you have to be on your feet. Try to stay off your feet as much as possible. Use ice and elevation to help with swelling. Take Motrin and Tylenol around the clock for pain. Return to the emergency department with any new or worsening symptoms. Referrals: Baldomero Cornejo MD [Physician, Orthopedics] Referral Note: Call for an appointment as soon as possible regarding your fractured foot. Clinical Impression: Fracture of fifth metatarsal bone of right foot Interventions: ED Discharge Assessment Last Done: 01/03/25 02:20 Discharge Date/Time: 01/03/25 02:21 Print Language: Nepali
[2025-01-03 02:20] VITALS: BP 115/88; PULSE 80; RESP 20; TEMP 36.4; O2SAT 98
== END 2025-01-03 02:21 | disposition home or self-care (01) ==
PROVIDERS: Emergency Provider Emergency Medicine
DX: S92.351A Displaced fracture of fifth metatarsal bone, right foot, initial encounter for closed fracture (principal); M25.571 Pain in right ankle and joints of right foot; F17.210 Nicotine dependence, cigarettes, uncomplicated; X50.1XXA Overexertion from prolonged static or awkward postures, initial encounter; Y93.01 Activity, walking, marching and hiking; Y92.9 Unspecified place or not applicable; Y99.8 Other external cause status
CPT/HCPCS: 73610; 73630; 99283; 99284

== ENCOUNTER → 2025-01-02 22:58 | Outpatient (BNV) | payer OTHER, SELFPAY | PROVIDERS: Emergency Provider Emergency Medicine; Visit Provider Radiology Diagnostic Radiology | DX: S92.354A Nondisplaced fracture of fifth metatarsal bone, right foot, initial encounter for closed fracture (principal); S90.851A Superficial foreign body, right foot, initial encounter | CPT/HCPCS: 73610; 73630 ==

== ENCOUNTER 2025-01-14 00:47 | Emergency (ER) | payer OTHER, SELFPAY ==
[2025-01-14 00:50] VITALS: BP 126/84; PULSE 99; RESP 17; TEMP 36.6; O2SAT 98; BMI 28.1
--- NOTE | 2025-01-14 02:11 | ED.DENTAL ---
HPI - Dental/Oral General Chief complaint: Dental/Oral Stated complaint: Dental infection Time Seen by Provider: 01/14/25 01:55 Source: patient Mode of arrival: ambulatory Limitations: no limitations History of Present Illness ED Provider: Dr. Vanessa Up HPI Narrative: Patient comes to the emergency room complaining of dental pain on the left mandibular side. Patient states that he has had a cracked tooth for over a year. However, this morning it started swelling and becoming more painful. Patient denies fever chills Related Data Previous Rx's ?Medication ?Instructions ?Recorded amoxicillin 500 mg tablet 500 mg PO TID 7 days #21 tabs 01/14/25 ketorolac 10 mg tablet 10 mg PO Q8H PRN pain #12 tabs 01/14/25 tramadol 50 mg tablet 50 mg PO BID PRN pain #5 tabs 01/14/25 Allergies Allergy/AdvReac Type Severity Reaction Status Date / Time No Known Allergies Allergy Verified 01/14/25 00:51 Review of Systems Review of Systems: Constitutional : No Weight loss, No Fever, No Chills, No Night Sweats, No Fatigue, No Malaise ENT/Mouth : Complaining of dental pain left mandibular side, No Hearing loss, No Ear Pain, No Nasal Congestion, No Sinus Pain, No Hoarseness, No sore throat, No Rhinorrhea, No Swallowing Difficulty Eyes: No Eye Pain, No Swelling, No Redness, No Foreign Body, No Discharge, No Vision Changes Cardiovascular : No Chest Pain, No SOB, No Dyspnea on Exertion, No Orthopnea, No Edema, No Palpitations Respiratory : No Cough, No Sputum, No Wheezing, No Smoke Exposure, No Dyspnea Gastrointestinal : No Nausea, No Vomiting, No Diarrhea, No Constipation, No abdominal Pain, No Hematochezia, No Melena Genitourinary : no irregular bleeding, No Dysuria, No Urinary Frequency, No Hematuria, No Urinary Incontinence, No Urgency, No Flank Pain, No Urinary Flow Changes, No Hesitancy Musculoskeletal : No joint pain, No Myalgias, No Joint Swelling Skin : No Skin Lesions, No rash Neuro : No Weakness, No Numbness, No Paresthesias, No Loss of Consciousness, No Dizziness, No Headache Psych : No Anxiety/Panic, No Depression, No SI/HI/AH/VH, No Social Issues, Heme/Lymph: No Bruising, No Bleeding,No Lymphadenopathy Endocrine : No Polyuria, No Polydipsia, No Temperature Intolerance [facility] Past Medical History Medical History No known health problems Surgical History No pertinent past surgical history Social History Social History Are you a primary career development associate to a significant other at home: No Do you presently have visiting nurse or other home services: No Alcohol intake: never Patient Tobacco Use Status: Current everyday Tobacco user Tobacco use type: Cigarette Cigarette Packs Per Day: 0.5 Cigarettes Per Day: 10.0 Smoked in Last 30 Days: Yes Use of substances other than those prescribed or required for medical reasons: Yes Substance Use Type: Marijuana Advance Directives: No Advance Directives Information Provided: Yes Do you have a plan to hurt others: No Plan Current occupational status: employed 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 Oriented X3. No acute distress. Eyes: Pupils equal, round and reactive to light. ENT: Pharynx normal. Patient has an abscess in the left mandibular side. Neck: Normal inspection. Neck supple. No lymph nodes noted. No crepitus CVS: Normal heart rate and rhythm. Pulses normal. Normal S1 and S2 Respiratory: No respiratory distress. Breath sounds normal. No Wheezing. No rales Abdomen: Soft and nontender. No rigidity. No distention. Skin: Skin warm and dry. Normal skin color. Normal skin turgor. Extremities: No lower extremity edema. No Lacerations. No Rash Neuro: Oriented X 3. No motor deficit. No sensory deficit. Moving all extremities. No slurred speech. CN 2 through 12 grossly intact Psych: calm, cooperative, normal affect Vital Signs: Vital Signs: Last Vital Signs Temp 98.0 F 01/14/25 02:22 Pulse 85 01/14/25 02:22 Resp 17 01/14/25 02:22 BP 118/71 01/14/25 02:22 Pulse Ox 97 01/14/25 02:22 O2 Del Method Room Air 01/14/25 02:22 BMI result Body Mass Index 28.1 Course Course Course Narrative: Patient comes with dental pain and swelling. I discussed the physical exam with the patient, patient has an abscess. Medications Administered Discontinued Medications Generic Name Dose Route Start Last Admin Trade Name Toy PRN Reason Stop Dose Admin Amoxicillin 500 mg 01/14/25 02:11 01/14/25 02:19 Amoxicillin 500 Mg Capsule PO 01/14/25 02:12 500 mg ONCE ONE Administration Ketorolac Tromethamine 60 mg 01/14/25 02:11 01/14/25 02:19 Ketorolac Tromethamine 60 Mg/2 Ml Vial IM 01/14/25 02:12 60 mg ONCE ONE Administration Tramadol HCl 50 mg 01/14/25 02:11 01/14/25 02:19 Tramadol Hcl 50 Mg Tablet PO 01/14/25 02:12 50 mg ONCE ONE Administration Medical Decision Making Medical Decision Making [facility] Narrative: Patient was infiltrated with 10 mL of 1% lidocaine, with an 18 gauge syringe, we are able to extract 2 cc of pus. Patient was given IM ketorolac, p.o. amoxicillin, and 1 dose of p.o. tramadol Patient instructed to follow-up with his dentist tomorrow Differential Diagnosis Differential Diagnoses: The differential diagnosis associated with the presentation includes (Abscess, gingivitis, until fracture) Discharge Plan Discharge Clinical Impression: Dental abscess Patient Disposition: Home, Self-Care Instructions: Dental Abscess (ED), Abscess Incision and Drainage (DC) Additional Instructions: Please follow-up with your dentist and with your primary care physician tomorrow. If you have any worsening or new symptoms, please return to the emergency room or call 911 Prescriptions: New amoxicillin 500 mg tablet 500 mg PO TID 7 Days Qty: 21 0RF tramadol 50 mg tablet 50 mg PO BID PRN (Reason: pain) Qty: 5 0RF Rx Instructions: On use if ketorolac does not help alleviate the pain. ketorolac 10 mg tablet 10 mg PO Q8H PRN (Reason: pain) Qty: 12 0RF Rx Instructions: Do not use this medication with NSAIDs/ibuprofen, only Tylenol if needed Print Language: Jamaican
[2025-01-14 02:22] VITALS: BP 118/71; PULSE 85; RESP 17; TEMP 36.7; O2SAT 97
[2025-01-14 02:28] VITALS: BP 118/71; PULSE 85; RESP 17; TEMP 36.7; O2SAT 97
== END 2025-01-14 02:30 | disposition home or self-care (01) ==
PROVIDERS: Emergency Provider Emergency Medicine
DX: K04.7 Periapical abscess without sinus (principal); K08.89 Other specified disorders of teeth and supporting structures; F17.210 Nicotine dependence, cigarettes, uncomplicated
CPT/HCPCS: 10160; 96372; 99284; J1885

== ENCOUNTER 2025-05-05 08:57 | Emergency (ER) | payer OTHER, SELFPAY ==
--- NOTE | ~2025-05-05 | CT_ITS ---
EXAMINATION: CT SOFT TISSUE NECK WITH CONTRAST CLINICAL INFORMATION: Lower dental abscess, left-sided. COMPARISON: None available. TECHNIQUE: Following the intravenous administration of 60 mL of Omnipaque 350 intravenous contrast, helical imaging was performed in the axial plane with generation of coronal and sagittal reformatted images. This CT examination was performed using dose optimization techniques as appropriate, variously including the following: *Automated exposure control *Adjustment of mA and/or kV according to patient size (this includes techniques or standardized protocols for targeted exams where dose is matched to indication/reason for exam; i.e. extremities or head) *Use of iterative reconstruction technique DLP: 1027 mGy-cm FINDINGS: There is a periapical hypodensity and a dental cavity centered in the second molar, left mandible. There is a focal 3.7 mm gas collection along the buccal margin with a larger, ill-defined heterogeneous enhancement in the anterior left lateral buccal margin of the left mandible. The oral cavity and sublingual compartments demonstrated no fluid collections. Metallic piercing, anterior tongue creating beam hardening artifact. Bilateral likely reactive cervical lymphadenopathy, mostly on the left submandibular compartment. Skull base, nasopharynx, retropharynx, oropharynx, hypopharynx and larynx demonstrated no gross masses or fluid collections. Prominent/enlarged palatine tonsils resulting in narrowing of the oropharynx airway. There is a 3 cm nasal septum defect communicating the left and right nasal cavity. No masses or fluid collections in the intraconal or the extraconal compartments of the orbits. The salivary glands demonstrated no enhancing lesion or sialolithiasis. The filter tank operator compartment, parapharyngeal and carotid compartments demonstrated no fluid collections or masses. The vessels are patent. The thyroid gland is not enlarged. Prominent mediastinal lymph nodes. Spondylosis C5-6 and C6-7 levels resulting in central spinal canal stenosis. Mucosal polypoid mucosal thickening, paranasal sinuses without air-fluid levels. Pneumatized pterygoid recesses and anterior clinoid. Tympanic cavities and mastoid cells are aerated. CT/CT soft tissue neck w IV con IMPRESSION: Periapical abscess, second molar, left mandible and associated phlegmon in the buccal margin of the left mandibular soft tissues and reactive lymphadenopathy. 3 cm and is septum defect likely drop related. Polypoid paranasal sinus disease. Spondylosis, C5-6 and C6-7. Electronically signed by: Michael Snow MD 05/05/2025 12:39 PM EST RP
[2025-05-05 08:59] VITALS: BP 140/66; PULSE 91; RESP 18; TEMP 36.2; O2SAT 96; BMI 34.7
--- NOTE | 2025-05-05 10:22 | ED_ITS ---
HPI - General Adult General Chief complaint: Dental/Oral Stated complaint: Abscess Time Seen by Provider: 05/05/25 09:59 Source: patient, RN notes reviewed and old records reviewed Mode of arrival: ambulatory Limitations: no limitations History of Present Illness ED Provider: Jared [facility] narrative: Patient is a 40 year old male with history of smoking presenting to the emergency department with a complaint of left-sided facial swelling and left lower jaw pain. States he had a dental abscess in the similar area back in November but did not follow up with a dentist afterwards, states he does not have one. Has had that dental pain for a few days but states the swelling occurred when he woke this morning. He denies fevers. Denies any difficulty swallowing or difficulty breathing. MD complaint: facial swelling Onset (ago): hour(s) Related Data Previous Rx's ?Medication ?Instructions ?Recorded amoxicillin 500 mg tablet 500 mg PO TID 7 days #21 tab s 01/14/25 ketorolac 10 mg tablet 10 mg PO Q8H PRN pain #12 ta bs 01/14/25 tramadol 50 mg tablet 50 mg PO BID PRN pain #5 tab s 01/14/25 amoxicillin 875 mg-potassium 1 tab PO BID #20 tabs 12/22 clavulanate 125 mg tablet chlorhexidine gluconate 0.12 % 15 ml buccal BID #118 m L 05/05/25 mouthwash Allergies Allergy/AdvReac Type Severity Reaction Status Date / Time No Known Allergies Allergy Verified 05/05/25 09:02 Review of Systems 2 Review of Systems: as per hpi Yes all other systems are reviewed and are negative Constitutional: Constitutional: Reports as per HPI PMFSH Past Medical History Medical History No known health problems Surgical History No pertinent past surgical history Social History Social History Are you a primary care taker to a significant other at home: No Do you presently have visiting nurse or other home services: No Alcohol intake: never Patient Tobacco Use Status: Current everyday Tobacco user Tobacco use type: Cigarette Cigarette Packs Per Day: 0.5 Cigarettes Per Day: 10.0 Substance Use Type: Marijuana Advance Directives: No Advance Directives Information Provided: No Do you have a plan to hurt others: No Plan Current occupational status: employed 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 Blood pressure normal. Heart rate normal. Respiratory rate normal. Temperature normal. Oxygen saturation normal. Const General: cooperative, healthy appearing and no acute distress Orientation/consciousness: oriented to person, oriented to place, oriented to time and patient oriented x3 Limitations: no limitations HENMT Head: Yes normocephalic and Yes atraumatic Ears: external ears normal General nose exam: Normal external nose present Face and sinus: Yes other (left sided mandibular swelling) Mouth: Normal oral and palatal mucosa present, lip normal, tongue normal, oropharynx normal, moist mucous membranes, no audible dysphonia, no drooling and no trismus Teeth and gingiva: abnormal tooth and associated gingiva lower left tender, with associated gingival edema and with associated gingival fluctuance Teeth image: 2 1. fractured tooth with associated gingival edema and fluctuance Throat: Yes posterior oropharynx normal, Yes uvula midline and No uvular edema Eyes Pupils: Equal, round and reactive pupils present Neck Neck: Yes normal visual inspection and Yes supple Lymphatic: lymphadenopathy left submandibular Resp Effort & Inspection: normal respiratory effort and able to speak in complete sentences Auscultation: clear to auscultation bilaterally Cardio Rate: regular rate Rhythm: regular rhythm Heart sounds: S1 normal heart sound present and S2 normal heart sound present Skin General skin exam: elasticity normal and turgor normal Neuro General: oriented to person, oriented to place, oriented to time, patient oriented x3, moves all extremities, no focal motor deficits and CN's II-XI intact bilaterally Cranial nerves: Yes Equal, round and reactive pupils present Cognition (Neuro): normal cognition Extrem General: Yes full ROM, Yes no pedal edema and Yes no calf tenderness Psych Mental Status: mental status grossly normal Affect: normal affect Thought process: Normal thought process present Medications Administered Discontinued Medications Generic Name Dose Route Start Last Admin Trade Name Freq PRN Reason Stop Dose Admin Iohexol 100 ml 05/05/25 11:48 05/05/25 11:53 Iohexol 350 Mg/Ml 100 Ml Infus..Btl IV 05/05/25 11:49 60 ml ONCE ONE Administration Procedures Abscess I/D Site: oral (periapical abscess tooth #19) Side (if applicable): left Sedation/analgesia: other Local Anesthetic: other anesthetic (topical lidocaine) Technique: needle aspiration Amount of fluid expressed (mL): 1 Sent for culture/gram staining?: No Irrigation: Yes Packing used?: none Medical Decision Making Medical Decision Making [facility] Narrative: Patient is a 40 year old male with history of smoking presenting to the emergency department with a complaint of left-sided facial swelling and left lower jaw pain. On exam patient is awake, A+Ox3, VS WNL, afebrile, normal neurological exam without focal deficits, physical exam findings as above. Given reported symptoms and physical exam findings, initial differential includes but is not limited to dental infection, dental abscess, less likely but still concern for Alvaro's angina. Labs notable for no significant leukocytosis. CT soft tissue neck notable for periapical abscess of 2nd molar, left mandible with associated phlegmon in buccal margin of left mandibular soft tissue with reactive lymphadenopathy. My interpretation is in agreement with the radiologist's interpretation. Case discussed with attending Dr. Mcmahon, who is in agreement with draining abscess and discharge home on PO antibiotics with list of dental providers to call. Abscess drained as per procedure note after verbal consent obtained. Patient tolerated well, no complications. Strict return precautions discussed. Patient verbalized understanding of and agreement with plan. Differential Diagnosis Differential Diagnoses: The differential diagnosis associated with the presentation includes As per [facility] Admission/Observation Consideration of admission/observation: Escalation of care including admission/observation considered Patient would have been admitted to the hospital and transferred to appropriate facility had their clinical presentation warranted hospital admission. Lab Data [facility] Lab Attestation statement: I reviewed the patient's lab results. as per [facility] 05/05/25 11:05 05/05/25 11:05 Labs: Lab Results 05/05/25 Range/Units 11: WBC 10.7 (4.8-10.8) X10*3/uL RBC 4.41 L (4.60-5.80) X10*6/uL Hgb 13.4 L (14.0-18.0) g/dl Hct 39.9 L (42.0-52.0) % MCV 90.5 (80.0-98.0) fL MCH 30.4 (27.0-33.0) pg MCHC 33.6 (31.0-36.0) g/dl RDW 13.2 (11.0-16.0) % Plt Count 282 (160-400) X10*3/uL MPV 9.7 (9.4-12.4) fL Immature Gran % (Auto) 0.3 (0.0-0.4) % Neut % (Auto) 67.8 (45-73) % Lymph % (Auto) 19.1 L (20-40) % [place] % (Auto) 8.7 (2-11) % Eos % (Auto) 3.7 (0-4) % Baso % (Auto) 0.4 (0-2) % Lymph # (Auto) 2.0 (1.2-4.9) X10*3/uL [place] # (Auto) 0.9 (0.1-1.2) X10*3/uL Eos # (Auto) 0.4 (0.0-0.4) X10*3/uL Baso # (Auto) 0.0 (0.0-0.2) X10*3/uL Abs Immat Gran (auto) 0.03 (0.00-0.03) X10*3/uL Absolute Neuts (auto) 7.2 (2.0-8.3) x10*3/uL Absolute Nucleated RBC 0.000 (0.0-0.012) X10*3/uL Nucleated RBC % (auto) 0.0 (0.0-0.2) /100WBC Sodium 141 (135-145) mmol/L Potassium 4.2 (3.3-5.1) mmol/L Chloride 110 H (96-108) mmol/L Carbon Dioxide 25 (22-29) mmol/L Anion Gap 10 L (12-20) BUN 14 (9-16) mg/dL Creatinine 0.75 (0.5-1.4) mg/dL Estim Creat Clear Calc 155.7 Estimated GFR > 60 Random Glucose 105 (60-115) mg/dL Calcium 8.4 (8.4-10.2) mg/dL Total Bilirubin 0.3 (0.0-1.0) mg/dL AST 36 (5-37) U/L ALT 77 H (0-40) U/L Alkaline Phosphatase 72 (39-117) U/L Total Protein 6.8 (6.5-8.0) g/dL Albumin 4.1 (3.5-5.0) g/dL Independent Interpretation I performed an independent interpretation of an: CT Scan Interpretation: CT soft tissue neck notable for periapical abscess of 2nd molar, left mandible with associated phlegmon in buccal margin of left mandibular soft tissue with reactive lymphadenopathy. Radiology Impression Discussion of test interpretation with radiology: I have reviewed the radiologist's reading. Radiologist Impression: CT/CT soft tissue neck w IV con IMPRESSION: Periapical abscess, second molar, left mandible and associated phlegmon in the buccal margin of the left mandibular soft tissues and reactive lymphadenopathy. 3 cm and is septum defect likely drop related. Polypoid paranasal sinus disease. Spondylosis, C5-6 and C6-7. External Record Review External record reviewed: Inpatient record, Office record and Outpatient record Prescription Management I considered prescription management with: Antibiotic Discharge Plan Discharge Clinical Impression: Abscess, periapical Patient Disposition: Home, Self-Care Instructions: Dental Abscess (ED) Additional Instructions: You were evaluated in the emergency department today for complaint of dental pain. You are being treated for a dental abscess with antibiotics. Please complete the full course of antibiotics as prescribed even if your symptoms improve. IT IS IMPORTANT THAT YOU FOLLOW UP WITH A DENTIST. We recommend that you take 600 mg of ibuprofen or 650 mg Tylenol every 6 hours as needed for pain. If necessary, you can alternate these medications every 3 hours. For example, at 9:00 a.m. take Tylenol, then at noon take ibuprofen, then at 3:00 p.m. take Tylenol, etc.. You are being prescribed an antibacterial mouthwash. Return to the emergency department if you develop worsening pain, swelling, difficulty swallowing, difficulty breathing, fever, or any other concerning symptoms. Call or visit any of the clinics below to establish care with a dentist (all of which accept [facility]): [facility] [address] [place], [place] [id number] [place] [address] [place] [address] [place] [address] [address] [place] [address] [address] [place] [address] [address] [facility] [address] [place] [address] [address] [facility] [address] [place] [address] [address] [facility] [address] [place] [address] [address] [facility] [address] [place] [address] [address] [facility] [address] [place] [address] [address] [place] [address] [address] [place] [address] [address] [facility] [address] [place] [address] [facility] [address] [place] [address] [facility] [address] [facility] [address] [place] [address] [facility] [address] [place] [address] [facility] [address] [place] [address] [facility] [address] [place] [address] [facility] [address] [facility] [address] [facility] [address] [place] [address] [address] [place] [address] [address] [place] [address] (One number for all locations) [facility] [address] [place] [address] [facility] [address] [place] [address] [facility] [address] [place] [address] Prescriptions: New amoxicillin-pot clavulanate 875-125 mg tablet 1 tab PO BID Qty: 20 0RF chlorhexidine gluconate 0.12 % mouthwash 15 ml buccal BID Qty: 118 0RF No Action amoxicillin 500 mg tablet 500 mg PO TID 7 Days Qty: 21 0RF tramadol 50 mg tablet 50 mg PO BID PRN (Reason: pain) Qty: 5 0RF Rx Instructions: On use if ketorolac does not help alleviate the pain. ketorolac 10 mg tablet 10 mg PO Q8H PRN (Reason: pain) Qty: 12 0RF Rx Instructions: Do not use this medication with NSAIDs/ibuprofen, only Tylenol if needed Print Language: Lebanese
--- OUTSIDE RECORDS SUMMARY | 2025-05-05 10:35 | XMS_ITS ---
Author Organization Unknown ENCOUNTERS Encounter Performer Location Date Diagnosis Diagnosis Status Emergency [address] [id number] [place] *Note: Encounters from your own facility or health system may be excluded. Allergies, Adverse Reactions, Alerts Allergen Type Severity Identification Date Medications Name Date Quantity Days Supplied GPI Number
[2025-05-05 11:08] LABS: MANUAL DIFF FLAG NO
[2025-05-05 11:15] LABS: Hematocrit 39.9 % (42.0-52.0); Hemoglobin 13.4 g/dl (14.0-18.0); Imm Gran Abs Auto 0.03 X10*3/uL (0.00-0.03); Imm Gran Pct Auto 0.3 % (0.0-0.4); Lymphocytes Absolute Auto 2.0 X10*3/uL (1.2-4.9); Mean Corpuscular HGB Conc 33.6 g/dl (31.0-36.0); Mean Corpuscular Hemoglobin 30.4 pg (27.0-33.0); Mean Corpuscular Volume 90.5 fL (80.0-98.0); NRBC Abs Auto 0.000 X10*3/uL (0.0-0.012); NRBC Pct Auto 0.0 /100WBC (0.0-0.2); Platelet Count 282 X10*3/uL (160-400); Red Blood Count 4.41 X10*6/uL (4.60-5.80); White Blood Count 10.7 X10*3/uL (4.8-10.8)
[2025-05-05 11:23] LABS: Alanine Aminotransferase 77 U/L (0-40); Albumin Level 4.1 g/dL (3.5-5.0); Alkaline Phosphatase 72 U/L (39-117); Anion Gap 10 (12-20); Aspartate Amino Transferase 36 U/L (5-37); Blood Urea Nitrogen 14 mg/dL (9-16); Calcium 8.4 mg/dL (8.4-10.2); Carbon Dioxide 25 mmol/L (22-29); Chloride 110 mmol/L (96-108); Creatinine Clr Calc Pharmacy 155.7; Estimated Glomerular Filt Rate > 60; Potassium 4.2 mmol/L (3.3-5.1); Sodium 141 mmol/L (135-145); Total Protein 6.8 g/dL (6.5-8.0)
[2025-05-05] MEDS: iohexoL 350 MG/ML 100 ML INFUS..BTL IV (11:53)
[2025-05-05 13:52] VITALS: BP 140/66; PULSE 91; RESP 18; TEMP 36.2; O2SAT 96
== END 2025-05-05 13:52 | disposition home or self-care (01) ==
PROVIDERS: Registered Nurse Emergency; Emergency Provider Emergency Medicine
DX: K04.7 Periapical abscess without sinus (principal)
CPT/HCPCS: 36415; 70491; 80053; 85025; 99282; 99284; Q9967

== ENCOUNTER → 2025-05-05 10:48 | Outpatient (BNV) | payer OTHER, SELFPAY | PROVIDERS: Emergency Provider Emergency Medicine; Visit Provider Radiology Diagnostic Radiology | DX: K12.2 Cellulitis and abscess of mouth (principal); J33.1 Polypoid sinus degeneration; M47.812 Spondylosis without myelopathy or radiculopathy, cervical region | CPT/HCPCS: 70491 ==